=== PATIENT | female | born 1975 | race Caucasian/White ===

== ENCOUNTER 2022-06-21 17:51 | Emergency (ER) | payer OTHER, SELFPAY ==
--- NOTE | ~2022-06-21 | US_ITS ---
EXAMINATION: US PELVIS CLINICAL INFORMATION: Pelvic pain after IUD placement COMPARISON: None TECHNIQUE: Ultrasound of the pelvis is performed using both transabdominal and transvaginal transducers along with Doppler. Transvaginal imaging is performed due to inadequate visualization transabdominally. FINDINGS: Uterus: The uterus is retroflexed and measures 6.2 x 3.7 x 3.9 cm. The double wall endometrial thickness is 0.5 mm. An IUD is present within the uterus which appears somewhat low extending into the lower uterine segment/cervix. It is 1.7 cm from the uterine fundus. The uterus is smooth in contour and has normal myometrial echogenicity. 3 subcentimeter fibroids are noted near the fundus with the largest measuring 0.8 cm and the smallest measuring 0.4 cm. Adnexa: Both ovaries are visualized. There is normal color flow to the adnexa. There is no ovarian torsion. There is no pelvic ascites or fluid collection. Right ovary measures 2.8 x 1.0 x 2.1 cm for a volume of 3 mL. Left ovary measures 2.1 x 1.6 x 1.0 cm for a volume of 2 mL. US/US pelvic and transvaginal IMPRESSION: 1. Low-lying IUD. 2. Small subcentimeter uterine fibroids.
[2022-06-21 18:15] VITALS: BP 157/76; PULSE 94; RESP 18; TEMP 37.3; O2SAT 98; BMI 29.8
--- NOTE | 2022-06-21 18:16 | ED_ITS ---
HPI - Female Genitourinary General Chief complaint: General Medical <CHARLIE Nix - Last Filed: 06/21/22 18:20> Stated complaint: IUD issues <CHARLIE Nix - Last Filed: 06/21/22 18:20> Time Seen by Provider: 06/21/22 19:23 <CHARLIE Nix - Last Filed: 06/21/22 18:20> Source: patient <Dorothy Maddox NP - Last Filed: 06/22/22 00:46> Mode of arrival: ambulatory <Dorothy Maddox NP - Last Filed: 06/22/22 00:46> Limitations: no limitations <Dorothy Maddox NP - Last Filed: 06/22/22 00:46> History of Present Illness HPI Narrative: 46-year-old female presents with a sharp stabbing pain in her uterus. Had an IUD placed on 06/17/2022. This sharp stabbing pain is also accompanied with bright red vaginal bleeding. She does not report any trauma, sexual intercourse, purulent drainage, fevers, chills, or abdominal distention. <Dorothy Maddox NP - Last Filed: 06/22/22 00:46> MD elicited complaint: vaginal bleeding and pelvic pain <Dorothy Maddox NP - Last Filed: 06/22/22 00:46> Pertinent past history: IUD <Dorothy Maddox NP - Last Filed: 06/22/22 00:46> Onset (ago): day(s) (4) <Dorothy Maddox NP - Last Filed: 06/22/22 00:46> Location of symptoms: pelvis <Dorothy Maddox NP - Last Filed: 06/22/22 00:46> Severity: moderate <Dorothy Maddox NP - Last Filed: 06/22/22 00:46> Severity scale (1-10): 7 <Dorothy Maddox NP - Last Filed: 06/22/22 00:46> Quality of pain: cramping and sharp <Dorothy Maddox NP - Last Filed: 06/22/22 00:46> Consistency: progressively worsening <Dorothy Maddox NP - Last Filed: 06/22/22 00:46> Vaginal discharge: none <Dorothy Maddox NP - Last Filed: 06/22/22 00:46> Vaginal bleeding: moderate and bright red <Dorothy Maddox NP - Last Filed: 06/22/22 00:46> Exacerbating factors: movement and other (Sitting) <Dorothy Maddox NP - Last Filed: 06/22/22 00:46> Relieving factors: none <Dorothy Maddox NP - Last Filed: 06/22/22 00:46> Associated symptoms: denies other symptoms <Dorothy Maddox NP - Last Filed: 06/22/22 00:46> Treatment prior to arrival: NSAIDs <Dorothy Maddox NP - Last Filed: 06/22/22 00:46> Sexual activity: No <Dorothy Maddox NP - Last Filed: 06/22/22 00:46> Patient : No <Dorothy Maddox NP - Last Filed: 06/22/22 00:46> Related Data Home medications: Previous Rx's Medication Instructions Recorded doxycycline monohydrate 100 mg 100 mg PO BID 7 days #14 caps 06/21/22 capsule metronidazole 500 mg tablet 500 mg PO Q12H 7 days #14 tabs 06/21/22 ondansetron 4 mg disintegrating 4 mg PO Q8H PRN nausea and 06/21/22 tablet vomiting #14 tabs <CHARLIE Nix - Last Filed: 06/21/22 18:20> Allergies/Adverse reactions: Allergies Allergy/AdvReac Type Severity Reaction Status Date / Time Sulfa (Sulfonamide Allergy Unknown SWELLING Unverified 02/27/20 15:19 Antibiotics) <CHARLIE Nix - Last Filed: 06/21/22 18:20> Review of Systems Review of Systems: Constitutional: No Fever, No Chills Cardiovascular: No Chest Pain, No SOB Respiratory: No Cough, No Dyspnea Gastrointestinal: No Nausea, No Vomiting, No Diarrhea, No abdominal Pain Genitourinary: Stabbing uterine pain status post IUD placement, No Dysuria, No Hematuria Musculoskeletal: No joint pain, No Myalgias, No Joint Swelling Skin: No Skin lacerations, No rash Neuro: No Weakness, No Numbness, No Paresthesias, No Dizziness, No Headache <Dorothy Maddox NP - Last Filed: 06/22/22 00:46> Yes all other systems are reviewed and are negative <Dorothy Maddox NP - Last Filed: 06/22/22 00:46> [facility], LAT[facility] Past Medical History Attestation statement: The following information was validated with the patient. <Dorothy Maddox NP - Last Filed: 06/22/22 00:46> Source: old records reviewed <Dorothy Maddox NP - Last Filed: 06/22/22 00:46> Social History Social History: Social History Advance Directives: No Advance Directives Information Provided: No Patient : No <CHARLIE Nix - Last Filed: 06/21/22 18:20> Physical Exam Vital Signs: Vital Signs: Last Vital Signs Temp 99.2 F 06/21/22 18:15 Pulse 94 06/21/22 18:15 Resp 18 06/21/22 18:15 BP 157/76 H 06/21/22 18:15 Pulse Ox 98 06/21/22 18:15 O2 Del Method 06/21/22 18:15 BMI result Body Mass Index 29.8 <CHARLIE Nix - Last Filed: 06/21/22 18:20> Vital Signs: Last Vital Signs Temp 99.2 F 06/21/22 18:15 Pulse 94 06/21/22 18:15 Resp 18 06/21/22 18:15 BP 157/76 H 06/21/22 18:15 Pulse Ox 98 06/21/22 18:15 O2 Del Method 06/21/22 18:15 BMI result Body Mass Index 29.8 <Dorothy Maddox NP - Last Filed: 06/22/22 00:46> Appearance: Alert. Oriented X3. No acute distress. Eyes: Pupils equal, round and reactive to light. ENT: Pharynx normal. Neck: Normal inspection. Neck supple. CVS: Normal heart rate and rhythm. Pulses normal. Respiratory: No respiratory distress. Breath sounds normal. Abdomen: Soft and nontender. Suprapubic tenderness noted to palpation. Genitourinary: Bright red blood per cervical os, plastic portion of the IUD visualized at the os with strings. IUD removed at this time. Skin: Skin warm and dry. Normal skin color. Normal skin turgor. Extremities: No lower extremity edema. It well balance were coordinated. Neuro: No motor deficit. No sensory deficit. Cranial nerves 2-12 intact <Dorothy Maddox NP - Last Filed: 06/22/22 00:46> Course Course Course Narrative: RME - 46 yo female presenting to the ER for evaluation of sharp, stabbing pain in the left pelvic area that radiates into the left leg, acutely worsening today at 5pm after having an IUD placed at [facility] on 06/17. Had severe cramping and bleeding over the weekend but those had improved. <CHARLIE Nix - Last Filed: 06/21/22 18:20> RME - 46 yo female presenting to the ER for evaluation of sharp, stabbing pain in the left pelvic area that radiates into the left leg, acutely worsening today at 5pm after having an IUD placed at [facility] on 06/17. Had severe cramping and bleeding over the weekend but those had improved. 46-year-old female presents for stabbing uterine pain after IUD placement on 06/17/2022. Patient states that she has been unable to sit because of this stabbing pain, has been taking Motrin on a regular basis however the pain has gradually increased. She has been experiencing some vaginal bleeding, bright red blood, requiring multiple pad changes. Patient states that she does not feel right. She does not report fevers, chills, purulent vaginal discharge, or reports of vaginal trauma or sexual activity since placement of the IUD. Pelvic ultrasound indicates a low placed IUD. Pelvic exam completed with elephant keeper, the bottom portion of the plastic IUD visualized at the cervical os, bright red blood per os, otherwise pelvic exam is normal. IUD removed with ring clamp without difficulty. Patient does have some cervical motion tenderness, no purulent drainage noted. Considering that this IUD was not placed properly, patient has high risk for infection, also has cervical motion tenderness, I feel treating her for PID would be appropriate. Will give ceftriaxone and doxycycline. Patient states to have no risk for sexually transmitted infection, ceftriaxone declined at this time. 20:13 patient tolerated procedure well. Bleeding is minimal, patient agrees to follow-up with radial drill press operator. Patient verbalized understanding of and agrees plan of care discharge home. Verbalized understanding of signs symptoms indicating need for emergent intervention. <Dorothy Maddox NP - Last Filed: 06/22/22 00:46> Medications Administered Discontinued Medications Generic Name Dose Route Start Last Admin Trade Name Freq PRN Reason Stop Dose Admin Diphtheria/Tetanus/Acell Pertussis 0.5 ml 06/21/22 20:33 06/21/22 20:40 Diphth,Pertus(Acell),Tet Adult 0.5 Ml Syringe IM 06/21/22 20:34 0.5 ml .ONCE ONE Administration Doxycycline Monohydrate 100 mg 06/21/22 20:19 06/21/22 20:40 Doxycycline Monohydrate 100 Mg Capsule PO 06/21/22 20:20 100 mg ONCE ONE Administration Metronidazole 500 mg 06/21/22 20:19 06/21/22 20:40 Metronidazole 500 Mg Tablet PO 06/21/22 20:20 500 mg ONCE ONE Administration <CHARLIE Nix - Last Filed: 06/21/22 18:20> Medications Administered Discontinued Medications Generic Name Dose Route Start Last Admin Trade Name Freq PRN Reason Stop Dose Admin Diphtheria/Tetanus/Acell Pertussis 0.5 ml 06/21/22 20:33 06/21/22 20:40 Diphth,Pertus(Acell),Tet Adult 0.5 Ml Syringe IM 06/21/22 20:34 0.5 ml .ONCE ONE Administration Doxycycline Monohydrate 100 mg 06/21/22 20:19 06/21/22 20:40 Doxycycline Monohydrate 100 Mg Capsule PO 06/21/22 20:20 100 mg ONCE ONE Administration Metronidazole 500 mg 06/21/22 20:19 06/21/22 20:40 Metronidazole 500 Mg Tablet PO 06/21/22 20:20 500 mg ONCE ONE Administration <Dorothy Maddox NP - Last Filed: 06/22/22 00:46> Medical Decision Making Differential Diagnosis Differential Diagnoses: The differential diagnosis associated with the presentation includes <Dorothy Maddox NP - Last Filed: 06/22/22 00:46> Pelvic inflammatory disease, IUD dislodgement <Dorothy Maddox NP - Last Filed: 06/22/22 00:46> Lab Data MDM Lab Attestation statement: I reviewed the patient's lab results. <Dorothy Maddox NP - Last Filed: 06/22/22 00:46> Independent Interpretation I performed an independent interpretation of an: Ultrasound <Dorothy Maddox NP - Last Filed: 06/22/22 00:46> Radiology Impression Discussion of test interpretation with radiology: I have reviewed the radiologist's reading. <Dorothy Maddox NP - Last Filed: 06/22/22 00:46> Radiologist Impression: CLINICAL INFORMATION:? Pelvic pain after IUD placement COMPARISON: None TECHNIQUE: Ultrasound of the pelvis is performed using both transabdominal and transvaginal transducers along with Doppler. Transvaginal imaging is performed due to inadequate visualization transabdominally. FINDINGS: Uterus: The uterus is retroflexed and measures 6.2 x 3.7 x 3.9 cm. The double wall endometrial thickness is 0.5 mm.? An IUD is present within the uterus which appears somewhat low extending into the lower uterine segment/cervix. It is 1.7 cm from the uterine fundus. The uterus is smooth in contour and has normal myometrial echogenicity. ? 3 subcentimeter fibroids are noted near the fundus with the largest measuring 0.8 cm and the smallest measuring 0.4 cm. Adnexa: Both ovaries are visualized. There is normal color flow to the adnexa. There is no ovarian torsion.? There is no pelvic ascites or fluid collection. Right ovary measures 2.8 x 1.0 x 2.1 cm for a volume of 3 mL. Left ovary measures 2.1 x 1.6 x 1.0 cm for a volume of 2 mL. US/US pelvic and transvaginal IMPRESSION: 1.? Low-lying IUD. 2.? Small subcentimeter uterine fibroids. <Dorothy Maddox NP - Last Filed: 06/22/22 00:46> Discharge Plan Discharge Clinical Impression: Encounter for IUD removal, Uterine adnexal pain <CHARLIE Nix - Last Filed: 06/21/22 18:20> Patient Disposition: Home, Self-Care <CHARLIE Nix - Last Filed: 06/21/22 18:20> Instructions: Pelvic Pain in Women (ED), Removal of Control Implant (DC) <CHARLIE Nix - Last Filed: 06/21/22 18:20> Additional Instructions: You were evaluated for pelvic pain after IUD placement. Pelvic ultrasound indicated a low placement of your IUD. We removed your IUD today. Please take doxycycline and Flagyl for symptoms consistent with pelvic inflammatory disease. Complete the entire course of these medications. Do not drink alcohol while taking Flagyl. Please follow-up with your radial drill press operator Thank you for choosing this emergency department for evaluation. Please follow-up with primary care physician as needed. Return to the emergency department for any new, concerning, or worsening symptoms. <CHARLIE Nix - Last Filed: 06/21/22 18:20> Prescriptions: New doxycycline monohydrate 100 mg capsule 100 mg PO BID 7 Days Qty: 14 0RF metronidazole 500 mg tablet 500 mg PO Q12H 7 Days Qty: 14 0RF ondansetron 4 mg tablet,disintegrating 4 mg PO Q8H PRN (Reason: nausea and vomiting) Qty: 14 0RF <CHARLIE Nix - Last Filed: 06/21/22 18:20> Referrals: Nathanael Ward MD [Physician] - 2 weeks <CHARLEI Nix - Last Filed: 06/21/22 18:20> Stand Alone Forms: Work/School Release <CHARLIE Nix - Last Filed: 06/21/22 18:20> Interventions: ED Discharge Assessment Last Done: 06/21/22 20:46 <CHARLIE Nix - Last Filed: 06/21/22 18:20> Discharge Date/Time: 06/21/22 20:47 <CHARLIE Nix - Last Filed: 06/21/22 18:20>
[2022-06-21] MEDS: Doxycycline Monohydrate 100 MG CAPSULE PO (20:40)
[2022-06-21] MEDS: metroNIDAZOLE 500 MG TABLET PO (20:40)
[2022-06-21] MEDS: Diphth,Pertus(ACell),Tet Adult 0.5 ML SYRINGE IM (20:40)
== END 2022-06-21 20:47 | disposition home or self-care (01) ==
PROVIDERS: Emergency Provider Internal Medicine; PCP Internal Medicine
DX: T83.84XA Pain due to genitourinary prosthetic devices, implants and grafts, initial encounter (principal); Y76.8 Miscellaneous obstetric and gynecological devices associated with adverse incidents, not elsewhere classified; Y92.9 Unspecified place or not applicable
CPT/HCPCS: 76830; 76856; 90471; 90715; 99282; 99284

== ENCOUNTER 2023-05-25 20:53 | Emergency (ER) | payer OTHER, SELFPAY ==
--- NOTE | ~2023-05-25 | XR_ITS ---
EXAMINATION: XR CHEST CLINICAL INFORMATION: SOB and COMPARISON: Cough TECHNIQUE: Frontal view of the chest was obtained. FINDINGS: No significant abnormality is noted involving the heart, lungs, mediastinum, bony thorax or soft tissues. XR/XR chest 1V IMPRESSION: Unremarkable chest examination.
[2023-05-25 21:14] VITALS: BP 190/94; PULSE 101; RESP 20; TEMP 37.1; O2SAT 95; BMI 31.8
[2023-05-25 22:06] LABS: Influenza A PCR NEGATIVE (Negative); Influenza B PCR NEGATIVE (Negative); Resp Syncy Virus RNA Qual PCR POSITIVE (Negative); SARS COV2 PCR INHOUSE NEGATIVE (Negative)
--- NOTE | 2023-05-25 23:03 | ED.GENADULT ---
HPI - General Adult General Chief complaint: Upper Respiratory Symptoms Stated complaint: Cold, chest congestion Time Seen by Provider: 05/25/23 22:52 Source: patient, RN notes reviewed and old records reviewed Mode of arrival: ambulatory Limitations: no limitations History of Present Illness HPI narrative: 47-year-old female with past medical history significant for asthma presents for evaluation of flu-like symptoms Patient reports that last week she had ?a cold. ? She states that was mild, she of her nose and a dry cough Her symptoms resolved a couple of days ago She states that even yesterday she felt well with no complaints Patient woke up this morning with body aches, subjective fevers, chest congestion, cough She has a history of asthma and feels as though she has been wheezing She states that she ran out of her albuterol inhaler Related Data Previous Rx's Medication Instructions Recorded doxycycline monohydrate 100 mg 100 mg PO BID 7 days #14 caps 06/21/22 capsule metronidazole 500 mg tablet 500 mg PO Q12H 7 days #14 tabs 06/21/22 ondansetron 4 mg disintegrating 4 mg PO Q8H PRN nausea and 06/21/22 tablet vomiting #14 tabs albuterol sulfate 90 mcg/actuation 2 puff inhalation Q4-6H PRN 05/25/23 aerosol inhaler shortness of breath or wheezing #8.5 grams Allergies Allergy/AdvReac Type Severity Reaction Status Date / Time Sulfa (Sulfonamide Allergy Unknown SWELLING Verified 05/25/23 21:19 Antibiotics) Review of Systems Constitutional: Constitutional: Reports body ache(s), Reports chills, Reports fever(s), Reports headache(s), Reports malaise and Reports weakness Eyes: Eyes: Denies blurry vision ENT: Reports headache(s), Reports sinus pressure and Reports sore throat Cardiovascular: Cardiovascular: Denies chest pain and Reports dyspnea Respiratory: Respiratory: Reports chest congestion, Reports cough, Reports dyspnea and Reports wheezing Gastrointestinal: Gastrointestinal: Denies abdominal pain, Denies nausea and Denies vomiting Musculoskeletal: Musculoskeletal: Denies back pain Integumentary/Breasts: Skin/Breast: Denies rash Neurologic: Reports headache(s) and Reports weakness Allergic/Immunologic: Allergic/Immunologic: Reports wheezing PMFSH Social History Social History Advance Directives: No Advance Directives Information Provided: Yes Physical Exam ED Vital Signs: Vital Signs - 24 hr 05/25/23 21:14 Temperature 98.7 F Pulse Rate 101 H Respiratory Rate 20 Blood Pressure 190/94 H Pulse Oximetry 95 Oxygen Delivery Method Room Air BMI result Body Mass Index 31.8 Const General: healthy appearing, comfortable, no acute distress, alert and awake Nutritional Appearance: well nourished Orientation/consciousness: patient oriented x3 HENMT Head: Yes normocephalic and Yes atraumatic Throat: Yes posterior oropharynx normal Eyes Eyelids: Yes eyelids normal Conjunctivae: conjunctivae normal Sclerae: sclerae normal Corneas: corneas normal Pupils: Equal, round and reactive pupils present EOM: EOMs intact bilaterally Neck Neck: Yes full ROM Resp Effort & Inspection: normal respiratory effort, able to speak in complete sentences, no audible wheezes and not labored Auscultation: clear to auscultation bilaterally Cardio Rate: regular rate Rhythm: regular rhythm GI Inspection: No distended Palpation (GI): Soft to palpation, not firm, nontender, no guarding and not rigid Skin General skin exam: no rashes or lesions noted and elasticity normal Neuro General: patient oriented x3 Cranial nerves: Yes Equal, round and reactive pupils present and Yes Bilaterally intact EOM present Cognition (Neuro): normal cognition Extrem Other: Moving all extremities well without any obvious deformities Medical Decision Making Medical Decision Making MDM Narrative: 47 old female presents for evaluation of leg symptoms. She tested positive for RSV. Her vital signs are stable. She has no evidence of hypoxia or respiratory distress, chest x-ray was clear. She will be discharged with symptomatic treatment only Differential Diagnosis Differential Diagnoses: The differential diagnosis associated with the presentation includes Viral syndrome Upper respiratory infection Asthma exacerbation Bronchitis Pneumonia RSV COVID-19 Lab Data Labs: Lab Results 05/25/23 Range/Units 21:23 Influenza Type A (PCR) NEGATIVE (Negative) Influenza Type B (PCR) NEGATIVE (Negative) RSV RNA Qual (PCR) POSITIVE A (Negative) SARS-CoV-2 RNA (RT-PCR) NEGATIVE (Negative) Independent Interpretation I performed an independent interpretation of an: Plain X-Ray (No acute infiltrate) Radiology Impression Discussion of test interpretation with radiology: I have reviewed the radiologist's reading. (Unremarkable chest examination) Discharge Plan Discharge Clinical Impression: RSV infection Patient Disposition: Home, Self-Care Instructions: Respiratory Syncytial Virus (ED) Additional Instructions: You tested positive for a virus call the RSV Use ibuprofen/Tylenol for any fevers, headaches or body aches Drink lots of fluids You may use any [id number] congestion or cough medicine Return for new or worsening symptoms Follow-up with your primary doctor Prescriptions: New albuterol sulfate 90 mcg/actuation HFA aerosol inhaler 2 puff inhalation Q4-6H PRN (Reason: shortness of breath or wheezing) Qty: 8.5 0RF No Action doxycycline monohydrate 100 mg capsule 100 mg PO BID 7 Days Qty: 14 0RF metronidazole 500 mg tablet 500 mg PO Q12H 7 Days Qty: 14 0RF ondansetron 4 mg tablet,disintegrating 4 mg PO Q8H PRN (Reason: nausea and vomiting) Qty: 14 0RF Stand Alone Forms: Work/School Release
[2023-05-25 23:51] VITALS: BP 166/73; PULSE 86; RESP 16; TEMP 36.8; O2SAT 97
== END 2023-05-25 23:54 | disposition home or self-care (01) ==
PROVIDERS: Emergency Provider Internal Medicine; PCP Internal Medicine
DX: J22 Unspecified acute lower respiratory infection (principal); B97.4 Respiratory syncytial virus as the cause of diseases classified elsewhere; R05.9 Cough, unspecified; Z20.822 Contact with and (suspected) exposure to COVID-19; Z20.828 Contact with and (suspected) exposure to other viral communicable diseases; Z79.899 Other long term (current) drug therapy
CPT/HCPCS: 0241U; 71045; 99283; 99284

== ENCOUNTER 2023-05-28 01:04 | Emergency (ER) | payer OTHER, SELFPAY ==
[2023-05-28 01:08] VITALS: BP 151/80; PULSE 101; RESP 16; TEMP 36.8; O2SAT 95; BMI 31.6
[2023-05-28 02:02] VITALS: BP 141/79; PULSE 90; RESP 20; TEMP 37.1; O2SAT 96
--- NOTE | 2023-05-28 02:55 | ED_ITS ---
HPI - URI/Sore Throat General Chief Complaint: Upper Respiratory Symptoms Stated Complaint: asthma attack Time Seen by Provider: 05/28/23 02:43 Source: patient Mode of arrival: ambulatory Limitations: no limitations History of Present Illness HPI Narrative: 47-year-old female history of asthma who presents emergency department for evaluation of RSV bronchitis. Patient states she has been sick for several days with nonproductive cough, shortness of breath and chest pain. Patient was seen here on 05/25/2023 and was diagnosed with RSV. Patient states that over the last 8-10 hours she has been coughing nonstop. She states that every time she coughs she has pain in her chest. She states she has been wheezing and feeling short of breath. She has been using her albuterol every 4 hours with no relief of her symptoms. She denied fever, chills, nausea or diarrhea. She states that she has had several episodes of severe cough which have caused her to vomit. Related Data Previous Rx's Medication Instructions Recorded doxycycline monohydrate 100 mg 100 mg PO BID 7 days #14 caps 06/21/22 capsule metronidazole 500 mg tablet 500 mg PO Q12H 7 days #14 tabs 06/21/22 ondansetron 4 mg disintegrating 4 mg PO Q8H PRN nausea and 06/21/22 tablet vomiting #14 tabs albuterol sulfate 90 mcg/actuation 2 puff inhalation Q4-6H PRN 05/25/23 aerosol inhaler shortness of breath or wheezing #8.5 grams prednisone 20 mg tablet 60 mg (3 x 20 mg) PO DAILY 5 days 05/28/23 #15 tabs Allergies Allergy/AdvReac Type Severity Reaction Status Date / Time Sulfa (Sulfonamide Allergy Unknown SWELLING Verified 05/28/23 01:19 Antibiotics) Review of Systems Review of Systems: Yes all other systems are reviewed and are negative [facility] Past Medical History [facility] Narrative: Past medical history: Asthma Social history: She denies tobacco, alcohol and drug use Social History Social History Advance Directives: No Advance Directives Information Provided: No Physical Exam Vital Signs: Vital Signs: Last Vital Signs Temp 98.8 F 05/28/23 02:02 Pulse 100 05/28/23 03:08 Resp 16 05/28/23 03:08 BP 141/79 H 05/28/23 02:02 Pulse Ox 96 05/28/23 02:02 O2 Del Method Room Air 05/28/23 02:02 BMI result Body Mass Index 31.6 Vital signs revealed an elevated blood pressure of 151/80, elevated pulse of 101. O2 saturation on room air was 95% Exam: General: Awake, alert in no distress, patient does have a very persistent nonproductive sounding cough Head: Normocephalic, atraumatic EENT: PERRL, Lids normal, sclera normal, conjunctiva normal, nose normal , ears normal, throat without erythema or exudates Neck: Supple, no adenopathy, no trachea midline or C-spine tenderness Lung: breath sounds symmetric, diffuse wheezing, no rales and no rhonchi Chest: symmetric movement, tenderness palpation of her anterior chest Heart: regular rate and rhythm, normal S1, S2 no murmurs or rubs Abdomen: soft, non-tender, nondistended, normal bowel sounds Back: no vertebral tenderness, no CVAT Extremities: no deformities, moves all extremities symmetrically Skin: no rashes, no lesion, normal color and warmth Neuro: Awake, alert, oriented, normal speech,moves all extremities symmetrically Psych: Pleasant, cooperative Medications Administered Discontinued Medications Generic Name Dose Route Start Last Admin Trade Name Freq PRN Reason Stop Dose Admin Albuterol Sulfate 2.5 mg/ 5 mg 05/28/23 03:02 05/28/23 03:07 Albuterol Sulfate 2.5 mg INHALE 05/28/23 03:03 5 mg ONCE ONE Administration Medical Decision Making Medical Decision Making [facility] Narrative: 47-year-old female with a history of asthma who was diagnosed with RSV bronchitis 2 days prior here in the emergency depart who is complaining of persistent cough causing chest pain, nausea and vomiting. Patient has been using her albuterol inhaler for her asthma every 4 hours with no relief for symptoms. She states she is continuing to wheeze therefore she came to emergency department for evaluation. Examination did reveal diffuse wheezing otherwise unremarkable. Patient was treated with the following: Albuterol nebulizer 5 mg x 1 and prednisone 60 mg orally Patient will be discharged home with a prescription for prednisone 60 mg x5 days to treat asthma exacerbation caused by RSV bronchitis Differential Diagnosis Differential Diagnoses: The differential diagnosis associated with the presentation includes Differential diagnosis includes was not limited to pneumonia, bacterial bronchitis, RSV bronchitis Discharge Plan Discharge Clinical Impression: RSV bronchitis, Asthma exacerbation Patient Disposition: Home, Self-Care Instructions: Asthma (ED) Additional Instructions: Continue using your albuterol inhaler 2 puffs every 4 hours as needed for wheezing and cough. Take prednisone 20 mg pills, 3 pills once a day for 5 days. While you are taking prednisone, do not take any NSAIDs (Motrin, Advil, ibuprofen, Aleve, naproxen). Follow-up with your doctor in 2 days. Please return to the emergency department if your symptoms get worse or if you develop any symptoms that are concerning to you. Prescriptions: New prednisone 20 mg tablet 60 mg PO DAILY 5 Days Qty: 15 0RF No Action doxycycline monohydrate 100 mg capsule 100 mg PO BID 7 Days Qty: 14 0RF metronidazole 500 mg tablet 500 mg PO Q12H 7 Days Qty: 14 0RF ondansetron 4 mg tablet,disintegrating 4 mg PO Q8H PRN (Reason: nausea and vomiting) Qty: 14 0RF albuterol sulfate 90 mcg/actuation HFA aerosol inhaler 2 puff inhalation Q4-6H PRN (Reason: shortness of breath or wheezing) Qty: 8.5 0RF
[2023-05-28] MEDS: Albuterol Sulfate 2.5 MG, Albuterol Sulfate (0.083%) 2.5 MG 5 MG INHALE (03:07)
[2023-05-28 03:08] VITALS: PULSE 100; RESP 16; O2SAT 93
[2023-05-28] MEDS: predniSONE 20 MG TABLET 60 MG PO (03:35)
[2023-05-28 03:40] VITALS: BP 157/65; PULSE 112; RESP 16
--- NOTE | 2023-05-28 03:45 | PC.NURSE ---
pt medicated according to mar. vss. pt ambulatory at discharge. pt calm and cooperative. pt provided with discharge plan. pt verbalized understanding of discharge plan
== END 2023-05-28 03:50 | disposition home or self-care (01) ==
PROVIDERS: Emergency Provider Emergency Medicine Emergency Medical Services; PCP Internal Medicine
DX: J20.5 Acute bronchitis due to respiratory syncytial virus (principal); J45.901 Unspecified asthma with (acute) exacerbation; R05.9 Cough, unspecified; R06.02 Shortness of breath
CPT/HCPCS: 94640; 99284

== ENCOUNTER 2023-09-23 23:41 | Emergency (ER) | payer OTHER, SELFPAY ==
[2023-09-23 23:45] VITALS: BP 145/89; PULSE 90; RESP 16; TEMP 36.7; O2SAT 96; BMI 29.7
[2023-09-24 00:31] LABS: MANUAL DIFF FLAG NO
[2023-09-24 00:33] LABS: Basophils Absolute Auto 0.1 X10*3/uL (0.0-0.2); Basophils Percent Auto 0.4 % (0-2); Eosinophils Absolute Auto 0.3 X10*3/uL (0.0-0.4); Eosinophils Percent Auto 1.7 % (0-4); Hematocrit 41.2 % (37.0-47.0); Hemoglobin 13.9 g/dl (12.0-16.0); Imm Gran Abs Auto 0.08 X10*3/uL (0.00-0.03); Imm Gran Pct Auto 0.4 % (0.0-0.4); Lymphocytes Absolute Auto 2.7 X10*3/uL (1.2-4.9); Lymphocytes Percent Auto 13.3 % (20-40); Mean Corpuscular HGB Conc 33.7 g/dl (31.0-35.0); Mean Corpuscular Hemoglobin 29.3 pg (27.0-33.0); Mean Corpuscular Volume 86.9 fL (80.0-98.0); Mean Platelet Volume 9.2 fL (9.4-12.3); Monocytes Absolute Auto 1.4 X10*3/uL (0.1-1.2); Monocytes Percent Auto 7.2 % (2-11); Neutrophils Absolute Auto 15.4 x10*3/uL (2.0-8.3); Platelet Count 442 X10*3/uL (160-400); Red Blood Count 4.74 X10*6/uL (4.20-5.50); Red Cell Distribution Width 13.2 % (11.0-16.0)
[2023-09-24 00:42] LABS: IDNOW Serial# 08D9AD1C; Strep A Nucleic Acid Negative (Negative)
[2023-09-24 00:56] LABS: Alanine Aminotransferase 17 U/L (0-31); Albumin Level 4.4 g/dL (3.5-5.0); Alkaline Phosphatase 95 U/L (39-117); Anion Gap 14 (12-20); Aspartate Amino Transferase 19 U/L (5-31); Bilirubin Total 0.5 mg/dL (0.0-1.0); Blood Urea Nitrogen 17 mg/dL (9-16); Calcium 9.5 mg/dL (8.4-10.2); Carbon Dioxide 25 mmol/L (22-29); Chloride 104 mmol/L (96-108); Creatinine Clr Calc Pharmacy 96.8; Estimated Glomerular Filt Rate > 60; Glucose Random 96 mg/dL (60-115); Potassium 3.2 mmol/L (3.3-5.1); Sodium 140 mmol/L (135-145); Total Protein 7.8 g/dL (6.5-8.0)
[2023-09-24 01:09] LABS: Influenza A PCR NEGATIVE (Negative); Influenza B PCR NEGATIVE (Negative); Resp Syncy Virus RNA Qual PCR NEGATIVE (Negative); SARS COV2 PCR INHOUSE NEGATIVE (Negative)
--- NOTE | 2023-09-24 03:56 | ED_ITS ---
HPI - General Adult General Chief complaint: Upper Respiratory Symptoms Stated complaint: sore and swollen throat, hard to swollen Time Seen by Provider: 09/24/23 03:29 Source: patient Mode of arrival: ambulatory Limitations: no limitations History of Present Illness HPI narrative: Patient with sore throat running nose started earlier today patient had oral sex with her boyfriend who was not Uro for last 1 week patient afraid might be having gonococcal infection in the mouth requesting the test denies any vaginal secretions Related Data Previous Rx's ?Medication ?Instructions ?Recorded doxycycline monohydrate 100 mg 100 mg PO BID 7 days #14 caps 06/21/22 capsule metronidazole 500 mg tablet 500 mg PO Q12H 7 days #14 tabs 06/21/22 ondansetron 4 mg disintegrating 4 mg PO Q8H PRN nausea and 06/21/22 tablet vomiting #14 tabs albuterol sulfate 90 mcg/actuation 2 puff inhalation Q4-6H PRN 05/25/23 aerosol inhaler shortness of breath or wheezing #8.5 grams prednisone 20 mg tablet 60 mg (3 x 20 mg) PO DAILY 5 days 05/28/23 #15 tabs cefuroxime axetil 500 mg tablet 500 mg PO BID 7 days #14 tabs 09/24/23 Allergies Allergy/AdvReac Type Severity Reaction Status Date / Time Sulfa (Sulfonamide Allergy Unknown SWELLING Verified 09/23/23 23:45 Antibiotics) Review of Systems 2 Review of Systems: Yes all other systems are reviewed and are negative [facility] Social History Social History Alcohol intake: former Smoked in Last 30 Days: No Use of substances other than those prescribed or required for medical reasons: No Advance Directives: No Advance Directives Information Provided: No Patient : No Physical Exam ED Vital Signs: Vital Signs - 24 hr 09/23/23 23:45 09/24/23 04:06 09/24/23 04:39 Temperature 98.1 F 98.3 F Pulse Rate 90 89 Respiratory Rate 16 12 Blood Pressure 145/89 H 149/91 H Pulse Oximetry 96 98 94 Oxygen Delivery Method Room Air Room Air Room Air BMI result Body Mass Index 29.7 Appearance: Alert. Oriented X3. No acute distress. ENT: Posterior pharynx erythematous with exudate on left tonsil Oral Mucosa moist Neck: Normal inspection. Neck supple. Upper cervical lymphadenopathy++ CVS: Normal heart rate and rhythm. Pulses normal. Respiratory: No respiratory distress. Equal air entry bilateral, no wheezing/rales/rhonchi Abdomen: Soft and nontender. Bowel sounds are present, Skin: Skin warm and dry. Normal skin color. Normal skin turgor. Extremities: No lower extremity edema. No calf tenderness Neuro: Oriented X 3. Medications Administered Discontinued Medications Generic Name Dose Route Start Last Admin Trade Name Freq PRN Reason Stop Dose Admin Sodium Chloride 1,000 mls @ 999 mls/hr 09/24/23 04:05 09/24/23 04:36 Ns IV 09/24/23 05:05 999 mls/hr .Q1H1M ONE Administration Ceftriaxone Sodium 1 gm/ 50 mls @ 100 mls/hr 09/24/23 04:05 09/24/23 04:36 Sodium Chloride IV 09/24/23 04:34 100 mls/hr ONCE ONE Administration Medical Decision Making Medical Decision Making [facility] Narrative: Patient with acute pharyngitis likely strep sample for GC was taken per patient's request patient was given 1 g of Rocephin and IV fluids patient's WBC count is elevated but lactic acid normal discharge patient home Differential Diagnosis Differential Diagnoses: The differential diagnosis associated with the presentation includes Strep pharyngitis/tonsillitis Lab Data [facility] Lab Attestation statement: I reviewed the patient's lab results. 09/24/23 00:26 09/24/23 00:26 Labs: Lab Results 09/24/23 09/24/23 Range/Units 00:26 04:31 WBC 20.0 H (4.8-10.8) X10*3/uL RBC 4.74 (4.20-5.50) X10*6/uL Hgb 13.9 (12.0-16.0) g/dl Hct 41.2 (37.0-47.0) % MCV 86.9 (80.0-98.0) fL MCH 29.3 (27.0-33.0) pg MCHC 33.7 (31.0-35.0) g/dl RDW 13.2 (11.0-16.0) % Plt Count 442 H (160-400) X10*3/uL MPV 9.2 L (9.4-12.3) fL Immature Gran % (Auto) 0.4 (0.0-0.4) % Neut % (Auto) 77.0 H (45-73) % Lymph % (Auto) 13.3 L (20-40) % [place] % (Auto) 7.2 (2-11) % Eos % (Auto) 1.7 (0-4) % Baso % (Auto) 0.4 (0-2) % Lymph # (Auto) 2.7 (1.2-4.9) X10*3/uL [place] # (Auto) 1.4 H (0.1-1.2) X10*3/uL Eos # (Auto) 0.3 (0.0-0.4) X10*3/uL Baso # (Auto) 0.1 (0.0-0.2) X10*3/uL Abs Immat Gran (auto) 0.08 H (0.00-0.03) X10*3/uL Absolute Neuts (auto) 15.4 H (2.0-8.3) x10*3/uL Absolute Nucleated RBC 0.000 (0.0-0.012) X10*3/uL Nucleated RBC % (auto) 0.0 (0.0-0.2) /100WBC Sodium 140 (135-145) mmol/L Potassium 3.2 L (3.3-5.1) mmol/L Chloride 104 (96-108) mmol/L Carbon Dioxide 25 (22-29) mmol/L Anion Gap 14 (12-20) BUN 17 H (9-16) mg/dL Creatinine 0.72 (0.5-1.4) mg/dL Estim Creat Clear Calc 96.8 Estimated GFR > 60 Random Glucose 96 (60-115) mg/dL Lactic Acid 0.9 (0.5-2.0) mmol/L Calcium 9.5 (8.4-10.2) mg/dL Total Bilirubin 0.5 (0.0-1.0) mg/dL AST 19 (5-31) U/L ALT 17 (0-31) U/L Alkaline Phosphatase 95 (39-117) U/L Total Protein 7.8 (6.5-8.0) g/dL Albumin 4.4 (3.5-5.0) g/dL Influenza Type A (PCR) NEGATIVE (Negative) Influenza Type B (PCR) NEGATIVE (Negative) RSV RNA Qual (PCR) NEGATIVE (Negative) SARS-CoV-2 RNA (RT-PCR) NEGATIVE (Negative) S. pyogenes GrpA LIONEL Negative (Negative) Discharge Plan Discharge Clinical Impression: Pharyngitis Patient Disposition: Home, Self-Care Instructions: Pharyngitis (ED) Additional Instructions: Likely you have strep pharyngitis although rapid test is negative Take antibiotic as prescribed Report to the ER if not better Tylenol/Motrin for fever/bodyache Prescriptions: New cefuroxime axetil 500 mg tablet 500 mg PO BID 7 Days Qty: 14 0RF No Action doxycycline monohydrate 100 mg capsule 100 mg PO BID 7 Days Qty: 14 0RF metronidazole 500 mg tablet 500 mg PO Q12H 7 Days Qty: 14 0RF ondansetron 4 mg tablet,disintegrating 4 mg PO Q8H PRN (Reason: nausea and vomiting) Qty: 14 0RF albuterol sulfate 90 mcg/actuation HFA aerosol inhaler 2 puff inhalation Q4-6H PRN (Reason: shortness of breath or wheezing) Qty: 8.5 0RF prednisone 20 mg tablet 60 mg PO DAILY 5 Days Qty: 15 0RF Print Language: Greek
[2023-09-24 04:06] VITALS: BP 149/91; PULSE 89; RESP 12; TEMP 36.8; O2SAT 98
[2023-09-24] MEDS: cefTRIAXone sodium 1 GM in 0.9 % Sodium Chloride 50 ML IV (04:36)
[2023-09-24] MEDS: 0.9 % Sodium Chloride 1,000 ML 999 ML IV (04:36)
[2023-09-24 04:39] VITALS: O2SAT 94
--- NOTE | 2023-09-24 04:42 | PC.NURSE ---
assumed care of pt, pt from home, a&ox4, respirations even and unlabored, pt reporting 10/10 sore throat x2 days, reports they are able to maintain fluids and food but reports increased pain with swallowing. pt reports having new boyfriend and reports she would like a swab to be sure of diseases. swabbed pt. swab sent to lab. 20G placed in right wrist, fluids hanging and antibiotics administered.
[2023-09-24 04:47] LABS: Lactic Acid 0.9 mmol/L (0.5-2.0)
[2023-09-24 06:14] VITALS: BP 149/73; PULSE 90; RESP 18; TEMP 36.8; O2SAT 95
[2023-09-24 06:28] VITALS: BP 149/73; PULSE 90; RESP 18; TEMP 36.8; O2SAT 95
[2023-09-25 18:13] LABS: C. trachomatis RNA TMA NOT DETECTED (NOT DETECTED); N. gonorrhoeae RNA TMA NOT DETECTED (NOT DETECTED)
== END 2023-09-24 06:29 | disposition home or self-care (01) ==
PROVIDERS: Emergency Provider Internal Medicine; PCP Internal Medicine
DX: J02.9 Acute pharyngitis, unspecified (principal); Z88.2 Allergy status to sulfonamides; Z03.818 Encounter for observation for suspected exposure to other biological agents ruled out
CPT/HCPCS: 0241U; 0353U; 36415; 80053; 83605; 85025; 87040; 87491; 87591; 87651; 96361; 96365; 99284; 99285; J0696

== ENCOUNTER 2023-12-02 17:26 | Emergency (ER) | payer OTHER, SELFPAY ==
--- NOTE | 2023-12-02 17:35 | ED_ITS ---
HPI - General Adult General Chief complaint: General Medical Stated complaint: foreign object stuck in rectum Time Seen by Provider: 12/02/23 17:46 Source: patient Mode of arrival: ambulatory Limitations: no limitations History of Present Illness ED Provider: Roni Patel APRN HPI narrative: 48-year-old female here with reports of butt plug stuck in her rectum for the last 1 hour. No abdominal pain, vomiting. Related Data Previous Rx's ?Medication ?Instructions ?Recorded doxycycline monohydrate 100 mg 100 mg PO BID 7 days #14 caps 06/21/22 capsule metronidazole 500 mg tablet 500 mg PO Q12H 7 days #14 tabs 06/21/22 ondansetron 4 mg disintegrating 4 mg PO Q8H PRN nausea and 06/21/22 tablet vomiting #14 tabs albuterol sulfate 90 mcg/actuation 2 puff inhalation Q4-6H PRN 05/25/23 aerosol inhaler shortness of breath or wheezing #8.5 grams prednisone 20 mg tablet 60 mg (3 x 20 mg) PO DAILY 5 days 05/28/23 #15 tabs cefuroxime axetil 500 mg tablet 500 mg PO BID 7 days #14 tabs 09/24/23 Allergies Allergy/AdvReac Type Severity Reaction Status Date / Time Sulfa (Sulfonamide Allergy Unknown SWELLING Verified 12/02/23 17:39 Antibiotics) Review of Systems Review of Systems: Yes all other systems are reviewed and are negative Constitutional: Constitutional: Reports no additional constitutional complaints, Denies body ache(s), Denies chills, Denies fever(s), Denies headache(s) and Denies weakness Eyes: Eyes: Reports no additional eye complaints and Denies change in vision ENT: Reports system reviewed and no additional complaints, except as documented, Denies dizziness, Denies headache(s), Denies nasal congestion, Denies nasal discharge and Denies neck pain Cardiovascular: Cardiovascular: Reports no additional cardiovascular complaints, Denies chest pain, Denies leg edema and Denies dyspnea Respiratory: Respiratory: Reports no additional respiratory complaints, Denies cough and Denies dyspnea Gastrointestinal: Gastrointestinal: Reports no additional gastrointestinal complaints, Denies abdominal pain, Denies diarrhea, Denies nausea and Denies vomiting Genitourinary: Genitourinary: Reports no additional female genitourinary complaints and Denies urinary incontinence Musculoskeletal: Musculoskeletal: Reports no additional musculoskeletal complaints, Denies back pain, Denies arthralgias, Denies joint swelling, Denies neck pain, Denies numbness and Denies tingling Integumentary/Breasts: Skin/Breast: Reports system reviewed and no additional complaints, except as docu and Denies rash Neurologic: Reports system reviewed and no additional complaints, except as documented, Denies Abnormal speech present, Denies dizziness, Denies headache(s), Denies numbness, Denies tingling and Denies weakness [facility] Past Medical History Attestation statement: The following information was validated with the patient. Source: old records reviewed and nursing notes reviewed Social History Social History Alcohol intake: former Advance Directives: No Advance Directives Information Provided: No Physical Exam ED Vital Signs: Vital Signs - 24 hr 12/02/23 17:37 12/02/23 18:03 Temperature 98 F 98 F Pulse Rate 88 88 Respiratory Rate 19 19 Blood Pressure 156/78 H 156/78 H Pulse Oximetry 98 98 Oxygen Delivery Method Room Air Room Air BMI result Body Mass Index 27.5 Const General: cooperative, healthy appearing, comfortable and no acute distress Orientation/consciousness: patient oriented x3 Limitations: no limitations HENMT Head: Yes normal to inspection Ears: hearing grossly normal bilaterally General nose exam: Normal external nose present Face and sinus: Yes normal facial exam Mouth: Normal oral and palatal mucosa present Throat: Yes posterior oropharynx normal Eyes General: appearance normal, both eyes and all related structures Pupils: Equal, round and reactive pupils present Neck Neck: Yes normal visual inspection Chest Chest palpation & inspection: normal inspection of the chest Resp Effort & Inspection: normal respiratory effort Auscultation: clear to auscultation bilaterally Cardio Rate: regular rate Rhythm: regular rhythm Peripheral pulses: Peripheral pulses 2+ throughout 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 Inspection: Yes normal to inspection Palpation (GI): Soft to palpation and nontender Auscultation: normal bowel sounds Rectal Exam - Female: visual inspection normal and other (FB felt) Back/Spine/Pelvis Thoracic/Lumbar Spine: thoracic and lumbar spine normal to inspection Skin General skin exam: no rashes or lesions noted Neuro General: patient oriented x3, no focal motor deficits and normal sensation to monofilament Cranial nerves: Yes Equal, round and reactive pupils present Cognition (Neuro): normal cognition Speech: No Abnormal speech present Gait exam (Neuro): Normal gait present Motor exam (neuro): 5/5 motor strength present throughout Extrem General: Yes normal to inspection Course Course Course Narrative: This is a rapid medical exam performed by Vaughn Wilder NP: Additional HPI, ROS, PE not included below will be deferred to primary provider. Patient is a 48-year-old female presenting to the ED with complaint of a glass butt plug in her rectum for the past 45 minutes. Reports mild pain to abdomen. States used too much lubricant and is unable to remove it herself. Plan: KUB Procedures Foreign Body Removal Site: rectum Description of foreign body: sex toy Sedation/Analgesia: none Technique: manual removal Complications: none Medical Decision Making Medical Decision Making MDM Narrative: 48-year-old female here with reports of butt plug stuck in her rectum for the last 1 hour. No abdominal pain, vomiting. See procedure note. Successful removal. Patient tolerating well. Differential Diagnosis Differential Diagnoses: The differential diagnosis associated with the presentation includes Rectal foreign body Admission/Observation Consideration of admission/observation: Escalation of care including admission/observation considered no reports of abdominal pain or vomiting with the soft nontender abdomen with low suspicion for bowel perforation requiring advanced imaging and/or admission Tests considered The following testing was considered but not selected: no reports of abdominal pain or vomiting with the soft nontender abdomen with low suspicion for bowel perforation requiring advanced imaging Discharge Plan Discharge Clinical Impression: Foreign body anus/rectum Patient Disposition: Home, Self-Care Instructions: Rectal Foreign Body (ED) Prescriptions: No Action doxycycline monohydrate 100 mg capsule 100 mg PO BID 7 Days Qty: 14 0RF metronidazole 500 mg tablet 500 mg PO Q12H 7 Days Qty: 14 0RF ondansetron 4 mg tablet,disintegrating 4 mg PO Q8H PRN (Reason: nausea and vomiting) Qty: 14 0RF albuterol sulfate 90 mcg/actuation HFA aerosol inhaler 2 puff inhalation Q4-6H PRN (Reason: shortness of breath or wheezing) Qty: 8.5 0RF prednisone 20 mg tablet 60 mg PO DAILY 5 Days Qty: 15 0RF cefuroxime axetil 500 mg tablet 500 mg PO BID 7 Days Qty: 14 0RF Interventions: ED Discharge Assessment Last Done: 12/02/23 18:03 Print Language: Albanian
[2023-12-02 17:37] VITALS: BP 156/78; PULSE 88; RESP 19; TEMP 36.6; O2SAT 98; BMI 27.5
[2023-12-02 18:03] VITALS: BP 156/78; PULSE 88; RESP 19; TEMP 36.6; O2SAT 98
--- NOTE | 2023-12-02 18:05 | PC.NURSE ---
nad, no complaints now, tolerated well per pt
--- OUTSIDE RECORDS SUMMARY | 2023-12-07 07:12 | XMS_ITS | Continuity of Care Document ---
Author Organization [facility] Address [address] [place] [address]- Care Team Providers Care Torch Brazer Name Role Phone MD Queen David B Primary Care Physician Encounter [facility] Date(s): 10/21/21 - 02/08/22 [facility] [address] [place] [id number] Discharge Disposition: A-D/C Home Attending Physician: Juan Daniel Carrillo MD Admitting Physician: Juan Daniel Carrillo MD Referring Physician: Samy BURGER, Bairon Sharma Allergies, Adverse Reactions, Alerts Substance Reaction Severity Status sulfADIAZINE EYE REACTION Active Medications albuterol 90 mcg/inh inhalation aerosol with adapter 2, puffs, Inhalation, 4 times a day, 0, 0, 12/20/06 16:20:17, Print FRANCISCO Number, [id number], Constant Indicator Start Date: 12/20/06 Status: Ordered Bentyl 10 mg oral capsule = 20 mg, By Mouth, 4 times a day, 0 Refills, Maintenance, 10/11/18 9:14:59 EDT Start Date: 10/11/18 Status: Ordered lamotrigine 150 mg oral tablet = 125 mg, By Mouth, 2 times a day, # 60 tablet, 0 Refills, Maintenance, 10/11/18 9:14:44 EDT, Tablet Start Date: 10/11/18 Status: Ordered Elidia 1, tablet, By Mouth, Daily, 0, 0, 03/15/07 16:00:09, Print FRANCISCO Number, [id number], Constant Indicator Start Date: 03/15/07 Status: Ordered Social History Social History Type Response Smoking Status Former smoker, quit more than 30 days ago entered on: 12/12/18 Sex Care Team Personnel Name: MD Queen David B Address: [address] [place] [address], [address] Floor [facility] [place] [address]-
--- OUTSIDE RECORDS SUMMARY | 2023-12-07 07:12 | XMS_ITS | Continuity of Care Document ---
Author Organization [facility] Address [address] [place] [address]- Care Team Providers Care Auto Parts Manager Name Role Phone MD Queen David B Primary Care Physician Encounter [facility] [facility] [id number] Date(s): 10/27/23 - 11/26/23 [facility] [address] [place] [id number] Attending Physician: Conrad Holder Admitting Physician: AdmtrConrad Referring Physician: Admtr [id number] Allergies, Adverse Reactions, Alerts Substance Reaction Severity [...] 0, 0, 03/15/07 16:00:09, Print FRANCISCO Number, [id number], Constant Indicator Start Date: 03/15/07 Status: Ordered Social History Social History Type Response Smoking Status Former smoker, quit more than 30 days ago entered on: 12/12/18 Sex Patient Care team information Care Team Personnel Name: MD Queen David B Position: [facility] Outreach Member Role: PCP Address: Address: [address] [place] [address], [address] Floor [facility] [place] [address]- Name: Karlene Stone Position: [facility] Outreach Member Role: Lifetime Consulting Physician Name: Nupur James RN Position: [facility] Onco RN Member Role: Primary Care Nurse Care Team Related Persons Name: ARASELI XAVIER Address: home [address] [place] [address] Name: ZBIGNIEW MANTILLA Address: home [address] [place] [address]
--- OUTSIDE RECORDS SUMMARY | 2023-12-07 07:12 | XMS_ITS | Continuity of Care Document ---
Author Organization [facility] Address [address] [place] [address]- Care Team Providers Care Bath Steward/Stewardess Name Role Phone MD Queen David B Primary Care Physician Encounter [facility] [place] Date(s): 03/02/23 - 04/01/23 [facility] [address] [place], [place] [address] Attending Physician: [id number] Admitting Physician: Admtr, Ar8 Referring Physician: Admtr, Ar8 Allergies, Adverse Reactions, Alerts Substance Reaction [...] 0, 0, 03/15/07 16:00:09, Print FRANCISCO Number, [email or web address], Constant Indicator Start Date: 03/15/07 Status: Ordered Social History Social History Type Response Smoking Status Former smoker, quit more than 30 days ago entered on: 12/12/18 Sex Patient Care team information Care Team Personnel Name: MD Queen David B Position: S Outreach Member Role: PCP Address: Address: [address] [place] [address] 3rd Floor [facility] [place] [address]- [place] Name: Karlene Stone Position: [facility] Outreach Member Role: Lifetime Consulting Physician Name: Nupur James RN Position: [facility] Onco RN Member Role: Primary Care Nurse Care Team Related Persons Name: ARASELI XAVIER Address: home [address] [place] [address] Name: ZBIGNIEW MANTILLA Address: home [address] [place] [address]
--- OUTSIDE RECORDS SUMMARY | 2023-12-07 07:12 | XMS_ITS | Continuity of Care Document ---
Author Organization [facility] Address [address] [place] [address]- Care Team Providers Care Staff Trainer Name Role Phone MD Bret, Kye Pace Primary Care Physician [place] [facility] [place] 10[place]12[place]20 - 01/19/21 [facility] [address] [place], [place] [address] Discharge Disposition: A-D/C Home Attending Physician: Juan [...] 0, 0, 03/15/07 16:00:09, Print FRANCISCO Number, [id number], Constant Indicator Start Date: 03/15/07 Status: Ordered Social History Social History Type Response Smoking Status Former smoker, quit more than 30 days ago entered on: 12/12/18 Sex
--- OUTSIDE RECORDS SUMMARY | 2023-12-07 07:12 | XMS_ITS | Continuity of Care Document ---
Author Organization [facility] Address [address] [place] [address]- Care Team Providers Care Dispatcher Maintenance Service Name Role Phone MD Bret, Kye Pace Primary Care Physician Encounter [facility] [place] Date(s): 07/23/19 - 08/02/19 [facility] [address] [place] [address]- [facility] Attending Physician: Admdevi, Conrad Admitting Physician: AdmtrConrad Referring Physician: Admtr, Ar8 Allergies, Adverse Reactions, [...] 0, 0, 03/15/07 16:00:09, Print FRANCISCO Number, [id number], Constant Indicator Start Date: 03/15/07 Status: Ordered Social History Social History Type Response Smoking Status Former smoker, quit more than 30 days ago entered on: 12/12/18 Sex
--- OUTSIDE RECORDS SUMMARY | 2023-12-07 07:12 | XMS_ITS | Continuity of Care Document ---
Author Organization [facility] Address [address] [place] [address]- Care Team Providers Care Online Content Editor Name Role Phone MD Queen David B Primary Care Physician Encounter [facility] [place] Date(s): 03/02/23 - 06/16/23 [facility] [address] [place] [address] Discharge Disposition: A-D/C Home Attending Physician: Juan [...] 0, 0, 03/15/07 16:00:09, Print FRANCISCO Number, [id number], Constant Indicator Start Date: 03/15/07 Status: Ordered Social History Social History Type Response Smoking Status Former smoker, quit more than 30 days ago entered on: 12/12/18 Sex Patient Care team information Care Team Personnel Name: MD Queen David B Position: [facility] Outreach Member Role: PCP Address: Address: [address] [facility], 3rd Floor [facility] [place] [address]- Name: Karlene Stone Position: [facility] Outreach Member Role: Lifetime Consulting Physician Name: Nupur James RN Position: [facility] Onco RN Member Role: Primary Care Nurse Care Team Related Persons Name: ARASELI XAVIER Address: [address] [place] [address] Name: ZBIGNIEW MANTILLA Address: home [address] [place] [address]
--- OUTSIDE RECORDS SUMMARY | 2023-12-07 07:12 | XMS_ITS | Continuity of Care Document ---
Author Organization [facility] Address [address] [place] [address]- Care Team Providers Care Plant Sciences Professor Name Role Phone MD Bret, Kye Pace Primary Care Physician Encounter [facility] [place] Date(s): 07/23/19 - 10/12/20 [facility] [address] [place], [place] [address] Discharge Disposition: A-D/C Home Attending Physician: [...] 0, 0, 03/15/07 16:00:09, Print FRANCISCO Number, [id number], Constant Indicator Start Date: 03/15/07 Status: Ordered Social History Social History Type Response Smoking Status Former smoker, quit more than 30 days ago entered on: 12/12/18 Sex
--- OUTSIDE RECORDS SUMMARY | 2023-12-07 07:12 | XMS_ITS | Continuity of Care Document ---
Author Organization [facility] Address [address] [place] [address]- Care Team Providers Care Morphologist Name Role Phone MD Bret, Kye Pace Primary Care Physician En[place] [facility] [place] Date(s): 10/21/21 - 11/20/21 [facility] [address] [place] [address]- Attending Physician: Admtr, Ye8 Admitting Physician: Admtr, Ar8 Referring Physician: Admtr, [...] 0, 0, 03/15/07 16:00:09, Print FRANCISCO Number, [id number], Constant Indicator Start Date: 03/15/07 Status: Ordered Social History Social History Type Response Smoking Status Former smoker, quit more than 30 days ago entered on: 12/12/18 Sex
--- OUTSIDE RECORDS SUMMARY | 2023-12-07 07:12 | XMS_ITS | Continuity of Care Document ---
Author Organization [facility] for [facility] Address [address] [place] [address]- Care Team Providers Care Tag Maker Name Role Phone MD Bret, Kye Pace Primary Care Physician [place] [facility] [place] Date(s): 10/12/20 - 11/11/20 [facility] [address] [place] [address]- Attending Physician: Admtr, Ye8 Admitting Physician: Admtr, [...] 0, 0, 03/15/07 16:00:09, Print FRANCISCO Number, [email or web address], Constant Indicator Start Date: 03/15/07 Status: Ordered Social History Social History Type Response Smoking Status Former smoker, quit more than 30 days ago entered on: 12/12/18 Sex
== END 2023-12-02 18:05 | disposition home or self-care (01) ==
PROVIDERS: Emergency Provider Student in an Organized Health Care Education/Training Program; PCP Internal Medicine
DX: T18.5XXA Foreign body in anus and rectum, initial encounter (principal); W44.B3XA Plastic toy and toy part entering into or through a natural orifice, initial encounter; Y93.89 Activity, other specified; Y92.9 Unspecified place or not applicable; Y99.9 Unspecified external cause status
CPT/HCPCS: 99282

== ENCOUNTER 2024-05-02 11:39 | Emergency (ER) | payer MEDICAID, SELFPAY ==
[2024-05-02 11:47] VITALS: BP 164/90; BP 99/60; PULSE 100; PULSE 82; RESP 16; TEMP 37.3; O2SAT 95; O2SAT 96; BMI 26.6
--- NOTE | 2024-05-02 12:13 | ED_ITS ---
HPI - URI/Sore Throat General Chief Complaint: Upper Respiratory Symptoms Stated Complaint: SORE THROAT/N/V PER EMS Time Seen by Provider: 05/02/24 12:05 Source: patient Mode of arrival: ambulatory Limitations: no limitations History of Present Illness ED Provider: Roni Christina PA-C HPI Narrative: 48 y/o female presents to the ER for evaluation of a sore throat, nausea and dry heaving that started this morning around 5am. She reports waking up with a sore throat and then getting nausea, headaches, body aches and sweats. She started dry heaving. She denied associated abdominal pain. normal BM today. MD elicited complaint: sore throat and other (headache, dry heaving) Onset (ago): hour(s) Consistency: progressively worsening Severity: moderate Able to tolerate fluids by mouth: No Exacerbating factors: swallowing Relieving factors: NSAID Associated symptoms: chills, headache, nasal congestion, sore throat, cough, nausea and vomiting Treatments prior to arrival: none Related Data Previous Rx's ?Medication ?Instructions ?Recorded doxycycline monohydrate 100 mg 100 mg PO BID 7 days #14 caps 06/21/22 capsule metronidazole 500 mg tablet 500 mg PO Q12H 7 days #14 tabs 06/21/22 ondansetron 4 mg disintegrating 4 mg PO Q8H PRN nausea and 06/21/22 tablet vomiting #14 tabs albuterol sulfate 90 mcg/actuation 2 puff inhalation Q4-6H PRN 05/25/23 aerosol inhaler shortness of breath or wheezing #8.5 grams prednisone 20 mg tablet 60 mg (3 x 20 mg) PO DAILY 5 days 05/28/23 #15 tabs cefuroxime axetil 500 mg tablet 500 mg PO BID 7 days #14 tabs 09/24/23 amoxicillin 875 mg-potassium 1 tab PO BID #14 tabs 05/02/24 clavulanate 125 mg tablet naproxen 500 mg tablet 500 mg PO BID PRN pain #20 tabs 05/02/24 ondansetron 4 mg disintegrating 4 mg PO Q8H PRN nausea and 05/02/24 tablet vomiting #7 tabs Allergies Allergy/AdvReac Type Severity Reaction Status Date / Time Sulfa (Sulfonamide Allergy Unknown SWELLING Verified 05/02/24 11:50 Antibiotics) Review of Systems Review of Systems: Yes all other systems are reviewed and are negative [facility] Social History Social History Alcohol intake: former Advance Directives: No Advance Directives Information Provided: Yes Physical Exam Vital Signs: Vital Signs: Last Vital Signs Temp 99.1 F 05/02/24 11:47 Pulse 82 05/02/24 11:47 Resp 16 05/02/24 11:47 BP 99/60 05/02/24 11:47 Pulse Ox 96 05/02/24 11:47 O2 Del Method Room Air 05/02/24 11:47 BMI result Body Mass Index 26.6 Appearance: Alert. Oriented X3. No acute distress. Head: normocephalic, atraumatic. Eyes: Pupils equal, round and reactive to light. ENT: Pharynx with moderate posterior pharyngeal erythema + tonsillar swelling w/ exudates on the right. uvula midline, normal voice. Neck: Normal inspection. Neck supple. CVS: Normal heart rate and rhythm. Pulses normal. Respiratory: No respiratory distress. Breath sounds normal. Abdomen: Soft and nontender. +BS x4 Skin: Skin warm and dry. Normal skin color. Normal skin turgor. No rashes. Extremities: No lower extremity edema. No joint swelling. Neuro/psych: Oriented X 3. No motor deficit. No sensory deficit. CN II-XII intact. Normal speech and cognition. Medications Administered Discontinued Medications Generic Name Dose Route Start Last Admin Trade Name Freq PRN Reason Stop Dose Admin Acetaminophen 975 mg 05/02/24 12:25 05/02/24 12:30 Acetaminophen 325 Mg Tablet PO 05/02/24 12:26 975 mg ONCE ONE Administration Ondansetron HCl 4 mg 05/02/24 12:25 05/02/24 12:30 Ondansetron Odt 4 Mg Tab.Rapdis TRANSLINGU 05/02/24 12:26 4 mg ONCE ONE Administration Medical Decision Making Medical Decision Making MDM Narrative: 48 yo female presenting with sore throat, nausea, dry heaving, headache, muscle aches since this morning. unable to tolerate PO at home. VSS on arrival. exam with moderate tonsilar swelling, erythema and exudate c/w strep pharyngitis viral PCR negative strep test negative given exam findings will treat she is feeling better after zofran and tylenol. stable for d/c home with supportive care and abx Differential Diagnosis Differential Diagnoses: The differential diagnosis associated with the presentation includes strep, covid, flu, rsv, other viral syndrome, gastroenteritis, pneumonia, no evidence of peritonsillar abcsess or retropharyngeal abscess Lab Data MDM Lab Attestation statement: I reviewed the patient's lab results. Labs: Lab Results 05/02/24 Range/Units 12:04 Influenza Type A (PCR) NEGATIVE (Negative) Influenza Type B (PCR) NEGATIVE (Negative) RSV RNA Qual (PCR) NEGATIVE (Negative) SARS-CoV-2 RNA (RT-PCR) NEGATIVE (Negative) S. pyogenes GrpA LIONEL Negative (Negative) External Record Review External record reviewed: Outpatient record and Prior outpatient labs Prescription Management I considered prescription management with: Pain Medication and Antibiotic Critical Care Time Critical Care Time Critical Care Time: No Discharge Plan Discharge Clinical Impression: Acute viral syndrome Patient Disposition: Home, Self-Care Instructions: Viral Syndrome (ED) Additional Instructions: You tested negative for COVID, Flu, RSV and Strep throat Your exam is consistent with Strep Take the prescribed antibiotics as directed, complete the entire course and do not miss any doses Rest and drink plenty of fluids Take the prescribed nausea medication as needed If you develop new or worsening symptoms call 911 or come back to the ER for further evaluation. Prescriptions: New naproxen 500 mg tablet 500 mg PO BID PRN (Reason: pain) Qty: 20 0RF amoxicillin-pot clavulanate 875-125 mg tablet 1 tab PO BID Qty: 14 0RF ondansetron 4 mg tablet,disintegrating 4 mg PO Q8H PRN (Reason: nausea and vomiting) Qty: 7 0RF No Action doxycycline monohydrate 100 mg capsule 100 mg PO BID 7 Days Qty: 14 0RF metronidazole 500 mg tablet 500 mg PO Q12H 7 Days Qty: 14 0RF ondansetron 4 mg tablet,disintegrating 4 mg PO Q8H PRN (Reason: nausea and vomiting) Qty: 14 0RF albuterol sulfate 90 mcg/actuation HFA aerosol inhaler 2 puff inhalation Q4-6H PRN (Reason: shortness of breath or wheezing) Qty: 8.5 0RF prednisone 20 mg tablet 60 mg PO DAILY 5 Days Qty: 15 0RF cefuroxime axetil 500 mg tablet 500 mg PO BID 7 Days Qty: 14 0RF Stand Alone Forms: Work/School Release Print Language: Kyrgyz
[2024-05-02 12:21] LABS: IDNOW Serial# 08D9AD1C; Strep A Nucleic Acid Negative (Negative)
[2024-05-02] MEDS: Ondansetron ODT 4 MG TAB.RAPDIS TRANSLINGU (12:30)
[2024-05-02] MEDS: Acetaminophen 325 MG TABLET 975 MG PO (12:30)
[2024-05-02 13:34] LABS: Influenza A PCR NEGATIVE (Negative); Influenza B PCR NEGATIVE (Negative); Resp Syncy Virus RNA Qual PCR NEGATIVE (Negative); SARS COV2 PCR INHOUSE NEGATIVE (Negative)
[2024-05-02 14:46] VITALS: BP 110/49; PULSE 96; RESP 16; TEMP 36.1; O2SAT 94
--- OUTSIDE RECORDS SUMMARY | 2024-05-03 14:44 | XMS_ITS | Continuity of Care Document ---
Author Organization [facility] Address [address] [place] [address]- Care Team Providers Care Supervisor [employer] Name Role Phone MD Queen David B Primary Care Physician Encounter [facility] [place] Date(s): 10/27/23 - 02/10/24 [facility] [address] [place] [address] Discharge Disposition: A-D/C Home Attending Physician: Juan Daniel Carrillo MD Admitting Physician: Juan Danile Carrillo MD Referring Physician: Bairon Pablo MD Allergies, Adverse Reactions, Alerts Substance Reaction Severity [...] 0, 0, 03/15/07 16:00:09, Print FRANCISCO Number, [id number], Constant Indicator Start Date: 03/15/07 Status: Ordered Social History Social History Type Response Smoking Status Former smoker, quit more than 30 days ago entered on: 12/12/18 Sex Patient Care team information Care Team Personnel Name: MD Bret, Kye Pace Position: [facility] Outreach Member Role: PCP Address: Address: [address] [place] [address], [address]rd Floor [facility] [place], [place] [address] Name: Karlene Stone Position: [facility] Outreach Member Role: Lifetime Consulting Physician Name: Nupur James RN Position: [facility] Onco RN Member Role: Primary Care Nurse Care Team Related Persons Name: ARASELI XAVIER Address: [address] [place] [address] Name: ZBIGNIEW MANTILLA Address: [address] [place] [address]
--- OUTSIDE RECORDS SUMMARY | 2024-05-03 14:45 | XMS_ITS | Continuity of Care Document ---
Author Organization [facility] ter Address [address] [place] [address]- Care Team Providers Care Airport Operations Manager Name Role Phone MD Bret, Kye Pace Primary Care Physician Encounter 04/29/24 - 04/30/[address] [address]- Attending Physician: Not on Staff, Attending MD Referring Physician: Not on Staff, Referring MD Encounter Type: [facility]RI Allergies, Adverse Reactions, Alerts Substance Criticality Severity Reaction Reaction Severity Status sulfADIAZINE EYE REACTION Acti ve Medications albuterol 90 mcg/inh inhalation aerosol with adapter 2, puffs, Inhalation, 4 times a day, 0 Refills Start Date: 12/20/06 Status: Ordered Repeat number: 1 Bentyl 10 mg oral capsule = 20 mg, By Mouth, 4 times a day, 0 Refills, Maintenance, 10/11/18 9:14:59 AM EDT Start Date: 10/11/18 Status: Ordered Repeat number: 1 lamotrigine 150 mg oral tablet = 125 mg, By Mouth, 2 times a day, # 60 tablet, 0 Refills, Maintenance, 10/11/18 9:14:44 AM EDT, Tablet Start Date: 10/11/18 Status: Ordered Quantity: 60.0 Unit: tablet Repeat number: 1 Elidia 1 tablet, By Mouth, Daily, 0 Refills, 03/15/07 4:00:09 PM EDT Start Date: 03/15/07 Status: Ordered Repeat number: 1 Social History Social History Type Response Smoking Status Former smoker, quit more than 30 days ago entered on: 12/12/18 Sex Sex Representation Female (finding) Patient Care team information Care Team Personnel Name: MD Bret, Kye Pace Position: [facility] Outreach Member Role: PCP Address: [address] [place] [address], [address] [facility] [place], [place] [address] Telecom: Name: Karlene Stone Position: [facility] Outreach Member Role: Lifetime Consulting Physician Name: Nupur James RN Position: [facility] Onco RN Member Role: Primary Care Nurse Care Team Related Persons Name: ARASELI XAVIER Name: ZBIGNIEW MANTILLA Insurance Providers Guarantor name: MARCOS VU [facility] Plan Information #: 1 Payer: [employer] INDEMN[employer] Member Number: NA Policy Number: NA Group Number: NA
== END 2024-05-02 14:47 | disposition home or self-care (01) ==
PROVIDERS: Emergency Provider Emergency Medicine
DX: B34.9 Viral infection, unspecified (principal); J02.9 Acute pharyngitis, unspecified; R11.2 Nausea with vomiting, unspecified; R51.9 Headache, unspecified; R09.81 Nasal congestion; Z03.818 Encounter for observation for suspected exposure to other biological agents ruled out
CPT/HCPCS: 0241U; 87651; 99283; 99284

== ENCOUNTER 2024-05-03 09:51 | Emergency (ER) | payer MEDICAID, SELFPAY ==
[2024-05-03 10:14] VITALS: BP 95/50; PULSE 91; RESP 16; TEMP 36.8; O2SAT 97; BMI 26.4
--- NOTE | 2024-05-03 10:17 | ED.GENADULT ---
HPI - General Adult General Chief complaint: General Medical Stated complaint: swollen throat diff swallowing Time Seen by Provider: 05/03/24 10:17 Source: patient Mode of arrival: ambulatory Limitations: no limitations History of Present Illness ED Provider: Sadia Candelaria NP HPI narrative: patient is a 48-year-old female who presents to the emergency department for evaluation. She states that she has been experiencing a sore throat for the past 2 days. She was seen in the emergency department yesterday, she was given a prescription for antibiotics of which she states she has taken 2 doses. She expresses concern that it feels more swollen than it was yesterday and she continues to have discomfort with swallowing. She reports in the past when she has had throat infection she always requires steroids for the swelling but did not think to mention it yesterday. Related Data Previous Rx's ?Medication ?Instructions ?Recorded doxycycline monohydrate 100 mg 100 mg PO BID 7 days #14 caps 06/21/22 capsule metronidazole 500 mg tablet 500 mg PO Q12H 7 days #14 tabs 06/21/22 ondansetron 4 mg disintegrating 4 mg PO Q8H PRN nausea and 06/21/22 tablet vomiting #14 tabs albuterol sulfate 90 mcg/actuation 2 puff inhalation Q4-6H PRN 05/25/23 aerosol inhaler shortness of breath or wheezing #8.5 grams prednisone 20 mg tablet 60 mg (3 x 20 mg) PO DAILY 5 days 05/28/23 #15 tabs cefuroxime axetil 500 mg tablet 500 mg PO BID 7 days #14 tabs 09/24/23 amoxicillin 875 mg-potassium 1 tab PO BID #14 tabs 05/02/24 clavulanate 125 mg tablet naproxen 500 mg tablet 500 mg PO BID PRN pain #20 tabs 05/02/24 ondansetron 4 mg disintegrating 4 mg PO Q8H PRN nausea and 05/02/24 tablet vomiting #7 tabs Allergies Allergy/AdvReac Type Severity Reaction Status Date / Time Sulfa (Sulfonamide Allergy Unknown SWELLING Verified 05/03/24 10:15 Antibiotics) Review of Systems Review of Systems: Yes all other systems are reviewed and are negative PMFSH Past Medical History Attestation statement: The following information was validated with the patient. Source: old records reviewed Social History Social History Alcohol intake: former Advance Directives: No Advance Directives Information Provided: Yes Do you have a plan to hurt others: No Plan Physical Exam ED Vital Signs: Vital Signs - 24 hr 05/03/24 10:14 05/03/24 11:58 Temperature 98.3 F 98.3 F Pulse Rate 91 91 Respiratory Rate 16 16 Blood Pressure 95/50 L 95/50 L Pulse Oximetry 97 97 Oxygen Delivery Method Room Air Room Air BMI result Body Mass Index 26.4 Appearance: Alert.?Oriented to person, place and time. No acute distress.?Normal affect. Eyes: Pupils equal, round and reactive to light.? ENT: Pharynx With posterior erythema, 3+ tonsillar hypertrophy bilaterally, exudates bilaterally. Uvula is midline. Normal voice. No trismus. No drooling. Neck: Normal inspection.? Neck supple.?? No cervical adenopathy. CVS: Heart sounds normal. Normal heart rate and rhythm.? Pulses normal.?? Respiratory: No respiratory distress.? Lung sounds clear to auscultation bilaterally?? Abdomen: Soft and non-tender. Normoactive bowel sounds.? Skin: Skin warm and dry.? Normal skin color.? No rashes or lesions. Neuro: Moves all extremities spontaneously. Sensation intact bilaterally. Ambulates with normal steady gait. Medications Administered Discontinued Medications Generic Name Dose Route Start Last Admin Trade Name Freq PRN Reason Stop Dose Admin Dexamethasone Sodium Phosphate 10 mg 05/03/24 10:57 05/03/24 11:01 Dexamethasone Sod Phosphate 10 Mg/Ml Vial PO 05/03/24 10:58 10 mg ONCE ONE Administration Medical Decision Making Medical Decision Making MDM Narrative: Patient is a 48-year-old female who presents to the emergency department for re-evaluation, was provided with a course of Augmentin yesterday for pharyngitis. She continues to have swelling and discomfort when swallowing. She is able to manage secretions. There is no hoarseness to her voice nor stridor. Examination at this time appears less consistent with RPA/ HYBRID POWERTRAIN DEVELOPMENT ENGINEER. She is tolerating oral intake. Given her degree of swelling, will provide a single dose of Decadron in the emergency department today. Advised continued use of Augmentin as previously prescribed. All questions answered. Stable for discharge Differential Diagnosis Differential Diagnoses: The differential diagnosis associated with the presentation includes ( see narrative above) External Record Review External record reviewed: Outpatient record Prescription Management I considered prescription management with: Antibiotic ( already prescribed) Discharge Plan Discharge Clinical Impression: Pharyngitis, Acute tonsillitis Patient Disposition: Home, Self-Care Instructions: Pharyngitis (ED), Tonsillitis (ED) Additional Instructions: complete your entire course of antibiotics as prescribed. Do not skip any doses or stopped taking early even if you begin to feel better. You received a single dose of a steroid in the emergency department today to help with the swelling that you are experiencing. You should seek re-evaluation if you develop new or worsening symptoms or concerns which includes but is not limited to fevers, shaking chills, difficulty breathing, inability to swallow, throat closing sensation, shortness of breath, inability to tolerate oral intake Prescriptions: No Action doxycycline monohydrate 100 mg capsule 100 mg PO BID 7 Days Qty: 14 0RF metronidazole 500 mg tablet 500 mg PO Q12H 7 Days Qty: 14 0RF ondansetron 4 mg tablet,disintegrating 4 mg PO Q8H PRN (Reason: nausea and vomiting) Qty: 14 0RF naproxen 500 mg tablet 500 mg PO BID PRN (Reason: pain) Qty: 20 0RF amoxicillin-pot clavulanate 875-125 mg tablet 1 tab PO BID Qty: 14 0RF ondansetron 4 mg tablet,disintegrating 4 mg PO Q8H PRN (Reason: nausea and vomiting) Qty: 7 0RF albuterol sulfate 90 mcg/actuation HFA aerosol inhaler 2 puff inhalation Q4-6H PRN (Reason: shortness of breath or wheezing) Qty: 8.5 0RF prednisone 20 mg tablet 60 mg PO DAILY 5 Days Qty: 15 0RF cefuroxime axetil 500 mg tablet 500 mg PO BID 7 Days Qty: 14 0RF Referrals: Physician,Unknown J [Primary Care Provider] - Interventions: ED Discharge Assessment Last Done: 05/03/24 11:58 Discharge Date/Time: 05/03/24 11:59 Print Language: Spanish
[2024-05-03] MEDS: dexAMETHasone sod phosphate 10 MG/ML VIAL PO (11:01)
[2024-05-03 11:58] VITALS: BP 95/50; PULSE 91; RESP 16; TEMP 36.8; O2SAT 97
== END 2024-05-03 11:59 | disposition home or self-care (01) ==
PROVIDERS: Emergency Provider Emergency Medicine
DX: J03.90 Acute tonsillitis, unspecified (principal)
CPT/HCPCS: 99282; 99283; J1100

== ENCOUNTER 2025-04-09 11:50 | Emergency (ER) | payer OTHER, SELFPAY ==
--- OUTSIDE RECORDS SUMMARY | 2024-01-02 09:40 | XMS_ITS ---
Author Organization [facility] Address [address] [place] [address] Care Team Providers Care Workday Senior Associate Name Role Phone Jesus (RETIRED) Elías BURGER Primary Care Provide Flynn Oliva [phone] REASON FOR VISIT COLON SCREENING Encounters Encounter Location Date Provider Diagnosis [facility] [address] [place] [address] 01/02/2024 Flynn Lopez Plan Of Treatment No Information Progress Notes * VANI VUOB: 6 (49 yo F)Acc No.[id number]:01/02/2024 Progress Notes Patient: MARCOS NEGRON Provider: Helen Lopez MD :1975 A ge:48 Y S ex:Female Date:01/02/2024 Address:[address] [place], [place] [id number] Pcp:Elías Lee (RETIRED )MD Subjective: * Chief Complaints: * 1 . COLON SCREENING. * Medical History: Objective: * Vitals: Assessment: Plan: * Treatment: * * The named appointment provid er may or may not be the originator of this progress note, and it is not deemed complete until electronically signed by the appointment provider. Sign off status: Pending * Provider: Helen Lopez MD Date: 01/02/2024 Generated for Kendy roach/Dionicio/Etelvinaitting on: 04:25 PM EDT
--- NOTE | ~2025-04-09 | XR_ITS ---
EXAMINATION: XR CHEST CLINICAL INFORMATION: sob COMPARISON: This chest x-ray May 2023 TECHNIQUE: 2 views of the chest were obtained. FINDINGS: No significant abnormality is noted involving the heart, lungs, mediastinum, bony thorax or soft tissues. XR/XR chest 2V IMPRESSION: Unremarkable examination. Electronically signed by: Melinda Alcantar MD 04/09/2025 12:41 PM EDT RP
--- NOTE | ~2025-04-09 | CT_ITS ---
EXAMINATION: CT HEAD WITHOUT CONTRAST CLINICAL INFORMATION: Headache COMPARISON: None available. TECHNIQUE: Contiguous axial imaging was performed from the skull base to vertex without intravenous administration of contrast. This CT examination was performed using dose optimization techniques as appropriate, variously including the following: *Automated exposure control *Adjustment of mA and/or kV according to patient size (this includes techniques or standardized protocols for targeted exams where dose is matched to indication/reason for exam; i.e. extremities or head) *Use of iterative reconstruction technique FINDINGS: There is no acute ischemic change. There is no intracranial hemorrhage. There is no mass-effect or midline shift. Basal cisterns and ventricles are within normal limits for age/cerebral volume. Orbits are symmetrical and unremarkable. Paranasal sinuses and mastoid air cells are pneumatized. There are no bony abnormalities. CT/CT head/brain wo IV con IMPRESSION: No acute intracranial abnormality. Electronically signed by: Jasbir Fatima MD 04/09/2025 02:16 PM EDT RP
[2025-04-09 12:04] VITALS: BP 137/57; PULSE 106; RESP 20; TEMP 37.7; O2SAT 96; BMI 27.7
--- NOTE | 2025-04-09 12:06 | ED_ITS ---
HPI - General Adult General Chief complaint: General Medical Stated complaint: Chest congestion, fatigue, migraine Time Seen by Provider: 04/09/25 12:32 Source: patient Mode of arrival: ambulatory Limitations: no limitations History of Present Illness ED Provider: DR. Chavez HPI narrative: 49-year-old female history of migraine using Lyrica to control her symptoms came in for 1 day history of headache similar to her migraine headache, generalized body ache, low-grade fever, chest congestion, dry cough, no exposure to sick contacts, no recent travel. Patient had to use 2 courses of antibiotic to clear UTI since the patient started on Lyrica last month patient feels that her urine is not cleared yet. No blurry vision, no weakness, numbness, no palpitation, no shortness of breath. Related Data Previous Rx's ?Medication ?Instructions ?Recorded doxycycline monohydrate 100 mg 100 mg PO BID 7 days #1 4 caps 06/21/22 capsule metronidazole 500 mg tablet 500 mg PO Q12H 7 days #14 tabs 06/21/22 ondansetron 4 mg disintegrating 4 mg PO Q8H PRN nausea and 06/21/22 tablet vomiting #14 tabs albuterol sulfate 90 mcg/actuation 2 puff inhalation Q 4-6H PRN 05/25/23 aerosol inhaler shortness of breath or wheez ing #8.5 grams prednisone 20 mg tablet 60 mg (3 x 20 mg) PO DAILY 5 days 05/28/23 #15 tabs cefuroxime axetil 500 mg tablet 500 mg PO BID 7 days # 14 tabs 09/24/23 amoxicillin 875 mg-potassium 1 tab PO BID #14 tabs clavulanate 125 mg tablet naproxen 500 mg tablet 500 mg PO BID PRN pain #20 t abs 05/02/24 ondansetron 4 mg disintegrating 4 mg PO Q8H PRN nausea and 05/02/24 tablet vomiting #7 tabs nitrofurantoin 100 mg PO Q12H 7 days #14 ca ps 04/09/25 monohydrate/macrocrystals 100 mg capsule (Macrobid) oseltamivir 75 mg capsule (Tamiflu) 75 mg PO Q12H 5 da ys #10 caps 04/09/25 Allergies Allergy/AdvReac Type Severity Reaction Status Date / Time Sulfa (Sulfonamide Allergy Unknown SWELLING Verified 04/09/25 12:07 Antibiotics) Review of Systems 2 Review of Systems: All other systems are reviewed and are negative Constitutional: Reports as per HPI and Reports no additional constitutional complaints Eyes: Reports as per HPI and Reports no additional eye complaints Reports system reviewed and no additional complaints, except as documented Cardiovascular: Reports as per HPI and Reports no additional cardiovascular complaints Respiratory: Reports as per HPI and Reports no additional respiratory complaints Gastrointestinal: Reports as per HPI and Reports no additional gastrointestinal complaints Genitourinary: Reports no additional female genitourinary complaints Musculoskeletal: Reports no additional musculoskeletal complaints Skin/Breast: Reports system reviewed and no additional complaints, except as docu Psychiatric: Reports no additional psychiatric complaints Endocrine: Reports no additional endocrine complaints Hematologic/Lymphatic: Reports no additional hematologic/lymphatic complaints Allergic/Immunologic: Reports no additional allergic/immunologic complaints Reports system reviewed and no additional complaints, except as documented and Reports Abnormal speech present [facility] Social History Social History Alcohol intake: former Advance Directives: No Advance Directives Information Provided: Yes Physical Exam ED Vital Signs: Vital Signs - 24 hr 04/09/25 12:04 Temperature 100 F Pulse Rate 106 H Respiratory Rate 20 Blood Pressure 137/57 L Pulse Oximetry 96 Oxygen Delivery Method Room Air BMI result Body Mass Index 27.7 Vital signs have been reviewed and appear to be correct. Blood pressure elevated. Heart rate normal. Respiratory rate normal. Temperature normal. Oxygen saturation normal. Appearance: Alert. Oriented X3. No acute distress. Head: Normal external exam. Normocephalic. Atraumatic. No Barba signs noted. No raccoon eyes noted Eyes: PERRLA. EOMI. Conjunctiva and sclera normal. Eyelids normal. ENT: TM's Normal. Pharynx normal. Uvula midline. Moist mucous membranes. No trismus noted. No drooling noted. No muffled voice noted. Neck: Normal inspection. Neck supple. FROM. No adenopathy. Thyroid Normal. No meningeal signs. No neck mass noted. CVS: Normal heart rate and rhythm. Heart sound normal. No murmurs noted. Pulses normal throughout. Respiratory: No respiratory distress. Painless inspiration. Breath sounds normal. No wheezes/rales/rhonchi noted. Chest nontender. No accessory muscle usage noted or decreased air movement noted. Abdomen: Soft and nontender. Bowel sounds normal in all 4 quadrants. No distention noted. No organomegaly noted. No visible injury noted. Back: No CVA tenderness. Full range of motion noted. Skin: Skin warm and dry. Normal skin color. Normal skin turgor. No rashes/lesions/lacerations noted. Extremities: No lower extremity edema. Extremities exhibit normal range of motion. Extremities nontender. Neuro: Mental status: Normal attention, orientation, memory, and affect. Cranial nerves: Pupils are equal, round and reactive to light, EOMI, visual monroe are fall, face is symmetric, facial sensations are normal. Motor examination normal muscle tone, strength to 4 extremities. DTR are +2, planter's are flexor. Sensory exam; normal coordination, no ataxia, gait stable. Cerebellar exam: [id number] and bswe-sz-qsai is normal. Extrapyramidal system: No tremors, no rigidity with normal facial expressions. Pronator drift not present Course Course Course Narrative: 49 yo F presented for URI symptoms; nasal congestions. Lung congestion. Increased fatigue. Think she has BV and dysuria. Thinks Lyrica is causing her infections. Rapid medical screening exam was performed. Patient stable at time of evaluation. Ligia Wagner, DO 04/09/25 1206 Reevaluation(s) Reevaluation #1: 49-year-old female with upper respiratory symptoms positive for influenza x1 day will start on Tamiflu. UTI will start on Macrobid. Time: 15:00 Medications Administered Discontinued Medications Generic Name Dose Route Start Last Admin Trade Name Freq PRN Reason Stop Dose Admin Acetaminophen 975 mg 04/09/25 12:09 04/09/25 13:03 Acetaminophen 325 Mg Tablet PO 04/09/25 12:10 Not Given ONCE ONE Lactated Ringer's 1,000 mls @ 999 mls/hr 04/09/25 13:00 04/09/25 13:17 Lr IV 04/09/25 14:00 999 mls/hr .Q1H1M EDITH Administration Acetaminophen 1,000 mg in 100 mls @ 400 mls/hr 04/09/25 12:46 04/09/25 13:17 Ofirmev IV 04/09/25 13:00 400 mls/hr ONCE ONE Administration Medical Decision Making Differential Diagnosis Differential Diagnoses: The differential diagnosis associated with the presentation includes (ACS, pneumonia, pneumothorax, pleural effusion, influenza, COVID-19 infection, intracranial bleed, migraine headache.) Admission/Observation Consideration of admission/observation: Escalation of care including admission/observation considered Lab Data MDM Lab Attestation statement: I reviewed the patient's lab results. 04/09/25 13:17 04/09/25 13:17 Labs: Lab Results 04/09/25 04/09/25 Range/Units 12: 13:17 WBC 7.0 (4.8-10.8) X10*3/uL RBC 4.47 (4.20-5.50) X10*6/uL Hgb 13.1 (12.0-16.0) g/dl Hct 41.2 (37.0-47.0) % MCV 92.2 (80.0-98.0) fL MCH 29.3 (27.0-33.0) pg MCHC 31.8 (31.0-35.0) g/dl RDW 13.4 (11.0-16.0) % Plt Count 279 D (160-400) X10*3/uL MPV 9.6 (9.4-12.3) fL Immature Gran % (Auto) 0.3 (0.0-0.4) % Neut % (Auto) 87.6 H (45-73) % Lymph % (Auto) 4.0 L (20-40) % [place] % (Auto) 7.6 (2-11) % Eos % (Auto) 0.1 (0-4) % Baso % (Auto) 0.4 (0-2) % Lymph # (Auto) 0.3 L (1.2-4.9) X10*3/uL [place] # (Auto) 0.5 (0.1-1.2) X10*3/uL Eos # (Auto) 0.0 (0.0-0.4) X10*3/uL Baso # (Auto) 0.0 (0.0-0.2) X10*3/uL Abs Immat Gran (auto) 0.02 (0.00-0.03) X10*3/uL Absolute Neuts (auto) 6.1 (2.0-8.3) x10*3/uL Absolute Nucleated RBC 0.000 (0.0-0.012) X10*3/uL Nucleated RBC % (auto) 0.0 (0.0-0.2) /100WBC Sodium 136 (135-145) mmol/L Potassium 3.6 (3.3-5.1) mmol/L Chloride 102 (96-108) mmol/L Carbon Dioxide 25 (22-29) mmol/L Anion Gap 13 (12-20) BUN 11 (9-16) mg/dL Creatinine 0.67 (0.5-1.4) mg/dL Estim Creat Clear Calc 99.5 Estimated GFR > 60 Random Glucose 176 H (60-115) mg/dL Calcium 8.7 D (8.4-10.2) mg/dL Troponin I High Sens < 2.7 (<3.5-17.0) ng/L Urine Color Yellow Urine Appearance Clear Urine pH 6.0 (5.0-9.0) Ur Specific Bedias 1.025 (1.005-1.025) Urine Protein Negative (Neg-Trace) mg/dL Urine Glucose (UA) 500 H (Negative) mg/dL Urine Ketones Trace (Negative) mg/dL Urine Blood Negative (Negative) Urine Nitrite Negative (Negative) Ur Leukocyte Esterase Moderate (2+) H (Negative) Urine RBC 0-2 (0-2) /HPF Urine WBC 11-20 H (0-5) /HPF Ur Squamous Epith Cells 3-5 (0-2) /HPF Urine Bacteria 1+ (None Seen) Hyaline Casts 0-2 (0-2) /LPF COVID-19 (AZUL) Negative (Negative) COVID-19 Clin Com See Note Influenza Type A (LIONEL) Positive A (Negative) Influenza Type B (LIONEL) Negative (Negative) Influenza A & B Note See Note Independent Interpretation I performed an independent interpretation of an: Plain X-Ray (Chest: No acute intrathoracic pathology.) Radiology Impression Discussion of test interpretation with radiology: I have reviewed the radiologist's reading. Discharge Plan Discharge Clinical Impression: Migraine, Influenza A, UTI (urinary tract infection) Patient Disposition: Home, Self-Care Instructions: Urinary Tract Infection in Women (DC) Prescriptions: New nitrofurantoin monohyd/m-cryst [Macrobid] 100 mg capsule 100 mg PO Q12H 7 Days Qty: 14 0RF Rx Instructions: must administer with a meal/food oseltamivir [Tamiflu] 75 mg capsule 75 mg PO Q12H 5 Days Qty: 10 0RF No Action doxycycline monohydrate 100 mg capsule 100 mg PO BID 7 Days Qty: 14 0RF metronidazole 500 mg tablet 500 mg PO Q12H 7 Days Qty: 14 0RF ondansetron 4 mg tablet,disintegrating 4 mg PO Q8H PRN (Reason: nausea and vomiting) Qty: 14 0RF naproxen 500 mg tablet 500 mg PO BID PRN (Reason: pain) Qty: 20 0RF amoxicillin-pot clavulanate 875-125 mg tablet 1 tab PO BID Qty: 14 0RF ondansetron 4 mg tablet,disintegrating 4 mg PO Q8H PRN (Reason: nausea and vomiting) Qty: 7 0RF albuterol sulfate 90 mcg/actuation HFA aerosol inhaler 2 puff inhalation Q4-6H PRN (Reason: shortness of breath or wheezing) Qty: 8.5 0RF prednisone 20 mg tablet 60 mg PO DAILY 5 Days Qty: 15 0RF cefuroxime axetil 500 mg tablet 500 mg PO BID 7 Days Qty: 14 0RF Print Language: Palauan
--- NOTE | 2025-04-09 12:13 | PC.NURSE ---
[place], about blood work needs, at this time MD Wagner only wanted swabs and urine
[2025-04-09 12:39] LABS: Appearance Urine Clear; Glucose Urine UA 500 mg/dL (Negative); PH 6.0 (5.0-9.0); Specific Gravity - Urine 1.025 (1.005-1.025); UMIC TRIGGER UA YES
--- NOTE | 2025-04-09 12:47 | ECG_ITS ---
Test Reason : CP Blood Pressure : */* mmHG Vent. Rate : 104 BPM Atrial Rate : 104 BPM P-R Int : 120 ms QRS Dur : 78 ms QT Int : 338 ms P-R-T Axes : 14 -9 17 degrees QTcB Int : 444 ms Sinus tachycardia Otherwise normal ECG No previous ECGs available Referred By: Martin Chavez Electronically Signed By: REBECA PHILLIPS
[2025-04-09 12:54] LABS: COVID-19 Test Negative (Negative); IDNOW Serial# 55D5AD1C; IDNOW Serial# 58CA691E
[2025-04-09 12:55] LABS: Influenza B2 Negative (Negative)
[2025-04-09] MEDS: Lactated Ringers 1,000 ML 999 ML IV (13:17)
[2025-04-09 13:21] LABS: MANUAL DIFF FLAG NO
[2025-04-09 13:39] LABS: Anion Gap 13 (12-20); Blood Urea Nitrogen 11 mg/dL (9-16); Calcium 8.7 mg/dL (8.4-10.2); Carbon Dioxide 25 mmol/L (22-29); Chloride 102 mmol/L (96-108); Creatinine Clr Calc Pharmacy 99.5; Estimated Glomerular Filt Rate > 60; Potassium 3.6 mmol/L (3.3-5.1); Sodium 136 mmol/L (135-145)
[2025-04-09 13:41] LABS: Hematocrit 41.2 % (37.0-47.0); Hemoglobin 13.1 g/dl (12.0-16.0); Imm Gran Abs Auto 0.02 X10*3/uL (0.00-0.03); Imm Gran Pct Auto 0.3 % (0.0-0.4); Lymphocytes Absolute Auto 0.3 X10*3/uL (1.2-4.9); Mean Corpuscular HGB Conc 31.8 g/dl (31.0-35.0); Mean Corpuscular Hemoglobin 29.3 pg (27.0-33.0); Mean Corpuscular Volume 92.2 fL (80.0-98.0); NRBC Abs Auto 0.000 X10*3/uL (0.0-0.012); NRBC Pct Auto 0.0 /100WBC (0.0-0.2); Platelet Count 279 X10*3/uL (160-400); Red Blood Count 4.47 X10*6/uL (4.20-5.50); White Blood Count 7.0 X10*3/uL (4.8-10.8)
[2025-04-09 13:49] LABS: Troponin-I High Sensitivity < 2.7 ng/L (<3.5-17.0)
[2025-04-09 15:07] VITALS: BP 137/57; PULSE 89; RESP 20; TEMP 37.7; O2SAT 96
--- OUTSIDE RECORDS SUMMARY | 2025-04-09 16:25 | XMS_ITS | Data Portability ---
Author Organization [place] - [facility], [facility] Address [address] [place] [address] Care Team Providers Care Supervisor Major [employer]liance [employer] Name Role Phone ERIC FLORES Primary Care Provider [phone] Assessment No assessment recorded. Plan of Treatment Reminders Order Date Submit Date Provider Last Modified By Organization Details Last Modified Time Details Appointments None recorded . Lab None recorded . Referral physical therapis t referral - Evaluate & Rx Cervical Stabiliz ation Program trigger point release, traction 2023 024 [facility] [place], [address] [place] [address] Rd, [address], [place], [address], 4 12:04:27 physical therapis t referral - right lateral epicondy litis rom, stretchi ng, strength ening 2023 024 [facility] - [place], [address] [place] [address] Rd, [address], [place], [address], 4 12:07:42 Procedures None recorded . Surgeries None recorded . Imaging XR, shoulder , 2 or more view - rm 119 c spine as well 2023 024 [facility], [address], [address], [place], [address], 4 13:00:38 XR, cervical spine, 1 view - rm 119 2023 024 [facility], [address], [address], [place], [address], 4 13:00:39 XR, elbow, 3 or more view - new pt 3 views right elbow rm 101 2023 024 [facility] Office, [address], [address], [place], [address], 4 11:01:09 Medication Orders Celebrex 200 mg capsule 2023 024 [facility], [address] [place] [address], [address], 4 11:01:09 Patient TargetsNo targets recorded. Patient InstructionsNo instructions recorded. Reason for Referral Physical Therapist Referral for Injury of elbow right lateral epicondylitis rom, stretching, strengthening Referring Physician: Christie Toussaint, Orthopedic Surgery, Encounter Date: 11/08/2023 Physical Therapist Referral for Pain of right shoulder joint Evaluate & RxCervical Stabilization Program trigger point release, traction Referring Physician: Ely Shay, Orthopedic Surgery, Encounter Date: 11/22/2023 Results Created Date Observation Date Name Description Value Unit Range Abnormal Flag Note LastModifiedBy Organization Detail LastModifiedTime 11/22/19 24 11/22/2023 XR, cervi lukasz spine , 1 view [email or web address]:/ [email or web address] ?Encry pted=s hAaTro YD8dLq bEUv6g %2BXZw aYqtaq 0bqfl% 2Fg9IQ a4ajBk vP9nXo QUaueC m3YtLR FvZlgJ JJ8mAn HZtai3 4z0498 AC0Kub n%2BNU areUC8 mr84%3 D INTERFACE [facility] Office [address], [place], [address], 11/22/2023 10:46:07 11/22/19 24 11/22/2023 XR, cervi lukasz spine , 1 view [email or web address]:/ [email or web address] ?Encry pted=s hAaTro YD8dLq bEUv6g %2BXZw aYqtaq 0bqfl% 2Fg9IQ a4ajBk vP9nXo QUaueC m3YtLR FvZlgJ JJ8mAn HZtai3 7w8993 AC0Kub n%2BNU areUC8 mr84%3 D INTERFACE [facility] [address], [place], [address], 11/22/2023 10:46:09 11/22/19 24 11/22/2023 XR, shanice bigg, 2 or more view http:/ [email or web address] ?Encry pted=s hAaTro YD8dLq bEUv6g %2BXZw aYqtaq 0bqfl% 2Fg9IQ a4ajBk vP9nXo QUaueC m3YtLR FvZlg JJ8Gillett HZtai3 9r5654 AC0Kub n%2BNU aTeUC8 mr84%3 D INTERFACE [facility] [address], [place], [address], 11/22/2023 10:48:54 11/22/19 24 11/22/2023 XR, shanice pride, 2 or more view http:/ [email or web address] ?Encry pted=s hAaTro YD8dLq bEUv6g %2BXZw aYqtaq 0bqfl% 2Fg9IQ a4ajBk vP9nXo QUaueC m3YtLR FvZlg JJ8mAn HZtai3 4x9481 AC0Kub n%2BNU aTeUC8 mr84%3 D INTERFACE [facility] [address], [place], [address], 11/22/2023 10:48:56 02/10/20 24 11/30/2021 imagi ng/di jonathanos tic resul t No observ ation record ed. [email or web address] Not Available 01/12 07:57:49 Result Notes Documentation Provider Name and Address Organization Details Recorded Time Xr, Cervical Spine, 1 View : [email or web address]? Encrypted=acTaTviUL3mYbzB Uv6g%6YIAaqJygad9gvcz%2Fg 2OWa8ysBgyZ1tNfJQmqnDb5We IDVxDphRWB4bMrCZqyf69m278 7PI1Brpw%9FFImmjYK5wc06%3 D Not Available [facility] 11/22/2023 10:46:07 Xr, Cervical Spine, 1 View : [email or web address]? Encrypted=ilLmLvdZJ7yMixZ Uv6g%4VTQsnWlrrp1xlws%2Fg 5EGz3ytJjdG9gXuPImawGr2Sc HYPoHwvXWX5lFyPUnma34b293 4ZE9Ldyt%5AYMqufDM2qr36%3 D Not Available [facility] 11/22/2023 10:46:09 Xr, Shoulder, 2 Or More View : [email or web address] Encrypted=rsYjChdNT0tZpaP Uv6g%6MRHcaButvn3xawj%2Fg 8UOm3jeNpyL3sSlXFkxcNb9Nj VWChTveJHS6qPkSZtmu48m660 4DC9Jjeq%4SSRxIbKS2no49%3 D Not Available [facility] 11/22/2023 10:48:54 Xr, Shoulder, 2 Or More View : [email or web address]? Encrypted=wmLmYhgHF3kHlsH Uv6g%4IDIggGlagl6grbz%2Fg 3HUv4siSnzN6jQgNBiptLm2Rq ONHkRdpXJC8lZdTZpln07e130 2BK9Zshk%0SXVcAiNR9ss51%3 D Not Available [facility] 11/22/2023 10:48:56 Problems Name Problem SNOMED Code Status Onset Date Resolution Date Notes Provider Name and Address Organization Details Recorded Time Impingement syndrome of right shoulder region 8207371549682 02 Active 2023 Ely Wong i, PA-C [address], [facility] [place], [address], [facility] 4 12:15:52 Neck pain 14460396 Active 2023 Ely Wong i, PA-C [address], [facility] [place], [address], [facility] 4 12:15:56 Pain of right shoulder joint 7087644186329 9100 Active 2024 Ely Daigle PA-C [address], [facility] [place], [address], [facility] 5 14:10:22 Myofascial pain 985182677 Active 2024 KAYLIA L'HEUREUX [facility] 5 15:10:43 Problem Notes None recorded. Procedures Surgical History Date Name Laterality Status Provider Name and Address Organization Details Recorded Time 4 Sports Shoulder completed Ely Shay PA-C [address], [place], [address], [facility] 11/22/2023 12:15:46 Imaging Results None recorded. Procedure Notes None recorded. Medical Equipment None Reported. Allergies Allergen ID Allergen Name Allergen Category Reaction Reaction Severity Criticality Documentation Date Start Date Code Code System Note Provider Name and Address Organization Details Recorded Time 31143 Substance with sulfonami de structure and antibacte rial mechanism of action (substanc e) medicatio n Not available Not available Not available 08/14/20232021 49803 8003 SNOMED Not Available [facility] 4 15:12:59 Medications Name Sig Start Date Stop Date Status Note LastModified by Organization Details LastModified Time dhea (keyla) 25mg capsule take 1 capsule by mouth once daily 11/21 completed Not Available Not Available Not Available w-estrogen vag crm 0.2mg/ml Apply 1.0 gm vaginally 2 to 3 times weekly as needed active Not Available Not Available No t Available amoxicillin 500 mg capsule TAKE 1 CAPSULE BY MOUTH TWICE DAILY FOR 10 DAYS. active Not Available Not Available No t Available Estring 2 mg (7.5 mcg/24 hour) vaginal ring PLACE 2 MG VAGINALLY EVERY 3 (THREE) MONTHS. FOLLOW PACKAGE DIRECTION S 11/21 completed Not Available Not Available Not Available Lidocaine Viscous 2 % mucosal solution TAKE 5 ML EVERY 4 TO 6 HOURS (PAIN) FOR 5 DAYS YOU MAY SWISH FOR 30 SECONDS AND SWALLOW OR SPIT 11/21 completed Not Available Not Available Not Available fluconazole 150 mg tablet TAKE ONE TABLET BY MOUTH NOW AND REPEAT IN 3 DAYS active Not Available Not Available No t Available fluconazole 200 mg tablet TAKE 1 TABLET BY MOUTH. REPEAT DOSE IN 4 DAYS IF SYMPTOMS ARE STILL PRESENT. 11/21 completed Not Available Not Available Not Available meloxicam 15 mg tablet Take 1 tablet every day by oral route for 30 days. 2023 active Not Available Not Available Not Avai lable prednisone 20 mg tablet TAKE 3 TABS ORALLY DAILY FOR 5 DAYS 11/21 completed Not Available Not Available Not Available metronidazo le 500 mg tablet TAKE 1 TABLET BY MOUTH EVERY 12 HOURS FOR 7 DAYS active Not Available Not Available No t Available lamotrigine 25 mg tablet TAKE 1 TABLET BY MOUTH EVERY DAY. 11/21 completed Not Available Not Available Not Available Celebrex 200 mg capsule Take 1 capsule every day by oral route in the morning for 30 days. 2023 active Not Available Not Available Not Avai lable lorazepam 0.5 mg tablet active Not Available Not Available Not Available estradiol 1 mg tablet TAKE 1 TABLET BY MOUTH EVERY DAY active Not Available Not Available No t Available progesteron e micronized 200 mg capsule Take one capsule by mouth at bedtime 11/21 completed Not Available Not Available Not Available fluoxetine 10 mg capsule PLEASE SEE ATTACHED FOR DETAILED DIRECTION S 11/21 completed Not Available Not Available Not Available estradiol 2 mg tablet Take 1 tablet by mouth daily 11/21 completed Not Available Not Available Not Available lorazepam 1 mg tablet TAKE 1 TABLET BY MOUTH DAILY AT BEDTIME NEEDED FOR SLEEP. 11/21 completed Not Available Not Available Not Available cefuroxime axetil 500 mg tablet TAKE 1 TABLET BY MOUTH TWICE DAILY FOR 7 DAYS. 11/21 completed Not Available Not Available Not Available estradiol 0.01% (0.1 mg/gram) vaginal cream PLACE 1 GRAM VAGINALLY 2 TIMES PER WEEK active Not Available Not Available No t Available albuterol sulfate HFA 90 mcg/actuati on aerosol inhaler INHALE 2 PUFFS EVERY 4 TO 6 HOURS NEEDED FOR SHORTNESS OF BREATH OR FOR WHEEZE active Not Available Not Available No t Available ondansetron 4 mg disintegrat ing tablet active Not Available Not Available N ot Available fluticasone propionate 50 mcg/actuati on nasal spray,suspe nsion active Not Available Not Available Not Available lamotrigine 100 mg tablet TAKE 1 TABLET BY MOUTH EVERY DAY. INS MAX SUPPLY OF 30 PER SCRIPT active Not Available Not Available No t Available estradiol 0.1 mg/24 hr weekly transdermal patch APPLY 1 PATCH ONCE A WEEK active Not Available Not Available No t Available naproxen 500 mg tablet active Not Available Not Available Not Available amoxicillin 875 mg-potassiu m clavulanate 125 mg tablet active Not Available Not Available Not Available Truvada 200 mg-300 mg tablet Take 1 tablet orally once a day active Not Available Not Available No t Available Sherry (28) 3 mg-0.02 mg tablet TAKE 1 TABLET BY MOUTH EVERY DAY TAKE CONTINUOU SLY 11/21 completed Not Available Not Available Not Available COVID-19 At-Home Test kit FOLLOW INSTRUCTI ONS INCLUDED WITH THE PACKAGE. 11/21 completed Not Available Not Available Not Available Vitals Date Recorded Body height Body mass index (BMI) Body weight Provider Name and Address Organization Details Last Updated DateTime 08/07/2024 162.56 cm 28.3 kg/m2 21221.74 g MICHELLE L'HEUREUX [facility] 08/07/2024 15:25:43 Date Recorded Body height Body mass index (BMI) Body weight Provider Name and Address Organization Details Last Updated DateTime 11/08/2023 162.56 cm 28.3 kg/m2 84934.74 g Yakelin Carvajal [facility] 11/08/2023 08:56:45 Date Recorded Body height Body mass index (BMI) Body weight Provider Name and Address Organization Details Last Updated DateTime 11/22/2023 162.56 cm 28.3 kg/m2 75484.74 g ROMMEL Magaña [facility] 11/22/2023 10:36:36 Social History Question Answer Notes LastModified by Organizat ion Details LastModified Time Tobacco Smoking Status Former Smoker ROMMEL zuñiga, [facility] 11/22/2023 10:39:49 When Did You Quit Smoking? 11-15yearssi ncelastciradha ette bobbymejijefry Information not available 11/22/2023 Which Of Your Hands Is Dominant? Right jholkaelamejia Information not available 11/22/2023 Sex: Unknown Functional Status Question Answer Note LastModified by Organizat ion Details LastModified Time Do you use any illicit or recreational drugs? No jholtessyinmejia Information not available 11/22/2023 Do you or have you ever used any other forms of tobacco or nicotine? No yanelyTibersoftesemejia Information not available 11/22/2023 What is your level of alcohol consumption? None oltessyinmejia Information not available 11/22/2023 Mental Status None recorded. Family History Nothing Reported. Medical History Condition Response Anxiety/Depression Y Asthma Y Sleep Apnea Y Gynecological HistoryNo gynecological history recorded. Obstetrics History GPAL:G 0 P 0 0 0 0 Past Encounters Encounter ID Performer Location Encounter Start Date Encounter Closed Date Diagnosis/Indication Diagnosis SNOMED-CT Code Diagnosis ICD10 Code Diagnosis IMO Codes Diagnosis Note [id number] STEPHANIE Blount [address] [place] [address] 11/08/2023 08:51:22 11/28/2023 11:00:00 Injury of elbow 885942017 S59.901A Right late ral elbow tendinopathy 1199952065 25742 M77.11 [id number] STEPHANIE Barahona [address] [place] [address] 11/22/2023 10:31:46 12/12/2023 13:00:38 Pain of right shoulder joint 8597284003 9618331 M25.511 Impingemen t syndrome of right shoulder region 5929197753 59284 M75.41 Neck pain 44717575 M54.2 [id number] STEPHANIE Kirkpatrick [address] [place] [address] 08/07/2024 15:12:34 08/23/2024 08:58:28 Neck pain 08219303 M54.2 Health Concerns Section Related Observation LastModified by Organization Detai ls LastModified Time None Recorded Concern Status LastModified by Organization Details LastModified Time None Recorded Advance Directives Directive None Recorded Payers Insurance Date Sequence Insurance Name Policy Number Policy Puri Covered Member ID Puri Member ID Guarantor Name 08/23/2024 1 [facility] Ayla Chavira Tayla [id number] Ayla Bourne 08/05/2024 1 [employer] (POS II) [id number] Ayla Bourne [id number] Ayla Bourne Notes Date Note Type Note Provider Name and Address Organization Details Recorded Time 11/08/2023 text/html I am seeing the patient today under the supervision of Dr. Malloy who was available but did not see the patient. 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 It really radiates down into her elbow. She states is worse with grasping and holding things. She denies previous injuries or surgeries to her elbow. Otherwise healthy on medication for bipolar disorder. Denies numbness and tingling. Denies tobacco use history.Past family, medical, social history and review of systems has been reviewed, updated and signed by me and is located in the patient's chart. Examination: The patient is well appearing and in no apparent distress. Alert and oriented x3. Gait is symmetric.right elbow exam: Skin is intact without signs of erythema edema or ecchymosis noted. Patients tender to palpation about the lateral epicondyle extending distally about 3 cm. Patient's full range of motion without crepitus. Stable varus and valgus stress testing. Patient has pain to resisted wrist extension. Patient has negative resisted wrist flexion/supination. Neurovascular intact distally. Strength 5/5. Full range of motion about the wrist and hand without discomfort. Capillary refills less than 3 seconds. Sensation to median, ulnar, radial nerve distributions intact and symmetric throughout.Peripheral , vascular, lymphatic examination, skin, neurological, coordination, reflexes, sensation are within normal limits.X-rays ordered, obtained and reviewed at [facility]: 3 views of the right elbow demonstrate no evidence of acute fracture or dislocation. No evidence of bony abnormality noted.Impression: 1. right elbow pain secondary to lateral epicondylitisPlan: I discussed my findings of the patient today. We discussed the pathophysiology of their condition. We discussed potential treatment options at this time to include conservative and more invasive measures. She has elected to proceed with patient will undergo conservative management of bracing, physical therapy, and an prescription for an anti-inflammatory. She is reminded to take this with food and to avoid other anti-inflammatories. She will follow-up in 6 weeks for reevaluation. If still having pain a cortisone injection may be warranted. I offered her a work note however she would like to hold off at this time. . She understands agrees with the treatment plan. All questions concerns were answered and addressed. She is encouraged to contact clinic in the meantime for any further questions or concerns Speech recognition bridal stylist sales consultant software was used to create portions of this document. An attempt at proofreading has been made to minimize errors. Please call for corrections.The patient is ambulatory, but has weakness and/or instability of their extremity which requires stabilization from this semi-rigid/rigid orthosis to improve their function.Verbal and written instructions for the use and application of this item were given. Patient was instructed that should the brace result in increased pain, decreased sensation, increased swelling or an overall worsening of their medical condition, to please contact our office immediately. Christie Toussaint PA-C [address], [place], [address], [facility] 11/08/2023 09:25:15 11/22/2023 text/html I am seeing the patient today under the supervision of Dr. Seay who was available but did not see the patient. HPI: 48-year-old duyqs-jhrr-thzlmcbd female patient presents today for right scapula pain and burning, denies injury. She reports this began 2-3 months ago. Patient reports diffuse pain throughout her body and believes she has fibromyalgia but has not followed up with her PCP. She currently has a tennis elbow brace and wrist splint on her right upper extremity. She notes the burning in her scapula is intermittent, worse when using her mouse at work. She does have neck pain, denies numbness/tingling down her right upper extremity. No treatment thus far. Denies previous shoulder surgeries. Past family, medical, social history and review of systems has been reviewed, updated and is located in the patient's chart. X-RAYS:4 view x-rays of the Right shoulder and 1v c-spine ordered, obtained and reviewed at [facility] today. AP view demonstrates well preserved glenohumeral joint space. Outlet view demonstrates type II acromion. Axillary view demonstrates humeral head centered within the joint space. C-spine demonstrates mild to moderate disc space narrowing C5-C7. IMPRESSION: Right shoulder impingement, cervicalgiaPLAN: Findings reviewed. We discussed conservative treatment as an appropriate initial option. Recommended a diagnostic and therapeutic right shoulder cortisone injection today, she elected to proceed. Recommended she keep track of what pain this does or does not relief for her. Physical therapy prescription provided focus on scapular stabilization, cervical stabilization, traction, trigger point release. Recommended follow-up with her PCP to discuss her widespread body pain. Follow-up as symptoms dictate. All of her concerns are addressed and she understands and agrees with this plan. Speech recognition bridal stylist sales consultant software was used to create portions of this document. An attempt at proofreading has been made to minimize errors. Please call for corrections. Ely Shay PA-C [address], [place], [address], [facility] 11/22/2023 12:18:02 08/07/2024 text/html I am seeing the patient today under the supervision of Dr. Lerma who was available but did not see the patient. CLINICAL UPDATE: 49-year-old afvas-fael-dsgsdned female patient presents today for right scapula and neck pain recheck. She does report some numbness/tingling down her right upper extremity. Last visit 11/22/23 received a diagnostic and therapeutic right shoulder cortisone injection that provided no relief. She was sent for physical therapy for her neck which she reports did slightly improve her pain. 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 HPI: Presented initially 11/22/23 for right scapula pain and burning. Denies injury. She reports this began 2-3 months ago. Patient reports diffuse pain throughout her body and believes she has fibromyalgia but has not followed up with her PCP. She currently has a tennis elbow brace and wrist splint on her right upper extremity. She notes the burning in her scapula is intermittent, worse when using her mouse at work. She does have neck pain, denies numbness/tingling down her right upper extremity. No treatment thus far. Denies previous shoulder surgeries. Past family, medical, social history and review of systems has been reviewed, updated and is located in the patient's chart. X-RAYS:Previous 4v x-rays of the Right shoulder and 1v c-spine reviewed at [facility] today. AP view demonstrates well preserved glenohumeral joint space. Outlet view demonstrates type II acromion. Axillary view demonstrates humeral head centered within the joint space. C-spine demonstrates mild to moderate disc space narrowing C5-C7. IMPRESSION: Right sided cervicalgia, myofascial pain PLAN: Findings reviewed. Patient attempted a diagnostic and therapeutic right shoulder cortisone injection that provided no relief. She completed physical therapy with a focus on her cervical spine which did improve her pain. Continues to note pain right side of her neck and medial scapular border with numbness/tingling occasionally to her hand. Recommended referral to [facility] for conservative treatment discussion for possible cervical or trigger point injections. All of her concerns are addressed and she understands and agrees with this plan. Speech recognition bridal stylist sales consultant software was used to create portions of this document. An attempt at proofreading has been made to minimize errors. Please call for corrections. Ely Daigle PA-C [address], [place], [address], [facility] 08/07/2024 16:44:42 OBGyn Episode No OBEpisode recorded.
--- OUTSIDE RECORDS SUMMARY | 2025-04-09 16:26 | XMS_ITS | Patient Health Record ---
Author Organization [facility] Address [address] [place] [address] Care Team Providers Care Head Of Sales Promotion Name Role Phone Jesus (RETIRED) Elías BURGER Primary Care Provide r Unavailable Flynn Lopez Unavailable [phone] Reason For Referral No Information Plan Of Treatment No Information Insurance Providers Payer Name Payer Address Payer Phone Subscriber Number Group Number Insured Name Patient Relationship to Insured Coverage Start Date Coverage End Date [employer] [address] [place] [facility] [place] [address] [id number] MARCOS VU Self - patient is the insured
--- OUTSIDE RECORDS SUMMARY | 2025-04-09 16:26 | XMS_ITS | Encounter Summary ---
Author Organization [facility] Address [address] [facility] [address] [place] [phone] Phone Care Team Providers Care Slope Runner Name Role Phone Kye Queen MD Primary Care Provider + [phone] Kye Queen MD Unavailable [phone] Elías Lee MD Primary Care Provider Elías Lee MD Primary Care Provider Reason for Referral * MRI/CAT Scan - Closed Specialty Diagnoses / Procedures Referred By Contac t Referred To Contact Procedures MRI Abdomen Outside (No Interpretation) System, Provider Not In, PhD [facility] [address] [place] [id number] Referral ID Status Reason Start Date Expiration Date Visits Re quested Visits Authorized [id number] Closed 12/19/2017 12/19/2018 1 1 Encounter Details Date Type Department Care Team (Late st Contact Info) Description 12/19/2017 Ancillary Orders [facility],Outside Imaging [address] [place] [address] System, Provider Not In, PhD [place] [address] Social History Tobacco Use Types Packs/Day Years Used Date Smoking Tobacco: Former Cigarettes 1 15 0 12/14/1995 - 12/13/2010 Smokeless Tobacco: Never Alcohol Use Standard Drinks/Week Comments No 0 (1 standard drink = 0.6 oz pur e alcohol) Comments No Sex and Gender Information Value Date Recorded Sex Assigned at Female 03/06/2024 6:19 PM EDT Legal Sex Female 9:28 PM EDT Gender Identity Female 03/06/2024 6:19 PM EDT Sexual Orientation Straight 03/06/2024 6: 19 PM EDT documented as of this encounter Plan of Treatment Upcoming Encounters Date Type Department Care Team (Late st Contact Info) Description 02/10/2025 11:59 PM EDT Anesthesia Event [facility] Admitting [facility] Virtual Department [address] [place] [address] Clark Cummings MD [address] [place] [address] 04/14/2025 Hospital Encounter [facility] Virtual Department [address] [place] [address] Dejan Moreno MD [address] [place] [address] 04/14/2025 Procedure Pass [facility] Admitting [facility] Virtual Department [address] [place] [address] 09/23/2025 2:00 PM EDT Office Visit [facility] Rheumatology [address] [place] [address] Laura Landis MD [address] [place] [address], [address] [place] [address] Scheduled Procedures Name Priority Associated Diagnoses Date/Ti me COLONOSCOPY Special screening for malignant neoplasms, colon documented as of this encounter Results * MRI Abdomen Outside (No Interpretation) (10/04/2016 12:00 AM EDT) Narrative SYSTEMGENERATED, DOCUMENTATION - 12/19/2017 9:48 AM EDT This study is for PACS storage only and not for interpretation. us Provider Not In System PhD IMG OUTSIDE IMAGING W /OUT INTERPRETATION Final Result documented in this encounter Visit Diagnoses Not on filedocumented in this encounter Additional Health Concerns Infection Onset Date Last Indicated Resolved Time CoV-Risk 01/20/2020 01/22/2020 02/03/2020 1:24 AM EDT CoV-Risk 04/09/2020 04/09/2020 04/23/2020 1:24 AM EST CoV-Risk 05/27/2020 06/02/2020 06/12/2020 1:23 AM EST CoV-Risk 06/12/2020 06/13/2020 06/22/2020 1:25 AM EST CoV-Risk 03/06/2024 03/06/2024 03/17/2024 1:22 AM EDT Assessment Noted Time PHQ-2 Depression Total Score: 2 10/14/19 18 5:07 PM EDT documented as of this encounter Care Teams Slope Runner Relationship Specialty Start Date End Date Kye Queen MD [address] [place] [phone] [email or web address] PCP - General Internal Medicine 09/11/17 07/13/23 Elías Lee MD [address] [place] [address] [address] PCP - General Internal Medicine 07/14/23 06/09/24 Elías Lee MD [address] [place] [address] [address] PCP - General Internal Medicine 06/10/24 Kye Queen MD [address] [place] [phone] [email or web address] Insurance Assigned Provider 09/15/18 06/20/20 documented as of this encounter Additional Source Comments The information contained in this document represents components of the legal health record. It is not the complete legal health record.[facility]
--- OUTSIDE RECORDS SUMMARY | 2025-04-09 16:26 | XMS_ITS | Data Portability ---
Author Organization [place] - [facility], Allergy Address [address] [address] Care Team Providers Care Stevedoring Supervisor Name Role Phone ERIC FLORES Primary Care Provider Assessment Encounter Date Assessment Date Assessment LastModified by Organization Details LastModified Time 04/09/2024 04/09/2024 48 year old female presents for evaluation of recurrent sore throat. This most recent sore throat did resolve on its own. Examination shows scarring and thickening of the right tympanic membrane with some retraction. The left ear has no fluid. The nose is mildly congested. Her tonsils are enlarged. We discussed that her recurrent symptoms may be secondary to allergy or viral illness. I have offered to order allergy testing and she would like to proceed with this. I have recommended that she use an oral antihistamine daily as well as Flonase 2 sprays each nostril daily. When she returns for follow up of her allergy testing we should arrange for audiogram given her history of right ear paraganglioma and stereotactic radiosurgery. Not available 04/09/2024 11:51:14 07/01/2024 07/01/2024 Allergy testing was reviewed with the patient and she was issued a copy for her records. We discussed that she would benefit from immunotherapy. She does not currently think she can commit the time to allergy shots and does not want to pay out of pocket for drops. She will continue with oral anthistamine and Flonase which I have prescribed today. Fairly stable hearing bilaterally compared to 2019. She has a history of right ear paraganglioma and stereotactic radiosurgery and will follow up with Dr. Carrillo. Not available 07/01/2024 16:38:12 Plan of Treatment Reminders Order Date Submit Date Provider Last Modified By Organization Details Last Modified Time Details Appointments None recorded. Lab None recorded. Referral None recorded. Procedures allergy testing, skin prick (PROC) 2023 024 [email or web address] Not available 09:21:55 intradermal allergy skin testing (PROC) 2023 024 [facility] Not available 09:21:55 pulmonary function test procedure (PROC) 2023 024 [facility] Not available 4 09:21:56 pulse oximetry (PROC) 2023 [email or web address] Not available 09:21:56 Surgeries None recorded. Imaging None recorded. Medication Orders Flonase Allergy Relief 50 mcg/actuati on nasal spray,suspe nsion 2024 025 [facility] #[id number], [address] [facility] [place], [address], 14:22:32 Patient TargetsNo targets recorded. Patient Instructions Encounter Date Encounter Id Patient Instructions Last Modified By Organization Details Last Modified Time 05/07/2024 [id number] Nursing Documentation for Allergy Testing: Ordering Provider Dr. Khan Weight:155lbs: kg: PFT Yes With Bronchodilator no approval needed to proceed with allergy testing? Yes Dr. Pan ok'd testing YesHistory of Asthma:Yes Asthma Meds:albuterol Last used: months ago Asthma exacerbated by: Chance that : No Fear of needles: Yes Regular medications reviewed in Computer: Yes Medication allergies: Reviewed Antihistamine use: No Medications used: Food Allergies:no Any foods make your mouth feeling itchy: No If yes: History of severe reaction where had to go to ER? 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 Symptoms having: Post Nasal Drip If other: Frequency Year Round Spirometry Contraindications: Heart attack in the last 3 months: No Major surgery in last 3 months: No Detached retina(serious eye issues) in last 2 months: No Hospitilization in last month: No Proceed with PFT Yes approval needed: No Nursing Notes: Pt tolerated test well Yes Benadryl cream to test sites Yes Patient became syncopal-placed in supine position No Large reactions to MQT, reschedule IDT for a different date No Other: Written by: JAMSHID Yost Not available 05/07/2024 14:18:40 Reason for Referral None Reported. Results Created Date Observation Date Name Description Value Unit Range Abnormal Flag Note LastModifiedBy Organization Detail LastModifiedTime 05/07/20 24 king metry testi ng* No observ ation record ed. [email or web address] Not Available 19:58:11 07/02/19 25 audio gram No observ ation record ed. BARCODE Not Available 2024 10:20:26 Result Notes None recorded. 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, nasal cavity and accessor y sinuses; Note: Date Diagnose d: 03/26/20 18 5:16 PM (D14.0) Not Available [facility] 4 02:58:13 Conducti ve hearing loss 21596846 Active 2017 Conducti ve hearing loss, unilater al, right ear, with unrestri cted hearing on the contrala teral side; Note: Date Diagnose d: 03/26/20 18 3:46 PM (H90.11) Not Available [facility] 4 02:58:11 Tinnitus of right ear 31451885724 08 Completed 201701/12/2024 Tinnitus , right ear; Note: Date Diagnose d: 03/26/20 18 3:46 PM (H93.11) Not Available [facility] 4 02:58:12 Benign neoplasm of paragang lion 44024722 Active 2017 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 nahun; Note: Date Diagnose d: 05/02/20 18 10:21 AM (D35.6) Not Available [facility] 4 02:58:12 Tinnitus of vascular origin 000886860 Completed 201701/12/2024 Pulsatil e tinnitus , right ear; Note: Date Diagnose d: 05/02/20 18 10:11 AM (H93.A1) Not Available [facility] 4 02:58:14 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; Note: Date Diagnose d: 9 2:32 PM (750.26) Not Available [facility] 4 02:58:12 Stomatit is 03664002 Completed 201801/12/2024 Other oral mucositi s (ulcerat norma); Note: Date Diagnose d: 9 3:51 PM (K12.39) Not Available [facility] 4 02:58:14 Dizzines s and giddines s 372164642 Active 2018 Dizzines s and giddines s; Note: Date Diagnose d: 9 4:24 PM (R42) Not Available [facility] 4 02:58:13 Fatigue 09084480 Active 2018 Fatigue NOS; Note: Date Diagnose d: 9 4:15 PM (R53.83) Not Available [facility] 4 02:58:14 Chronic tonsilli tis 92523753 Active 2020 Chronic tonsilli tis; Note: Date Diagnose d: 1 10:35 AM (J35.01) Not Available [facility] 4 02:58:13 Allergic rhinitis 15405308 Active 2023 Other allergic rhinitis ; Note: Date Diagnose d: 10/13/2023 12:06 PM (J30.89) Not Available [facility] 4 02:58:13 Non-jennifer rgic rhinitis 93948729862 1 Active 2023 Maria Guadalupe Byrd null, [place] - [facility] 4 11:33:20 Seasonal allergic rhinitis 276577763 Active 2023 Maria Guadalupe zuñiga, [place] - [facility] 4 11:33:20 Chronic sore throat 571550957 Active 2023 Maria Guadalupe zuñiga, [place] - [facility] 4 11:52:25 Chronic pharyngi tis 447513 Active 2023 MONSERRAT GRANADOS MD [address] [facility],[place] [address], [place], [address] , [facility] - [facility] 4 11:57:03 Sensorin eural hearing loss in right ear 84439205635 100 Active 2024 Jennifer zuñiga [place] - [facility] 5 14:13:32 Problem Notes None recorded. Procedures Surgical History Date Name Laterality Status Provider Name and Address Organization Details Recorded Time 5 Comp Audio with Tymps - 05400 & 92848 completed Jennifer Coello [facility] 07/01/2024 14:13:02 4 Allergy Testing-Full completed [place] [address], [place], [address], [facility] 05/07/2024 14:46:48 Imaging Results None recorded. Procedure Notes None recorded. Medical Equipment None Reported. Allergies Allergen ID Allergen Name Allergen Category Reaction Reaction Severity Criticality Documentation Date Start Date Code Code System Note Provider Name and Address Organization Details Recorded Time 441039 Substance with sulfonami de structure and antibacte rial mechanism of action (substanc e) medicatio n other Not available Not available 10/24/2023 05874 8003 SNOMED React ion: unkno wn, unspe cifie d;; Not Available [facility] 4 01:12:07 243909 Iodinated contrast media (substanc e) medicatio n other Not available Not available 10/24/2023 53980 2003 SNOMED React ion: unkno wn, unspe cifie d;; SAMARA MOREL, [facility] [address] [facility], [place], [address], [place] - [facility] 4 13:19:52 Medications Name Sig Start Date Stop Date Status Note LastModified by Organization Details LastModified Time celecoxib 200 mg capsule TAKE 1 CAPSULE BY MOUTH ONCE DAILY 05/07 completed Not Available Not Available Not Available amoxicill in 500 mg capsule TAKE 1 CAPSULE BY MOUTH TWICE DAILY FOR 10 DAYS. 07/01 completed Not Available Not Available Not Available clindamyc in HCl 300 mg capsule 07/26 completed Medicati on ID: [id number] D uration Value: 10 Reason: () Brand Name: clindamy darion HCl Send Method: E-Prescr ibed Sub s Allowed: subs OK Medic ationGen ericName : clindamy darion HCl Not Available Not Available Not Available Lidocaine Viscous 2 % mucosal solution TAKE 5 ML EVERY 4 TO 6 HOURS (PAIN) FOR 5 DAYS YOU MAY SWISH FOR 30 SECONDS AND SWALLOW OR SPIT 05/07 completed Not Available Not Available Not Available fluconazo le 150 mg tablet active Not Available Not Available Not Available hydrocodo ne 5 mg-acetam inophen 325 mg tablet 10/24 completed Medicati on ID: [id number] D uration Value: 1 Reason: () Brand Name: hydrocod one-acet aminophe n Send Method: E-Prescr ibed Sub s Allowed: subs OK Medic ationGen ericName : hydrocod one-acet aminophe n Not Available Not Available Not Available fluconazo le 200 mg tablet TAKE 1 TABLET BY MOUTH. REPEAT DOSE IN 4 DAYS IF SYMPTOMS ARE STILL PRESENT. 05/07 completed Not Available Not Available Not Available meloxicam 15 mg tablet TAKE 1 TABLET BY MOUTH EVERY DAY 05/07 completed Not Available Not Available Not Available prednison e 20 mg tablet 05/07 completed Medicati on ID: [id number] B rand Name: predniso ne Send Method: E-Prescr ibed Sub s Allowed: subs OK Medic ationGen ericName : predniso ne Not Available Not Available Not Available topiramat e 25 mg tablet 05/07 completed Medicati on ID: [id number] B rand Name: topirama te Send Method: E-Prescr ibed Sub s Allowed: subs OK Medic ationGen ericName : topirama te Not Available Not Available Not Available metronida zole 500 mg tablet TAKE 1 TABLET BY MOUTH EVERY 12 HOURS FOR 7 DAYS active Not Available Not Available No t Available Ciloxan 0.3 % eye drops 05/07 completed Medicati on ID: [id number] D uration Value: 10 Prescri bed By Name: STEPHANIE Nazario nd Name: Ciloxan Send Method: E-Prescr ibed Sub s Allowed: subs OK Speci al Instruct ion: Instill 4 drops twice a day into affected ear for 10 days Med icationG enericNa me: Ciloxan Not Available Not Available Not Available lamotrigi ne 25 mg tablet TAKE 1 TABLET BY MOUTH EVERY DAY. 05/07 completed Not Available Not Available Not Available ofloxacin 0.3 % ear drops 5 drop 05/07 completed Medicati on ID: [id number] D uration Value: 7 Prescri bed By Name: Janes Harman nd Name: ofloxaci n Send Method: E-Prescr ibed Sub s Allowed: subs OK Speci al Instruct ion: use for 10 days Med icationG enericNa me: ofloxaci n Not Available Not Available Not Available lorazepam 0.5 mg tablet 05/07 completed Not Available Not Available Not Available estradiol 1 mg tablet active Not Available Not Available Not Available cefuroxim e axetil 500 mg tablet TAKE 1 TABLET BY MOUTH TWICE DAILY FOR 7 DAYS. 05/07 completed Not Available Not Available Not Available estradiol 0.01% (0.1 mg/gram) vaginal cream active Not Available Not Available Not Available albuterol sulfate HFA 90 mcg/actua tion aerosol inhaler INHALE 2 PUFFS EVERY 4 TO 6 HOURS NEEDED FOR SHORTNES S OF BREATH OR FOR WHEEZE active Not Available Not Available No t Available ondansetr on 4 mg disintegr ating tablet 05/07 completed Not Available Not Available Not Available fluticaso ne propionat e 50 mcg/actua tion nasal spray,[employer] 2 sprays every day by intranas al route. active Not Available Not Available No t Available lamotrigi ne 100 mg tablet 05/07 completed Medicati on ID: [id number] B rand Name: lamotrig ine Send Method: E-Prescr ibed Sub s Allowed: subs OK Medic ationGen ericName : lamotrig ine Not Available Not Available Not Available estradiol 0.1 mg/24 hr weekly transderm al patch APPLY 1 PATCH TOPICALL Y ONCE A WEEK active Not Available Not Available No t Available risperido ne 0.5 mg tablet 05/07 completed Medicati on ID: [id number] B rand Name: risperid one Send Method: E-Prescr ibed Sub s Allowed: subs OK Medic ationGen ericName : risperid one Not Available Not Available Not Available naproxen 500 mg tablet 05/07 completed Not Available Not Available Not Available amoxicill in 875 mg-potass ium clavulana te 125 mg tablet 05/07 completed Not Available Not Available Not Available Truvada 200 mg-300 mg tablet Take 1 tablet orally once a day active Not Available Not Available No t Available spironola ctone active Not Available Not Available Not Available Sherry (28) 3 mg-0.02 mg tablet 05/07 completed Medicati on ID: [id number] B rand Name: Sherry (28) Sen d Method: E-Prescr ibed Sub s Allowed: subs OK Medic ationGen ericName : Sherry (28) Not Available Not Available Not Available COVID-19 At-Home Test kit FOLLOW INSTRUCT IONS INCLUDED WITH THE PACKAGE. 05/07 completed Not Available Not Available Not Available Vitals Date Recorded Body height Body weight Provider Name and Address Organization Details Last Updated DateTime 07/01/2024 162.56 cm 76622.82 g Lizabeth Hamilton [place] - [facility] 07/01/2024 13:13:49 Date Recorded Body height Body mass index (BMI) Body weight Provider Name and Address Organization Details Last Updated DateTime 04/09/2024 162.56 cm 26.3 kg/m2 70836.63 g Lali Hatch [place] - [facility] 04/09/2024 11:19:40 Date Recorded Body height Body mass index (BMI) Body weight Heart rate Oxygen saturation Oxygen saturation in Arterial blood by Pulse oximetry Systolic And Diastolic Provider Name and Address Organization Details Last Updated DateTime 162.56 cm 26.6 kg/m2 70630.8 2 g 86 /min 97 % 97 % 120/72 mm[Hg] SAMARA TORRES, [facility] [address] [facility], [place], [address], [place] - [facility] 13:19:09 Social History Question Answer Notes LastModified by Organizat ion Details LastModified Time Tobacco Smoking Status Former Smoker SAMARA MOREL, [facility] [address] [facility] [address], [place], [address], [facility] - [facility] 05/07/2024 13:23:35 When Did You Quit Smoking? 11-15yearssi ncelastcigar ette skorze Information not available 05/07/2024 How Much Tobacco Do You Smoke? 1 PPD Information not available 05/07/2024 How Many Years Have You Smoked Tobacco? 12 Information not available 05/07/2024 Sex: Unknown Functional Status None recorded. Mental Status None recorded. Family History Nothing Reported. Medical History No medical history recorded. Gynecological HistoryNo gynecological history recorded. Obstetrics History GPAL:G 0 P 0 0 0 0 Past Encounters Encounter ID Performer Location Encounter Start Date Encounter Closed Date Diagnosis/Indication Diagnosis SNOMED-CT Code Diagnosis ICD10 Code Diagnosis IMO Codes Diagnosis Note [id number] MARIA GUADALUPE BYRD PA-C [facility] [address] [phone] 04/09/2024 10:58:12 04/09/2024 11:38:39 Allergic rhinitis 39804808 J30.89 Chronic pharyngitis 1400 04 J31.2 [id number] SAMARA TORRES [facility] Allergy [address] [facility],[place] [address] [place] [phone] 05/07/2024 12:58:32 05/07/2024 14:47:44 Allergic rhinitis 20712998 J30.89 [id number] MARIA GUADALUPE BYRD PA-C [facility] [address] [place] [address] 07/01/2024 13:07:56 07/01/2024 14:29:22 Sensorineural hearing loss in right ear 1643773438 9100 H90.41 Audiologic al evaluation results: Right ear: Normal through 4 kHz sloping to a mild sensorineu ral hearing loss with excellent word recognitio n. Left ear: Normal hearing with excellent word recognitio n. Tympanomet ry: Right Ear:Type As Left Ear:Type C Allergic rhinitis 328570 04 J30.9 History of neoplasm 2759 25323 Z85.9 Health Concerns Section Related Observation LastModified by Organization Detai ls LastModified Time None Recorded Concern Status LastModified by Organization Details LastModified Time None Recorded Advance Directives Directive None Recorded Payers Insurance Date Sequence Insurance Name Policy Number Policy Puri Covered Member ID Puri Member ID Guarantor Name 09/24/2024 1 [employer] - DOS ON OR AFTER 2022 - [employer] (MEDICAID REPLACEMENT - HMO) Ayla Bourne [id number] Ayla Bourne 04/02/2024 1 *SELF PAY* Danae Bourne 04/23/2024 1 [place] [facility] Ayla Bourne [id number] Ayla Bourne Notes Date Note Type Note Provider Name and Address Organization Details Recorded Time 04/09/2024 text/html ROS as noted in the [facility] 48 year old female presents for evaluation of recurrent sore throat. Her most recent was about one week ago. She felt run down. She gargled salt water. The sore throat resolved on its own. She has had persistent dry cough. She reports that when she gets sore throats they are often negative for strep but do improve with antibiotics. She was evaluated in October by Dr. Khan for this same issue. She has inconsistently used oral antihistamine and Flonase since that time. She has a history of right ear paraganglioma and stereotactic radiosurgery. MONSERRAT KHAN MD [address] [place] [address], [phone], [facility] - [facility] 04/09/2024 11:57:39 07/01/2024 text/html ROS as noted in the [facility] 48 year old female presents for audiometric testing and to review her allergy testing. She has a history of recurrent sore throats. She has a history of right ear paraganglioma and stereotactic radiosurgery. MONSERRAT KHAN MD [address] [place] [address], [place], [address], [facility] - [facility] 07/01/2024 16:46:15 OBGyn Episode No OBEpisode recorded.
--- OUTSIDE RECORDS SUMMARY | 2025-04-09 16:26 | XMS_ITS | Clinical Summary ---
Author Organization [facility] Address [address] [facility] [address] [place] [address] Phone Care Team Providers Care Basket Operator Name Role Phone Elías Lee MD Primary Care Provider Allergies Active Allergy Reactions Criticality Noted Date Comments Sulfa (Sulfonamide Antibiotics) Swelling 10/13/2017 Other Reaction(s): other Medications dicyclomine (BENTYL) 10 MG capsule Take 1-2 capsules (10-20 mg total) by mouth 4 (four) times a day before meals and nightly. 240 capsule 3 04/12/20 18 Active Additional Information Patient taking differently:10-20 mg Oral 4 times daily before meals and nightly,As needed, Reported on 03/28/2025 albuterol 90 mcg/actuation inhaler TAKE 2 PUFFS BY MOUTH EVERY 6 HOURS NEEDED FOR WHEEZE 8.5 Inhaler 5 09/03/19 20 Active loratadine (CLARITIN) 10 mg tablet Take 10 mg by mouth daily. Active prasterone, dhea, (DHEA) 25 mg Cap 02/11/20 23 Active therapeutic multivitamin tablet Take 1 tablet by mouth daily. Active meloxicam (MOBIC) 15 MG tablet Take 15 mg by mouth every morning. 09/12/19 24 Active estradioL (ESTRACE) 2 MG tabletIndication s:Perimenopause Take one tablet by mouth daily. 90 tablet 2 08/07/19 25 Active estradioL (VAGIFEM) 10 mcg TabIndications:P CB (post coital bleeding) Place 1 tablet (10 mcg total) vaginally 2 (two) times a week. 24 tablet 3 09/06/19 25 Active amoxicillin-clav ulanate (AUGMENTIN) 875-125 mg per tablet Take 1 tablet by mouth 2 (two) times a day. for 10 days Active pregabalin (LYRICA) 75 MG capsule Take 1 capsule by mouth 2 (two) times a day. 02/25/20 25 Active Medication-Free Text Advanced Joint support Active MAGNESIUM CITRATE ORAL Take 1,200 mg by mouth. Active Medication-Free Text Slippery box for drynes Active calcium/D3/zinc/ copper/brittany (CITRACAL-D3 MAXIMUM PLUS ORAL) Take 2 capsules by mouth 2 (two) times a day (once in the morning and once in the afternoon). Active Medication-Free Text Ashwaganda, VIMAL, Fenugreek Active Medication-Free Text Roverto 1600mg Active Medication-Free Text Menopause gummy vitamin Ashwaganda, Black cohosh,Chaste rodriguez Active Medication-Free Text Other Body Deoderant oral Active Medication-Free Text Collagenic Burn Acti ve lamoTRIgine (LAMICTAL) 100 MG tablet Take 100 mg by mouth daily. Discontin ued(No longer taking) glucosamine/david dr edis wan (GLUCOSAMINE-CHO NDROITIN) 1,500-1,200 mg/30 mL Liqd 12/11/19 Discontin ued(No longer taking) cefuroxime (CEFTIN) 500 MG tablet Take 500 mg by mouth daily. 09/24/19 24 Discontin ued(No longer taking) LIDOCAINE 2 % solution TAKE 5 ML EVERY 4 TO 6 HOURS (PAIN) FOR 5 DAYS YOU MAY SWISH FOR 30 SECONDS AND SWALLOW OR SPIT 09/24/19 24 Discontin ued(No longer taking) estradioL (ESTRACE) 0.01 % (0.1 mg/gram) vaginal creamIndications :Vaginal discharge Place 1 g vaginally 2 (two) times a week. 42.5 g 1 05/06/20 24 Discontin ued(No longer taking) fluconazole (DIFLUCAN) 150 MG tabletIndication s:Yeast infection Take one dose now and repeat in 3 days 2 tablet 1 05/15/20 24 Discontin ued(No longer taking) Hospital, Clinic, or Other Facility Administered Medication Ordered Dose Route Frequency Start Date End Date Status levonorgestreL (MIRENA) 21 mcg/24 hours (8 yrs) 52 mg intrauterine device 1 eachIndications:Encounter for insertion of intrauterine contraceptive device 1 each Utrn Every 7 years 03/29/2023 A ctive Active Problems Problem Noted Date Diagnosed Date Atrophic vaginitis 05/11/2023 Overview (05/11/2023): Using Estring w good effect Perimenopause 05/11/2023 Overview (05/11/2023): Joint pain, sleep issues, GSM, & hot flashes. Taking vaginal estrogen and systemic estrogen to relieve. Has Mirena in place. 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 I do not see any evidence of atherosclerosis and I think the velocity was falsely marked as elevated. The reading was based on the falsely elevated velocity. I do not see any evidence of carotid artery stenosis. I have reassured the patient I do not think any further workup is needed at this time. Pulsatile tinnitus of right ear 10/13/2017 10/11/2023 Otalgia of right ear 10/13/2017 024 Encounters Date Type Department Care Team Description 03/28/2025 10:00 AM EDT Office Visit [facility] Rheumatology [address] [place] [address] Laura Landis MD Positive PATRIZIA (antinuclear antibody) (Primary Dx); Sicca syndrome; Fibromyalgia from Last 3 Months Immunizations Immunization Administration Dates Next Due COVID-19 (Pre-04/03) Pfizer Vaccine, mRNA, PF ,09/11/2020 Hepatitis B, unspecified formulation 09/07/2016 Influenza Quadrivalent MDCK Preservative Free IM 04/21/2022 Influenza Quadrivalent Preservative Free IM 01/2021,03/12/2020 MMR 09/07/2016 Family History Medical History Relation Comments Asthma Brother 1 Testicular cancer Brother 1 No Known Problems Brother 2 Alcohol abuse Father smoker Depression Father Gout Father hepatitis c Father history of blood transfusion Breast cancer Maternal Aunt 1 Stroke Maternal Aunt 2 Hyperlipidemia Mother Hypertension Mother Depression Paternal Aunt Suicide Paternal Aunt Stroke Paternal Grandmother Asthma Sister 1 Relation Status Comments Brother 1 Alive Brother 2 Alive Father (Age 59) cirrhosis Maternal Aunt 1 Maternal Aunt 2 Mother Alive Paternal Aunt Paternal Grandmother Sister 1 Alive Sister 2 (Age 1 day) premature Social History Tobacco Use Types Packs/Day Years Used Date Smoking Tobacco: Former Cigarettes 1 15.5 0 06/12/1995 - 12/13/2010 Smokeless Tobacco: Never Tobacco Cessation:Counseling Given: Not Answered Alcohol Use Standard Drinks/Week Comments Yes 0 (1 standard drink = 0.6 oz pur e alcohol) 15 drinks monthly Child or Family Care Answer Date Record ed Do you have problems with on e of the following making it difficult for you to work, study, or receive health care? No 03/19/2021 Education Answer Date Recorded Are you interested in more education? Not on amauri e 03/20/2023 Are you concerned about learning? Not on file 03/20/2023 No 03/20/2023 No 03/20/2023 Food Answer Date Recorded Within the past 6 months we worried whether our food would run out before we got money to buy more. Sometimes True 10/08/2 021 Within the past 6 months the food we bought just didn't last and we didn't have enough money to get more. Sometimes True 01/2021 Residential Stability Answer Date Recor ded What is your housing situation today? I have lay [place] 03/19/2021 How many times have you moved in the past 12 mon ths? One time 03/19/2021 Paying for Meds Answer Date Recorded Do you have trouble paying for medicines? No 03/19/2021 Paying Utility Bills Answer Date Record ed Do you have trouble paying y our heating or electricity bill? I choose not to answer 03/19/2021 Transportation Answer Date Recorded Has the lack of transportati on kept you from medical appointments or from getting medications? No 03/19/2021 Unemployment Answer Date Recorded Are you currently unemployed or working on a part-time or temporary basis, and looking for work? No 03/19/2021 Digital Access Answer Date Recorded No 11/07/2022 No 11/07/2022 Reliable internet access at home? Not on file 11/07/2022 Device with a working camera? Not on file Intimate Partner Violence Answer Date R ecorded Are you denied basic needs s uch as food, clothing, or medical care? No 11/13/2024 In the past 12 months have y ou been in a relationship with a person who hurts, threatens, or tries to control you? No 11/13/2024 Are you denied basic needs s uch as food, clothing, or medical care? No 11/13/2024 In the past 12 months have y ou been in a relationship with a person who hurts, threatens, or tries to control you? No 11/13/2024 Comments No Sex and Gender Information Value Date Recorded Sex Assigned at Female 03/06/2024 6:19 PM EDT Legal Sex Female 9:28 PM EDT Gender Identity Female 03/06/2024 6:19 PM EDT Sexual Orientation Straight 03/06/2024 6: 19 PM EDT Last Filed Vital Signs Vital Sign Reading Time Taken Comments Blood Pressure 110/78 03/28/2025 10:01 AM EDT Pulse 80 03/28/2025 10:01 AM EDT Temperature 36 C (96.8 F) 03/06/2024 11:21 PM EDT Respiratory Rate 16 03/06/2024 11:21 PM EDT Oxygen Saturation 98% 03/28/2025 10:01 AM EDT Inhaled Oxygen Concentration - - Weight 73.3 kg (161 lb 9.6 oz) 03/28/2025 10:01 AM EDT Height 162.6 cm (5' 4 ) 03/28/2025 10:01 AM EDT Body Mass Index 27.74 03/28/2025 10:01 AM EDT Plan of Treatment Upcoming Encounters Date Type Department Care Team (Late st Contact Info) Description 02/10/2025 11:59 PM EDT Anesthesia Event [facility] Admitting Dept Virtual Department [address] [place] [address] Clark Cummings MD [address] [place] [address] 04/14/2025 Hospital Encounter [facility] Ad[facility] Virtual Department [address] [place] [address] Dejan Moreno MD [address] [place] [address] 04/14/2025 Procedure Pass [facility] Endoscopy Admitting Dept Virtual Department [address] [place] [address] 09/23/2025 2:00 PM EDT Office Visit [facility] Rheumatology [address] [place] [address] Laura Landis MD [address] [place] [address], [address] [place] [address] Scheduled Procedures Name Priority Associated Diagnoses Date/Ti me COLONOSCOPY Special screening for malignant neoplasms, colon Health Maintenance Due Date Last Done Comments HEPATITIS C SCREENING 1993 PNEUMOCOCCAL VACCINES (0-49 years) (1 of 2 - PCV) 1994 COLOGUARD 2020 COLONOSCOPY 2020 COLORECTAL CANCER SCREENING 2020 FIT TEST 2020 FOBT 2020 SIGMOIDOSCOPY 2020 VIRTUAL COLONOSCOPY 2020 DEPRESSION SCREENING 03/19/2022 03/19/2021 SCREENING FOR DIABETES 01/24/2023 01/25/2020 LIPID PANEL 02/21/2023 02/21/2018, 02/21/2018 HEPATITIS A VACCINES (2 of 3 - Hep A Twinrix risk 3-dose series) 06/05/2024 05/08/2024 INFLUENZA VACCINE (#1) 2025 , 03/19/2021, 03/12/2020 COVID-19 VACCINE ( season) 2025 04/21/2022, 06/15/2021, 10/17/2020, Additional history exists PAP SMEAR 03/09/2026 03/09/2023, 10/12, 11/08/2017 MAMMOGRAM 12/31/2026 12/31/2024, 12/11, 09/03/2021, Additional history exists SMOKING STATUS SCREENING (Every 5 Years) 03/28/2030 03/28/2025 IUD 03/29/2031 03/29/2023 Adult Td,Tdap Booster 01/07/2035 01/07/2025, 023 HIV ONE-TIME SCREENING (18-65 YEARS) Completed 06/12/2014 HIB VACCINES Aged Out No longer eligi ble based on patient's age to complete this topic MENINGOCOCCAL VACCINES (ACWY) Aged Out No longer eligible based on patient's age to complete this topic MENINGOCOCCAL VACCINES (B) Aged Out N o longer eligible based on patient's age to complete this topic Medical Devices Implanted Type Area Shorts Sifter Device Identifier Shelf Expiration Date Model / Serial / Lot Iud Implanted:11/2022 (Quantity not on file) Intrauterine Device Iud Implanted: (Quantity not on file) Intrauterine Device Procedures Procedure Name Priority Date/Time Associated Diagnosis Comments PAP TEST Routine 03/09/2023 12:00 AM EDT BI MAMMOGRAM SCREENING WITH TOMOSYNTHESIS WITH CAD (BILATERAL) Routine 09/03/2021 4:02 PM EDT Breast cancer screening by mammogram LIPID PANEL Routine 02/21/2018 1:23 PM EDT Stenosis of right carotid artery OUTSIDE HIV Routine 06/12/2014 from Last 3 Months or Most Recently Relevant to Health Maintenance Results * Pap Test (03/09/2023 12:00 AM EDT) 03/09/2023 03/10/2023 9:1 7 AM EDT Narrative SEE NARRATIVE - 03/14/2023 10:33 AM EDT [address] [address] Precise Winder: Marj Maza MD FOREST PATHOLOGY PROFESSOR Cytology Report FINAL DIAGNOSIS A. PAP SMEAR (SUREPATH) CE: SPECIMEN ADEQUACY: Satisfactory for evaluation; transformation zone present. INTERPRETATION: NEGATIVE FOR INTRAEPITHELIAL LESION OR MALIGNANCY. Electronically Signed Out By: DRE Scott(ASCP) The Pap test is a screening test primarily for squamous cancers and precursors and has associated false-negative and false-positive results. New technologies such as liquid-based preparations may decrease but will not eliminate all false-negative results. Regular sampling and follow-up of unexplained clinical signs and symptoms are recommended to minimize false negative results. PROCEDURES/ADDENDA HPV Testing (Requested) Ordered Date: 03/10/2023 A. PAP SMEAR (SUREPATH) CE: Human Papilloma Virus Test NEGATIVE for high-risk Human Papilloma Virus types 16, 18, 45 and the Other high risk probe set (Includes 31, 33, 35, 39, 51, 52, 56, 58, 59, 66, 68) Note: Testing performed by [employer] On[employer] HR-HPV analysis. Clinical correlation is advised. This HPV test was performed at [facility], [address] [place] [address]. This test has been FDA approved for SurePath cervical cytology specimens. The accuracy and precision of this test for all other specimen sources has been verified in the Cytopathology Laboratory of the [facility] and has not been cleared or approved by the U.S. Food and Drug Administration. Clinical correlation is advised. CLINICAL HISTORY Date of Last Menstrual Period: Not Provided Menstrual History: Amenorrhea: DUE TO BC Contraceptive History: OCPs: CONTINUOUS Other Clinical Conditions: Screening Pap SPECIMEN SOURCE A: PAP SMEAR (SUREPATH) CE Patient Name: AYLA BOURNE : 1975 (Age: 47) Sex: F [facility] Location: [facility] Date of Collection: 03/09/2023 Date of Reported: 03/14/2023 10:33 Results to: Tianna Tsang MSN Tianna Tsang CNFan CYTOLOGY ORDERABLES Final Result SEE NARRATIVE * BI MAMMOGRAM SCREENING WITH TOMOSYNTHESIS WITH CAD (BILATERAL) (09/03/2021 4:02 PM EDT) Anatomical Region Laterality Modality Breast Left, Breast Right, Breast Bilateral Bila teral Mammography 09/03/2021 4:04 PM EDT Impressions 09/03/2021 4:07 PM EDT BILATERAL BREASTS: Negative, no evidence of malignancy. Normal interval follow- up is recommended in 12 months. Bi-RADS: BI-RADS CATEGORY: 1 - Negative. DENSITY: The breast tissue is almost entirely fat. RIGHT RECOMMENDATION DUE DATE: 12 Months Recommendation: Right Mammography Screening LEFT RECOMMENDATION DUE DATE: 12 Months Recommendation: Left Mammography Screening Narrative 09/03/2021 4:07 PM EDT STUDY: Bilateral screening mammography with tomosynthesis and CAD TECHNIQUE: Bilateral full-field digital screening mammography is obtained and read in conjunction with computer-aided detection. Tomosynthesis as well as 2-D C view imaging were obtained. COMPARISON: Comparison made to 04/18/2019 BREAST COMPOSITION: The breast tissue is almost entirely fatty BILATERAL BREASTS: No new masses, suspicious calcifications or other abnormalities are seen. No significant interval change. Procedure Note Sha Teague MD - 09/03/2021 STUDY: Bilateral screening mammography with tomosynthesis and CAD TECHNIQUE: Bilateral full-field digital screening mammography is obtainedand read in conjunction with computer-aided detection. Tomosynthesis aswell as 2-D C view imaging were obtained. COMPARISON: Comparison made to 04/18/2019 BREAST COMPOSITION: The breast tissue is almost entirely fatty BILATERAL BREASTS: No new masses, suspicious calcifications or otherabnormalities are seen. No significant interval change. IMPRESSION: BILATERAL BREASTS: Negative, no evidence of malignancy. Normal intervalfollow-up is recommended in 12 months. Bi-RADS: BI-RADS CATEGORY: 1 - Negative. DENSITY: The breast tissue is almost entirely fat. RIGHT RECOMMENDATION DUE DATE: 12 Months Recommendation: Right Mammography Screening LEFT RECOMMENDATION DUE DATE: 12 Months Recommendation: Left Mammography Screening Davian Lamar MD IMG MG EXAMS Final Result * (ABNORMAL) Lipid panel (02/21/2018 1:23 PM EDT) HDL 64 mg/dL [facility] Comment: Interpretation: Risk Level Females Decreased >55mg/dL Average 50-55 mg/dL Increased <50 mg/dL CHOLESTEROL 199 0 - 240 mg/dL [facility] TRIGLYCERIDES 89 30 - 160 mg/dL [facility] LDL 117 50 - 129 mg/dL [facility] Comment: LDL levels in terms of risk for coronary heart disease: <100 mg/dL: Optimal 100-129 mg/dL: Near or above optimal 130-159 mg/dL: Borderline high 160-189 mg/dL: High >190 mg/dL: Very High CARDIAC RISK RATIO 3.1(L) 3.3 - 4.4 C [facility] Blood 02/21/2018 1:23 PM EDT 02/21/2018 1:26 PM EDT Kye Queen MD LAB BLOOD ORDERABLES Final Result [facility] [address] [place] [address] * OUTSIDE HIV TEST (06/12/2014) HIV - External Neg (patient reported) us Historical Provider LAB BLOOD ORDERABLES Reta l Result from Last 3 Months or Most Recently Relevant to Health Maintenance Insurance HEALTH SAF[employer]Y NET PARTIAL Member Subscriber Plan / Payer (Ef fective 2025-Present) Name:Ayla Bourne Relation to Subscriber:Self Name:Ayla Bourne Payer ID:Not on file Group ID:Not on file Type:Medicaid Address: [address] NON [place]SPG PCP [employer] [facility] SAFETY NET PARTIAL Member Subscriber Plan / Payer (Ef fective 2025-Present) Name:Ayla Bourne Relation to Subscriber:Self Name:Ayla Bourne Payer ID:Not on file Group ID:Not on file Type:Medicaid Address: [address] NON [place]SPG PCP [employer] SAF[employer] NET PARTIAL Member Subscriber Plan / Payer (Ef fective 2025-Present) Name:RadhashannanSocorro guillenn Relation to Subscriber:Self Name:Ayla Bourne Payer ID:Not on file Group ID:Not on file Type:Medicaid Address: [address] PCP [facility]VER [facility] CONNECTORCARE HEALTH SAFETY NET PARTIAL [employer] NON NSPG PCP [employer] [facility] NON NSPG PCP [place] [employer] Member Subscriber Plan / Payer (Ef fective 2025-) Name:Ayla Bourne Relation to Subscriber:Self Name:Ayla Bourne Payer ID:Not on file Group ID:Not on file Type:Medicaid Address: [address] NON [place]SPG PCP [facility] PARTIAL HEALTH SAFETY NET PARTIAL [employer] Care Teams Basket Operator Relationship Specialty Start Date End Date Elías Lee MD [address] [place] [address] [place] [address] PCP - General Internal Medicine 06/10/24 Additional Source Comments The information contained in this document represents components of the legal health record. It is not the complete legal health record.[facility]
--- OUTSIDE RECORDS SUMMARY | 2025-04-09 16:26 | XMS_ITS | Encounter Summary ---
Author Organization [facility] Address [address] [facility] [address] [place] [address] Phone Care Team Providers Care Director Of Pediatric Rehabilitation Name Role Phone Kye Queen MD Primary Care Provider + [phone] Kye Queen MD Unavailable [phone] Elías Lee MD Primary Care Provider Elías Lee MD Primary Care Provider Encounter Details Date Type Department Care Team (Late st Contact Info) Description 12/05/2017 Procedure Pass [address] [place] [address] Social History Tobacco Use Types Packs/Day Years [...] Event [facility] End[facility] Admitting Dept Virtual Department [address] [place] [address] Clark Cummings MD [address] [place] [address] 04/14/2025 Hospital Encounter [facility] Endoscopy Admitting Dept Virtual Department [address] [place] [address] Dejan Moreno MD 10 [facility] 2 [place] [address] 04/14/2025 Procedure Pass [facility] Endoscopy Admitting Dept Virtual Department [address] [place] [address] 09/23/2025 2:00 PM EDT Office Visit [facility] Rheumatology [address] [place] [address] Laura Landis MD [address] [facility], [address] [place] [address] Scheduled Procedures Name Priority Associated Diagnoses Date/Ti me COLONOSCOPY Special screening for malignant neoplasms, colon documented as of this encounter Visit Diagnoses Not on filedocumented [...] documented as of this encounter Care Teams Director Of Pediatric Rehabilitation Relationship Specialty Start Date End Date Kye Queen MD [address] [facility] 101 [place] [address] [email or web address] PCP - General Internal Medicine 09/11/17 07/13/23 Elías Lee MD [address] [place] [address] [facility] [address] [place] [address] PCP - General Internal Medicine 07/14/23 06/09/24 Elías Lee MD [address] [place] [address] [facility] [address] [place] [address] PCP - General Internal Medicine 06/10/24 Kye Queen MD [address] [place] [address] 101 [place] [address] [email or web address] Assigned Provider 09/15/18 06/20/20 documented as of this encounter Additional Source Comments The information contained in this document represents components of the legal health record. It is not the complete legal health record.[facility]
--- OUTSIDE RECORDS SUMMARY | 2025-04-09 16:26 | XMS_ITS | Encounter Summary ---
Author Organization [facility] Address [address] [facility] [address] [place] [address] Phone Care Team Providers Care Casing Inspector Name Role Phone Kye Queen MD Primary Care Provider + [phone] Kye Queen MD Unavailable [phone] Elías Lee MD Primary Care Provider Elías Lee MD Primary Care Provider Encounter Details Date Type Department Care Team (Late st Contact Info) Description 12/19/2017 Procedure Pass [facility] [address] [place], [place] [phone] Social History Tobacco Use Types Packs/Day Years Used Date Smoking Tobacco: Never Assessed Comments No Sex and Gender Information Value [...] Event [facility] Endoscopy Admitting Dept Virtual Department [address] [place] [address] Clark Cummings MD [address] [place] [address] 04/14/2025 Hospital Encounter [facility] Endoscopy Admitting Dept Virtual Department [address] [place] [address] Dejan Moreno MD [address] [place] [address] 2 [place] [address] [email or web address] 04/14/2025 Procedure Pass [facility] Endoscopy Admitting Dept Virtual Department [address] [place] [address] 09/23/2025 2:00 PM EDT Office Visit [facility] Rheumatology [address] [place] [address] Laura Landis MD [address] [facility], [address] [place] [address] [email or web address] Scheduled Procedures Name Priority Associated Diagnoses Date/Ti [...] CoV-Risk 03/06/2024 03/06/2024 03/17/2024 1:22 AM EDT documented as of this encounter Care Teams Casing Inspector Relationship Specialty Start Date End Date Kye Queen MD [address] [place] [address] [address] [place] [address] [email or web address] PCP - General Internal Medicine 09/11/17 07/13/23 Elías Lee MD [address] [place] [address] [address] [place] [address] PCP - General Internal Medicine 07/14/23 06/09/24 Elías Lee MD [address] [place] [address] PCP - General Internal Medicine 06/10/24 Kye Queen MD [address] [place] [address] [email or web address] Insurance Assigned Provider 09/15/18 06/20/20 documented as of this encounter Additional Source Comments The information contained in this document represents components of the legal health record. It is not the complete legal health record.[facility]
== END 2025-04-09 15:08 | disposition home or self-care (01) ==
PROVIDERS: Student in an Organized Health Care Education/Training Program; Emergency Provider Emergency Medicine
DX: G43.909 Migraine, unspecified, not intractable, without status migrainosus (principal); J10.1 Influenza due to other identified influenza virus with other respiratory manifestations; N39.0 Urinary tract infection, site not specified; R50.9 Fever, unspecified; R05.9 Cough, unspecified
CPT/HCPCS: 36415; 70450; 71046; 80048; 81001; 84484; 85025; 87502; 87635; 93005; 96361; 96374; 99284; J0131; J7120

== ENCOUNTER → 2025-04-09 12:09 | Outpatient (BNV) | payer MEDICAID, SELFPAY | PROVIDERS: Emergency Provider Emergency Medicine; Visit Provider Radiology Diagnostic Radiology | DX: R51.9 Headache, unspecified (principal); R06.02 Shortness of breath | CPT/HCPCS: 70450; 71046 ==

== ENCOUNTER → 2025-04-09 12:47 | Outpatient (BNV) | payer OTHER, SELFPAY | PROVIDERS: Emergency Provider Emergency Medicine; Visit Provider Internal Medicine | DX: R00.0 Tachycardia, unspecified (principal) | CPT/HCPCS: 93010 ==

== ENCOUNTER 2025-04-12 21:23 | Emergency (ER) | payer OTHER, SELFPAY ==
--- OUTSIDE RECORDS SUMMARY | 2024-01-02 09:40 | XMS_ITS ---
Author Organization [facility] Address [address] [place] [id number] Care Team Providers Care Supervisor [employer] Name Role Phone Jesus (RETIRED) Elías BURGER Primary Care Provide Flynn Oliva [phone] REASON FOR VISIT COLON SCREENING Encounters Encounter Location Date Provider Diagnosis [facility] [address] [place] [phone] 01/02/2024 Flynn Lopez Plan Of Treatment No Information Progress Notes * VANI VUOB: 6 (49 yo F)Acc No.[id number]:01/02/2024 Progress Notes Patient: MARCOS NEGRON Provider: Helen Lopez MD :1975 A ge:48 Y S ex:Female Date:01/02/2024 Address:[address] [place], [place] [id number] Pcp:Elías Lee (RETIRED )MD Subjective: * Chief [...] Date: 01/02/2024 Generated for Kendy roach/Dionicio/Etelvinaitting on: 06/13/2024 12:43 AM EDT
--- NOTE | ~2025-04-12 | XR_ITS ---
CLINICAL HISTORY: Laceration Exam: AP view of the right hand with oblique and lateral views of the right long finger. Comparison: None provided. Findings: Bony alignment is anatomic. No acute fracture. There is a soft tissue defect along the volar aspect of the long finger just proximal to the DIP joint. No radiopaque foreign body. Impression: Soft tissue injury along the volar aspect of the long finger without fracture or radiopaque foreign body. This document has been electronically signed by: Emir Clark MD on 04/13/2025 00:06:00
[2025-04-12 21:42] VITALS: BP 139/60; PULSE 69; RESP 16; TEMP 36.4; O2SAT 97; BMI 28.0
--- OUTSIDE RECORDS SUMMARY | 2025-04-13 00:43 | XMS_ITS | Data Portability ---
Author Organization [place] - [facility], Allergy Address [address] [address] Care Team Providers Care Second Watch Sergeant Name Role Phone ERIC FLORES Primary Care [...] mcg/actuati on nasal spray,suspe nsion 2024 025 [facility]acy #[id number], [address] [facility] [place], [address], 14:22:32 Patient TargetsNo targets recorded. 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 [employer] Symptoms having: Post Nasal Drip If [...] nose, middle ear and accessor y sinuses 030750656 Active 2017 Benign neoplasm of middle ear, nasal cavity and accessor y sinuses; Note: Date Diagnose d: 03/26/20 18 5:16 PM (D14.0) Not Available [facility] 4 02:58:13 Conducti ve hearing loss 77736894 Active 2017 Conducti ve hearing loss, unilater al, right ear, with unrestri cted hearing on the contrala teral side; Note: Date Diagnose d: 03/26/20 18 3:46 PM (H90.11) Not Available [facility] 4 02:58:11 Tinnitus of right ear 98505155412 08 Completed 201701/12/2024 Tinnitus , right ear; Note: Date Diagnose d: 03/26/20 18 3:46 PM (H93.11) Not Available [facility] 4 02:58:12 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; Note: Date Diagnose d: 05/02/20 18 10:21 AM (D35.6) Not Available [facility] 4 02:58:12 Tinnitus of vascular origin 434617066 Completed 201701/12/2024 Pulsatil e tinnitus , right ear; Note: Date Diagnose d: 05/02/20 18 10:11 AM (H93.A1) Not Available [facility] 4 02:58:14 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; Note: Date Diagnose d: 9 2:32 PM (750.26) Not Available [facility] 4 02:58:12 Stomatit is 50977653 Completed 201801/12/2024 Other oral mucositi s (ulcerat norma); Note: Date Diagnose d: 9 3:51 PM (K12.39) Not Available [facility] 4 02:58:14 Dizzines s and giddines s 863560612 Active 2018 Dizzines s and giddines s; Note: Date Diagnose d: 9 4:24 PM (R42) Not Available [facility] 4 02:58:13 Fatigue 86146363 Active 2018 Fatigue NOS; Note: Date Diagnose d: 9 4:15 PM (R53.83) Not Available [facility] 4 02:58:14 Chronic tonsilli tis 03316518 Active 2020 Chronic tonsilli tis; Note: Date Diagnose d: 1 10:35 AM (J35.01) Not Available [facility] 4 02:58:13 Allergic rhinitis 46439877 Active 2023 Other allergic rhinitis ; Note: Date Diagnose d: 10/13/2023 12:06 PM (J30.89) Not Available [facility] 4 02:58:13 Non-jennifer rgic rhinitis 50935176073 1 Active 2023 Maria Guadalupe Byrd null, [place] - [facility] 4 11:33:20 Seasonal allergic rhinitis 393501305 Active 2023 Maria Guadalupe zuñiga, [place] - [facility] 4 11:33:20 Chronic sore throat 291229767 Active 2023 Maria Guadalupe zuñiga, [place] - [facility] 4 11:52:25 Chronic pharyngi tis 786717 Active 2023 MONSERRAT GRANADOS MD [address] [facility],[place] [address], [place], [address] , [facility] - [facility] 4 11:57:03 Sensorin eural hearing loss in right ear 71861875851 100 Active 2024 Jennifer zuñiga [place] - [facility] 5 14:13:32 Problem Notes None recorded. Procedures Surgical History Date Name Laterality Status Provider Name and Address Organization Details Recorded Time 5 Comp Audio with Tymps - 55880 & 88603 completed Jennifer Coello [facility] 07/01/2024 14:13:02 4 Allergy Testing-Full completed [place] [address], [place], [address], [facility] 05/07/2024 14:46:48 Imaging Results None recorded. Procedure Notes None recorded. Medical Equipment None Reported. Allergies Allergen ID Allergen Name Allergen Category Reaction Reaction Severity Criticality Documentation Date Start Date Code Code System Note Provider Name and Address Organization Details Recorded Time 686828 Substance with sulfonami de structure and antibacte rial mechanism of action (substanc e) medicatio n other Not available Not available 10/24/2023 43852 8003 SNOMED React ion: unkno wn, unspe cifie d;; Not Available [facility] 4 01:12:07 554477 Iodinated contrast media (substanc e) medicatio n other Not available Not available 10/24/2023 55905 2003 SNOMED React ion: unkno wn, unspe cifie d;; SAMARA MOREL, [facility], [facility] [place], [address], [place] - [facility] 4 13:19:52 Medications Name Sig Start Date [...] mg capsule 07/26 completed Medicati on ID: [id number] D uration Value: 10 Reason: () Brand [...] mg tablet 10/24 completed Medicati on ID: [id number] D uration Value: 1 Reason: () Brand [...] mg tablet 05/07 completed Medicati on ID: [id number] B rand Name: predniso ne Send Method: E-Prescr ibed Sub s Allowed: subs OK Medic ationGen ericName : predniso ne Not Available Not Available Not Available topiramat e 25 mg tablet 05/07 completed Medicati on ID: [id number] B rand Name: topirama te Send Method: E-Prescr ibed Sub s Allowed: subs OK Medic ationGen ericName : topirama te Not Available Not Available Not Available metronida zole 500 mg tablet TAKE 1 TABLET BY MOUTH EVERY 12 HOURS FOR 7 DAYS active Not Available Not Available No t Available Ciloxan 0.3 % eye drops 05/07 completed Medicati on ID: [id number] D uration Value: 10 Prescri bed By [...] 5 drop 05/07 completed Medicati on ID: [id number] D uration Value: 7 Prescri bed By [...] e 50 mcg/actua tion nasal spray,[facility] [employer] [place] 2 sprays every day by intranas al route. active Not Available Not Available No t Available lamotrigi ne 100 mg tablet 05/07 completed Medicati on ID: [id number] B rand Name: lamotrig ine Send Method: E-Prescr ibed Sub s Allowed: subs OK Medic ationGen ericName : lamotrig ine Not Available Not Available Not Available estradiol 0.1 mg/24 hr weekly transderm al patch APPLY 1 PATCH TOPICALL Y ONCE A WEEK active Not Available Not Available No t Available risperido ne 0.5 mg tablet 05/07 completed Medicati on ID: [id number] B rand Name: risperid one Send Method: [...] mg tablet 05/07 completed Medicati on ID: [id number] B rand Name: Sherry (28) Sen d [...] Details Last Updated DateTime 07/01/2024 162.56 cm 26586.82 g Lizabeth Hamilton [place] [facility] 07/01/2024 13:13:49 Date Recorded Body height Body mass index (BMI) Body weight Provider Name and Address Organization Details Last Updated DateTime 04/09/2024 162.56 cm 26.3 kg/m2 10313.63 g Lali Hatch [place] - [facility] 04/09/2024 11:19:40 Date Recorded Body height Body mass index (BMI) Body weight Heart rate Oxygen saturation Oxygen saturation in Arterial blood by Pulse oximetry Systolic And Diastolic Provider Name and Address Organization Details Last Updated DateTime 162.56 cm 26.6 kg/m2 00953.8 2 g 86 /min 97 % 97 % 120/72 mm[Hg] SAMARA TORRES, [facility] [address] [facility], [address], [place], [address], [place] - [facility] 13:19:09 Social History Question Answer Notes LastModified by Organizat ion Details LastModified Time Tobacco Smoking Status Former Smoker SAMARA MOREL, [facility] [address] [facility] [address], [place], [address], [facility] - [facility] 05/07/2024 13:23:35 When Did You Quit Smoking? [...] ICD10 Code Diagnosis IMO Codes Diagnosis Note [id number] MARIA GUADALUPE BYRD PA-C [facility] [address] [address] 04/09/2024 10:58:12 04/09/2024 11:38:39 Allergic rhinitis 35252270 J30.89 Chronic pharyngitis 1400 04 J31.2 [id number] SAMARA TORRES [facility] Allergy [address] [facility],[place] [facility] [address] [place] [address] 05/07/2024 12:58:32 05/07/2024 14:47:44 Allergic rhinitis 19486392 J30.89 [id number] MARIA GUADALUPE BYRD PA-C [facility] [address] [place] [address] 07/01/2024 13:07:56 07/01/2024 14:29:22 Sensorineural hearing loss in right ear 1014793705 9100 H90.41 Audiologic al evaluation results: Right ear: Normal through 4 kHz sloping to a mild sensorineu ral hearing loss with excellent word recognitio n. Left ear: Normal hearing with excellent word recognitio n. Tympanomet ry: Right Ear:Type As Left Ear:Type C Allergic rhinitis 343533 04 J30.9 History of neoplasm 2759 43115 Z85.9 Health Concerns Section Related Observation LastModified by Organization Detai ls LastModified Time None Recorded Concern Status LastModified by Organization Details LastModified Time None Recorded Advance Directives Directive None Recorded Payers Insurance Date Sequence Insurance Name Policy Number Policy Puri Covered Member ID Puri Member ID Guarantor Name 09/24/2024 1 [facility] HP - DOS ON OR AFTER 2022 - [facility] ACO (MEDICAID REPLACEMENT - HMO) Ayla Bourne [id number] Ayla Buorne 04/02/2024 1 *SELF PAY* Danae Bourne 04/23/2024 1 [place] [facility] Ayla Bourne [id number] Ayla Bourne Notes Date Note Type Note Provider Name and Address Organization Details Recorded Time 04/09/2024 text/html ROS as noted in the [facility] 48 year old female presents for evaluation [...] paraganglioma and stereotactic radiosurgery. MONSERRAT KHAN MD [address] [place] [address], [address], [facility] - [facility] 04/09/2024 11:57:39 07/01/2024 text/html ROS as noted in the [facility] 48 year old female presents for audiometric testing and to review her allergy testing. She has a history of recurrent sore throats. She has a history of right ear paraganglioma and stereotactic radiosurgery. MONSERRAT KHAN MD [address] [place] [address], [place], [address], [facility] - [facility] 07/01/2024 16:46:15 OBGyn Episode No OBEpisode recorded.
--- OUTSIDE RECORDS SUMMARY | 2025-04-13 00:43 | XMS_ITS | Encounter Summary ---
Author Organization [facility] Address [address] [place] [address] Phone Care Team Providers Care Medical Parasitologist Name Role Phone Kye Queen MD Primary Care Provider [phone] Elías Lee MD Primary Care Provider Elías Lee MD Primary Care Provider Encounter Details Date Type Department Care Team (Late st Contact Info) Description 05/26/2021 Procedure Pass [facility], [address] [address] Social History Tobacco Use Types Packs/Day Years Used Date Smoking Tobacco: Former Cigarettes 1 15.5 0 06/12/1995 - 12/13/2010 Smokeless Tobacco: Never Alcohol Use Standard Drinks/Week Comments No 0 (1 standard drink = 0.6 oz pur e alcohol) Child or Family Care Answer Date Record ed Do you have problems with on e of the following making it difficult for you to work, study, or receive health care? No 03/19/2021 Education Answer Date Recorded Are you interested in help w ith more adult education (for example, completing high school, GED, job training, learning the Irish language, technical skills, or developing parenting skills)? No 03/19/2021 Food Answer Date Recorded Within the past 6 months we worried whether our food would run out before we got money to buy more. Sometimes True 021 Within the past 6 months the [...] basis, and looking for work? No 03/19/2021 Comments No Sex and Gender Information Value [...] Event [facility] Admitting [facility] Virtual Department [address] [place] [phone] Clark Cummings MD [address] [place] [phone] [email or web address] 04/14/2025 Hospital Encounter [facility]mitting [facility] Virtual Department [address] [place] [address] Dejan Moreno MD [address] [place] [phone] [email or web address] 04/14/2025 Procedure Pass [facility] Admitting [facility] Virtual Department [address] [place] [address] 09/23/2025 2:00 PM EDT Office Visit [facility] Rheumatology [address] [place] [address] Laura Landis MD [address] [facility], [address] [place] [address] [email or web address] Scheduled Procedures Name Priority Associated Diagnoses Date/Ti me COLONOSCOPY Special screening for malignant neoplasms, colon documented as of this encounter Visit Diagnoses Not on filedocumented in this encounter Additional Health Concerns Infection Onset Date Last Indicated Resolved Time CoV-Risk 03/06/2024 03/06/2024 03/17/2024 1:22 AM EDT Assessment Noted Time PHQ-2 Depression Total Score: 0 03/19/20 2:14 PM EDT documented as of this encounter Care Teams Medical Parasitologist Relationship Specialty Start Date End Date Kye Queen MD [address] [place] [address] [address] [place] [address] [email or web address] PCP - General Internal Medicine 09/11/1707/13/23 Elías Lee MD [address] [place] [address] [address] PCP - General Internal Medicine 07/14/23 06/09/24 Elías Lee MD [address] [place] [address] [address] PCP - General Internal Medicine 06/10/24 documented as of this encounter Additional Source Comments The information contained in this document represents components of the legal health record. It is not the complete legal health record.[facility]
--- OUTSIDE RECORDS SUMMARY | 2025-04-13 00:43 | XMS_ITS | Patient Health Record ---
Author Organization [facility] Address [address] [place] [address] Care Team Providers Care Informatica Name Role Phone Jesus (RETIRED) Elías BURGER Primary Care Provide r Unavailable Flynn Lopez Unavailable [phone] Reason For Referral No Information Plan Of Treatment No Information Insurance Providers Payer Name Payer Address Payer Phone Subscriber Number Group Number Insured Name Patient Relationship to Insured Coverage Start Date Coverage End Date [employer] [address] [place] [address] [id number] MARCOS VU Self - patient is the insured
--- OUTSIDE RECORDS SUMMARY | 2025-04-13 00:43 | XMS_ITS | Data Portability ---
Author Organization [place] - [facility], [facility] Address [address] [place] [address] Care Team Providers Care E Business Manager Name Role Phone ERIC FLORES Primary Care Provider Assessment No assessment recorded. Plan of Treatment Reminders Order Date Submit Date Provider Last Modified By Organization Details Last Modified Time Details Appointments None recorded . Lab None recorded . Referral physical therapis t referral - Evaluate & Rx Cervical Stabiliz ation Program trigger point release, traction 2023 024 [facility] [place], [address] [place] [address] Rd, [address], [place], [address], 4 12:04:27 physical therapis t referral - right lateral epicondy litis rom, stretchi ng, strength ening 2023 024 [facility] [place], [address] [place] [address] Rd, [address], [place], [address], 4 12:07:42 Procedures None recorded . Surgeries None recorded . Imaging XR, shoulder , 2 or more view - rm 119 c spine as well 2023 024 [facility], [address], [address], [place], [address], 4 13:00:38 XR, cervical spine, 1 view - rm 119 2023 024 [facility], [address], [address], [place], [address], 4 13:00:39 XR, elbow, 3 or more view - new pt 3 views right elbow rm 101 2023 024 [facility] Office, [address], [address], [place], [address], 4 11:01:09 Medication Orders Celebrex 200 mg capsule 2023 024 [facility], [address] [place] [address], [address], 4 11:01:09 Patient TargetsNo targets recorded. Patient [...] cervi lukasz spine , 1 view http:/ [email or web address] ?Encry pted=s hAaTro YD8dLq bEUv6g %2BXZw aYqtaq 0bqfl% 2Fg9IQ a4ajBk vP9nXo QUaueC m3YtLR FvZlgJ JJ8mAn HZtai3 3b0936 AC0Kub n%2BNU areUC8 mr84%3 D INTERFACE [facility] Office [address], [place], [address], 11/22/2023 10:46:07 11/22/19 24 11/22/2023 XR, cervi lukasz spine , 1 view http:/ [email or web address] ?Encry pted=s hAaTro YD8dLq bEUv6g %2BXZw aYqtaq 0bqfl% 2Fg9IQ a4ajBk vP9nXo QUaueC m3YtLR FvZlgJ JJ8mAn HZtai3 1i3841 AC0Kub n%2BNU areUC8 mr84%3 D INTERFACE [facility] [address], [place], [address], 11/22/2023 10:46:09 11/22/19 24 11/22/2023 XR, shanice bigg, 2 or more view http:/ [email or web address] ?Encry pted=s hAaTro YD8dLq bEUv6g %2BXZw aYqtaq 0bqfl% 2Fg9IQ a4ajBk vP9nXo QUaueC m3YtLR FvZlg JJ8[place] HZtai3 7r6905 AC0Kub n%2BNU aTeUC8 mr84%3 D INTERFACE [facility] [address], [place], [address], 11/22/2023 10:48:54 11/22/19 24 11/22/2023 XR, shanice pride, 2 or more view http:/ [email or web address] ?Encry pted=s hAaTro YD8dLq bEUv6g %2BXZw aYqtaq 0bqfl% 2Fg9IQ a4ajBk vP9nXo QUaueC m3YtLR FvZlg JJ8mAn HZtai3 1e4296 AC0Kub n%2BNU aTeUC8 mr84%3 D INTERFACE [facility] [address], [place], [address], 11/22/2023 10:48:56 02/10/20 24 11/30/2021 imagi ng/di jonathanos tic resul t No observ ation record ed. [email or web address] Not Available 01/12 07:57:49 Result Notes Documentation Provider Name and Address Organization Details Recorded Time Xr, Cervical Spine, 1 View : [email or web address]? Encrypted=fuJsEkvQA3sGugP Uv6g%4HPTvyKoucx5pxav%2Fg 7AYy6dyMkyE7cFmLNtwtIt2Hr MKVyIesOGY2vSyLJwaj00c541 7NO7Gqkp%1AGSctjCA0jj29%3 D Not Available [facility] 11/22/2023 10:46:07 Xr, Cervical Spine, 1 View : [email or web address]? Encrypted=uaGcUofJC0sMybZ Uv6g%1ENYefChtgr2fjmp%2Fg 2HRp9qmQoeO5lJbLEmmrQi1Ik PADnXklEDK7sBvRLwwj10p312 6WU6Bmvq%0DNGvcsPN5yx37%3 D Not Available [facility] 11/22/2023 10:46:09 Xr, Shoulder, 2 Or More View : [email or web address]? Encrypted=uzXdBxbDD1cZsqZ Uv6g%2VUYtiUahyg1wfsu%2Fg 0DQl6gfPizK2aSzQNwcpKr6Yp GEGjWzlZKO7kSgIDvwg46p347 0JJ3Shxb%4XDAtZnCW3xw62%3 D Not Available [facility] 11/22/2023 10:48:54 Xr, Shoulder, 2 Or More View : [email or web address]? Encrypted=axNmFngHW8nHjsE Uv6g%8BSBahOwnhz9blvs%2Fg 3LGw5mrBnvC8tGhJLnlzDp7Kf DCQtNjvYAF3pHxPQpaa08s445 5CW0Jeri%6FXIhWhRW4cq34%3 D Not Available [facility] 11/22/2023 10:48:56 Problems Name Problem SNOMED Code Status Onset Date Resolution Date Notes Provider Name and Address Organization Details Recorded Time Impingement syndrome of right shoulder region 9119058799257 02 Active 2023 Ely Wong i, PA-C [address], [place], [address], [facility] 4 12:15:52 Neck pain 02473264 Active 2023 Ely Wong i, PA-C [address], [facility], [address], [facility] 4 12:15:56 Pain of right shoulder joint 9364604528456 9100 Active 2024 Ely Daigle PA-C [address], [place], [address], [facility] 5 14:10:22 Myofascial pain 297236183 Active 2024 KAYLIA L'HEUREUX [facility] 5 15:10:43 Problem Notes None recorded. Procedures Surgical History Date Name Laterality Status Provider Name and Address Organization Details Recorded Time 4 Sports Shoulder completed Ely Shay PA-C [address], [place], [address], [facility] 11/22/2023 12:15:46 Imaging Results None recorded. Procedure Notes None recorded. Medical Equipment None Reported. Allergies Allergen ID Allergen Name Allergen Category Reaction Reaction Severity Criticality Documentation Date Start Date Code Code System Note Provider Name and Address Organization Details Recorded Time 20836 Substance with sulfonami de structure and antibacte rial mechanism of action (substanc e) medicatio n Not available Not available Not available 08/14/20232021 16362 8003 SNOMED Not Available [facility] 4 15:12:59 Medications Name Sig Start Date Stop Date Status Note LastModified by Organization Details LastModified Time w-estrogen vag crm 0.2mg/ml Apply 1.0 gm vaginally 2 to 3 times weekly as needed active Not Available Not Available No t Available dhea (keyla) 25mg capsule take 1 capsule by mouth once daily 11/21 completed Not Available Not Available Not Available amoxicillin 500 mg capsule TAKE 1 [...] Updated DateTime 08/07/2024 162.56 cm 28.3 kg/m2 76965.74 g MICHELLE L'HEUREUX [facility] 08/07/2024 15:25:43 Date Recorded Body height Body mass index (BMI) Body weight Provider Name and Address Organization Details Last Updated DateTime 11/08/2023 162.56 cm 28.3 kg/m2 12455.74 g Yakelin Carvajal [facility] 11/08/2023 08:56:45 Date Recorded Body height Body mass index (BMI) Body weight Provider Name and Address Organization Details Last Updated DateTime 11/22/2023 162.56 cm 28.3 kg/m2 99136.74 g ROMMEL Magaña [facility] 11/22/2023 10:36:36 Social History Question Answer Notes LastModified by Organizat ion Details LastModified Time Tobacco Smoking Status Former Smoker ROMMEL zuñiga, [facility] 11/22/2023 [...] other forms of tobacco or nicotine? No [email or web address] Information not available 11/22/2023 What is your [...] ICD10 Code Diagnosis IMO Codes Diagnosis Note [id number] STEPHANIE Blount [address] [place] [address] 11/08/2023 08:51:22 11/28/2023 11:00:00 Injury of elbow 675699119 S59.901A Right late ral elbow tendinopathy 8129770505 15771 M77.11 2932468 STEPHANIE Barahona [address] [place] [address] 11/22/2023 10:31:46 12/12/2023 13:00:38 Pain of right shoulder joint 6546612599 1059347 M25.511 Impingemen t syndrome of right shoulder region 3769299307 12411 M75.41 Neck pain 19030107 M54.2 1717812 STEPHANIE Kikrpatrick [address] [place] [address] 08/07/2024 15:12:34 08/23/2024 08:58:28 Neck pain 98995821 M54.2 Health Concerns Section Related Observation LastModified by Organization Detai ls LastModified Time None Recorded Concern Status LastModified by Organization Details LastModified Time None Recorded Advance Directives Directive None Recorded Payers Insurance Date Sequence Insurance Name Policy Number Policy Puri Covered Member ID Puri Member ID Guarantor Name 08/23/2024 1 [facility] Ayla Chavira Tayla [id number] Ayla Bourne 08/05/2024 1 [employer] (POS II) [id number] Ayla Bourne [id number] Ayla Bourne Notes Date Note Type Note Provider Name and Address Organization Details Recorded Time 11/08/2023 text/html I am seeing the patient today under the supervision of Dr. Malloy who was available but did not see the patient. 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 Christie Toussaint PA-C [address], [place], [address], [facility] 11/08/2023 09:25:15 11/22/2023 text/html I am seeing the patient today under the supervision of Dr. Seay who was available but did not see the patient. HPI: 48-year-old caycj-ftxu-xvmyprzi female patient presents today for right scapula [...] 1v c-spine ordered, obtained and reviewed at [facility] today. AP view demonstrates well preserved glenohumeral [...] and agrees with this plan. Speech recognition starch mangle tender software was used to create portions of this document. An attempt at proofreading has been made to minimize errors. Please call for corrections. Ely Shay PA-C [address], [place], [address], [facility] 11/22/2023 12:18:02 08/07/2024 text/html I am seeing the patient today under the supervision of Dr. Lerma who was available but did not see the patient. CLINICAL UPDATE: 49-year-old mkmol-nbjf-sxakbtuf female patient presents today for right scapula [...] Right shoulder and 1v c-spine reviewed at [facility] today. AP view demonstrates well preserved glenohumeral [...] and agrees with this plan. Speech recognition starch mangle tender software was used to create portions of this document. An attempt at proofreading has been made to minimize errors. Please call for corrections. Ely Daigle PA-C [address] [facility] [address], [place], [address], [facility] 08/07/2024 16:44:42 OBGyn Episode No OBEpisode recorded.
--- OUTSIDE RECORDS SUMMARY | 2025-04-13 00:43 | XMS_ITS | Encounter Summary ---
Author Organization [facility] Address [address] [facility] [address] [place] [address] Phone Care Team Providers Care Slime Plant Operator Helper Name Role Phone Kye Queen MD Primary Care Provider + [phone] Kye Queen MD Unavailable [phone] Elías Lee MD Primary Care Provider Elías Lee MD Primary Care Provider Encounter Details Date Type Department Care Team (Late st Contact Info) Description 12/19/2017 Procedure Pass [facility],Outside Imaging [address] [place], [place] [id number] Social History Tobacco Use Types Packs/Day Years [...] [facility] Admitting [facility] Virtual Department [address] [place] [address] Clark Cummings MD 30 [place] [address] 04/14/2025 Hospital Encounter [facility] Admitting [facility] Virtual Department [address] [place] [address] Dejan Moreno MD [address] [place] [address] 2 [place] [address] [email or web address] 04/14/2025 Procedure Pass [facility] Endoscopy Admitting Dept Virtual Department [address] [place] [address] 09/23/2025 2:00 PM EDT Office Visit [facility] Rheumatology [address] [place] [address] Laura Landis MD [address] [facility], [address] [place] [address] [email or web address] Scheduled Procedures Name Priority Associated Diagnoses Date/Ti [...] documented as of this encounter Care Teams Slime Plant Operator Helper Relationship Specialty Start Date End Date Kye Queen MD [address] [place] [address] [address] [place] [address] [email or web address] PCP - General Internal Medicine 09/11/17 07/13/23 Elías Lee MD [address] [place] [address] 303 [place] [address] PCP - General Internal Medicine 07/14/23 06/09/24 Elías Lee MD [address] [place] [address] PCP - General Internal Medicine 06/10/24 Kye Queen MD [address] [place] [address] [email or web address] Insurance Assigned Provider 09/15/18 06/20/20 documented as of this encounter Additional Source Comments The information contained in this document represents components of the legal health record. It is not the complete legal health record.[facility]
--- OUTSIDE RECORDS SUMMARY | 2025-04-13 00:43 | XMS_ITS | Encounter Summary ---
Author Organization [facility] Address [address] [place] [address] Phone Care Team Providers Care Plant Accountant Name Role Phone Elías Lee MD Primary Care Provider Reason for Visit * Reason Onset Date Comments Labs 04/10/2025 Encounter Details Date Type Department Care Team (Late st Contact Info) Description 04/10/2025 Telephone [employer] [facility] Rheumatology [address] [place] [address] Laura Landis MD [address] [facility], [address] [place] [address] [email or web address] Social History Tobacco Use Types Packs/Day Years Used Date Smoking Tobacco: Former Cigarettes 1 15.5 0 06/12/1995 - 12/13/2010 Smokeless Tobacco: Never Alcohol Use Standard Drinks/Week Comments Yes 0 [...] PM EDT documented as of this encounter Progress Notes * Maryann Gramajo RN - 04/10/2025 3:26 PM EDT Lab slips mailed to patient. * Maryann Gramajo RN - 04/10/2025 3:20 PM EDT Has been sick and now has the flu which is why hasn't had a chance to get labs done yet. Will go when able. She's not sure if will go to [facility] or another outside lab. I told her I will mail her the orders and she can take them to a lab of her choice. She will notify office once gets done so we can keep an eye out for results. documented in this encounter Plan of Treatment Upcoming Encounters Date Type Department Care Team (Late st Contact Info) Description 02/10/2025 11:59 PM EDT Anesthesia Event [facility] Admitting [facility] Virtual Department [address] [place] [address] Clark Cummings MD [address] [place] [address] 04/14/2025 Hospital Encounter [facility] Admitting Dept Virtual Department [address] [place] [address] Dejan Moreno MD [address] [place] [address] 04/14/2025 Procedure Pass [facility] Endoscopy Admitting Dept Virtual Department [address] [place] [address] 09/23/2025 2:00 PM EDT Office Visit [facility] Rheumatology [address] [place] [address] Laura Landis MD [address] [facility], [address] [place] [address] Scheduled Procedures Name Priority Associated Diagnoses Date/Ti me COLONOSCOPY Special screening for malignant neoplasms, colon documented as of this encounter Visit Diagnoses Not on filedocumented in this encounter Additional Health Concerns Assessment Noted Time PHQ-2 Depression Total Score: 0 03/19/20 21 2:14 PM EDT documented as of this encounter Care Teams Plant Accountant Relationship Specialty Start Date End Date Elías Lee MD [address] [place] [address] [place] [address] PCP - General Internal Medicine 06/10/24 documented as of this encounter Additional Source Comments The information contained in this document represents components of the legal health record. It is not the complete legal health record.[facility]
--- OUTSIDE RECORDS SUMMARY | 2025-04-13 00:43 | XMS_ITS | Encounter Summary ---
Author Organization [facility] Address [address] [employer] [facility] [address] [place] [address] Phone Care Team Providers Care Medical Practice Assistant Name Role Phone Kye Queen MD Primary Care Provider + [phone] Kye Queen MD Unavailable [phone] Elías Lee MD Primary Care Provider Elías Lee MD Primary Care Provider Reason for Referral * MRI/CAT Scan - Closed Specialty Diagnoses / Procedures Referred By Contac t Referred To Contact Procedures MRI Abdomen Outside (No Interpretation) System, Provider Not In, [facility] [employer] [address] [place] [address] Referral ID Status Reason Start Date Expiration Date Visits Re quested Visits Authorized [id number] Closed 12/19/2017 12/19/2018 1 1 Encounter Details Date Type Department Care Team (Late st Contact Info) Description 12/19/2017 Ancillary Orders [facility],Outside Imaging [address] [place] [address] System, Provider Not In, [place] [address] Social History Tobacco Use Types Packs/Day Years [...] Event [facility] Endoscopy Admitting Dept Virtual Department [address] [place] [address] Clark Cummings MD 30 [place] [address] 04/14/2025 Hospital Encounter [facility] Endoscopy Admitting Dept Virtual Department [address] [place] [address] Dejan Moreno MD [address] [place] [address] 04/14/2025 Procedure Pass [facility] Endoscopy Admitting Dept Virtual Department [address] [place] [address] 09/23/2025 2:00 PM EDT Office Visit [facility] Rheumatology [address] [place] [address] Laura Landis MD [address] [place] [address], [address] [place] [address] Scheduled Procedures Name Priority Associated Diagnoses Date/Ti [...] as of this encounter Care Teams Medical Practice Assistant Relationship Specialty Start Date End Date Kye Queen MD [address] [place] [address] [email or web address] PCP - General Internal Medicine 09/11/17 07/13/23 Elías Lee MD [address] [place] [address] [address] PCP - General Internal Medicine 07/14/23 06/09/24 Elías Lee MD [address] [place] [address] [address] PCP - General Internal Medicine 06/10/24 Kye Queen MD [address] [place] [address] [email or web address] Insurance Assigned Provider 09/15/18 06/20/20 documented as of this encounter Additional Source Comments The information contained in this document represents components of the legal health record. It is not the complete legal health record.[facility]
--- OUTSIDE RECORDS SUMMARY | 2025-04-13 00:44 | XMS_ITS | Clinical Summary ---
Author Organization [facility] Address [address] [employer] [facility] [address] [place] [address] Phone Care Team Providers Care Health Director Name Role Phone Elías Lee MD Primary [...] Encounters Date Type Department Care Team Description 04/10/2025 Telephone [facility] Rheumatology [address] [place] [address] Laura Landis MD Labs 03/28/2025 10:00 AM EDT Office Visit [facility] Rheumatology [address] [place] [address] Laura Ladnis MD Positive PATRIZIA (antinuclear antibody) (Primary Dx); [...] you moved in the past 12 mon th? One time 03/19/2021 Paying for Meds Answer [...] Event [facility] Endoscopy Admitting Dept Virtual Department [address] [place] [address] Clark Cummings MD [address] [place] [address] 04/14/2025 Hospital Encounter [facility] Endoscopy Admitting Dept Virtual Department [address] [place] [address] Dejan Moreno MD [address] [place] [address] 04/14/2025 Procedure Pass [facility] Endoscopy Admitting Dept Virtual Department [address] [place] [address] 09/23/2025 2:00 PM EDT Office Visit [facility] Rheumatology 22 [place] [address] Laura Landis MD [address] [facility], [address] [place] [address] Scheduled Procedures Name Priority Associated Diagnoses Date/Ti [...] this topic Medical Devices Implanted Type Area Hull Inspector Device Identifier Shelf Expiration Date Model / [...] SEE NARRATIVE - 03/14/2023 10:33 [place] [address] Registered Mail Clerk: Marj Maza MD STEEL ESTIMATOR Cytology Report FINAL DIAGNOSIS A. PAP SMEAR [...] 59, 66, 68) Note: Testing performed by [employer] HR-HPV analysis. Clinical correlation is advised. This HPV test was performed at [facility], [address] [place] [address]. This test has been FDA approved for [employer] cervical cytology specimens. The accuracy and precision of this test for all other specimen sources has been verified in the Cytopathology Laboratory of the [facility] and has not been cleared or approved by the U.S. Food and Drug Administration. Clinical correlation is advised. CLINICAL HISTORY Date of Last Menstrual Period: Not Provided Menstrual History: Amenorrhea: DUE TO BC Contraceptive History: OCPs: CONTINUOUS Other Clinical Conditions: Screening Pap SPECIMEN SOURCE A: PAP SMEAR (SUREPATH) CE Patient Name: AYLA BOURNE : 1975 (Age: 47) Sex: F [facility]: [facility] Location: [facility] Date of Collection: 03/09/2023 Date of [...] (02/21/2018 1:23 PM EDT) HDL 64 mg/dL [facility] Comment: Interpretation: Risk Level Females Decreased >55mg/dL Average 50-55 mg/dL Increased <50 mg/dL CHOLESTEROL 199 0 - 240 mg/dL [facility] TRIGLYCERIDES 89 30 - 160 mg/dL [facility] LDL 117 50 - 129 mg/dL [facility] Comment: LDL levels in terms of risk for coronary heart disease: <100 mg/dL: Optimal 100-129 mg/dL: Near or above optimal 130-159 mg/dL: Borderline high 160-189 mg/dL: High >190 mg/dL: Very High CARDIAC RISK RATIO 3.1(L) 3.3 - 4.4 C [facility] Blood 02/21/2018 1:23 PM EDT 02/21/2018 1:26 PM EDT Kye Queen MD LAB BLOOD ORDERABLES Final Result [facility] [address] [place] [address] * OUTSIDE HIV TEST (06/12/2014) HIV - External Neg (patient reported) us Historical Provider LAB BLOOD ORDERABLES Reta helms Result from Last 3 Months or Most Recently Relevant to Health Maintenance Insurance HEALTH SAFETY NET PARTIAL NON NSP PCP [employer] M2G SAFETY NET PARTIAL WELLSENSE NON NSPG PCP S[employer] ENSE NON NSPG PCP [place] CONNECTORCARE WELLSENSE NON NSPG PCP S[employer] M2G SAFETY NET PARTIAL Member Subscriber Plan / Payer (Ef fective 2025-Present) Name:Ayla Bourne Relation to Subscriber:Self Name:Ayla Bourne Payer ID:Not on file Group ID:Not on file Type:Medicaid [address] PCP [employer] HEALTH SAFETY NET PARTIAL [facility] N[facility] P[facility] SILVER [facility] [address] SAFETY NET PARTIAL HEALTH SAFETY NET PARTIAL HEALTH SAFETY NET PARTIAL [employer] Care Teams Health Director Relationship Specialty Start Date End Date Elías Lee MD [address] [place] [address] [place] [address] PCP - General Internal Medicine 06/10/24 Additional Source Comments The information contained in this document represents components of the legal health record. It is not the complete legal health record[facility]
== END 2025-04-13 00:58 | disposition left against medical advice (07) ==
PROVIDERS: Emergency Provider Emergency Medicine
DX: M79.641 Pain in right hand (principal)
CPT/HCPCS: 73140; 99281

== ENCOUNTER → 2025-04-12 23:25 | Outpatient (BNV) | payer OTHER, SELFPAY | PROVIDERS: Emergency Provider Emergency Medicine; Visit Provider Radiology Diagnostic Radiology | DX: S61.212A Laceration without foreign body of right middle finger without damage to nail, initial encounter (principal) | CPT/HCPCS: 73140 ==